=== PATIENT | female | born 1945 | race African-American/Black ===

== ENCOUNTER 2018-12-01 14:11 | Inpatient (IN) | payer OTHER ==
--- NOTE | 2018-12-01 15:09 | PDOC ---
History of Present Illness - General Chief Complaint: Vaginal Bleeding Stated Complaint: VAGINAL BLEED Time Seen by Provider: 12/01/18 14:56 History Source: Patient Exam Limitations: No Limitations - History of Present Illness Initial Comments: 73 yo F w a pmh of COPD presents to the ER with exertional lightheadedness, dizziness, and heavy vaginal bleeding of one days duration. She was recently hospitalized at [facility] 6 days prior for a UTI where she was incidentally found to have a low hemoglobin in the 6's and ended up requiring 3 blood transfusions. When she left the hospital her hB was 10. Today she states that she experienced vaginal bleeding for the first time and now things make a bit more sense bc they did not know from where she was losing blood when she was at [facility]. The patient also endorses a recent 10 IB unintentional weight loss over the past 2 months as well as loss of appetite. She is typically able to eat a significant amount of food but recently she is simply not hungry. She also endorses on and off low grade fevers for the past month as well as generalized weakness. She has a significant 40+ pack year smoking history in the past although she has not smoked for the past 15 years. She has been experiencing a significant amount of hematuria and has suprapubic abdominal pain. She denies recent fchest pain, SOB, difficulty breathing, headache, blurry vision, or back pain. PCP: Vicente Roldan S - [phone] from [facility] PSH: Tubes tied many years ago Social Hx: Former 40 Pack year smoking history. Former alcohol abuser. Denies current alcohol, cigarettes, or illicit drug usage. Allergies: Shellfish. Penicillins. Past History - Past Medical History Allergies/Adverse Reactions: Allergies Allergy/AdvReac Type Severity Reaction Status Date / Time Penicillins Allergy Verified 12/01/18 19:09 shellfish derived Allergy Verified 12/01/18 14:30 Home Medications: Ambulatory Orders Albuterol Sulfate Inhaler - [Ventolin Hfa Inhaler -] 1 puff IH PRN 12/01/18 Ferrous Sulfate [Iron] 325 mg PO DAILY 12/01/18 Fluticasone Propionate [Flovent Diskus] 100 mcg IH PRN 12/01/18 Sennosides/Docusate Sodium [Senna-Docusate Sodium Tablet] 1 each PO PRN COPD: Yes - Suicide/Smoking/Psychosocial Hx Smoking History: Former smoker Have you smoked in the past 12 months: No Information on smoking cessation initiated: No Hx Alcohol Use: Yes (past) Drug/Substance Use Hx: No Review of Systems - Review of Systems Able to Perform ROS?: Yes Comments:: CONSTITUTIONAL: Present: Fatigue, weight loss, fevers, chills EYES: Absent: visual changes ENT: Absent: ear pain, no sore throat CARDIOVASCULAR: Absent: chest pain, no palpitations RESPIRATORY: Absent: cough, no SOB GI: Present: Abdominal pain Absent: no nausea, no vomiting, no constipation, no diarrhea GENITOURINARY: Present: Hematuria, dysuria Absent: no frequency MUSKULOSKELETAL: Absent: back pain, no arthralgia, no myalgia SKIN: Absent: rash NEURO: Absent: headache *Physical Exam - Vital Signs Last Vital Signs Temp Pulse Resp BP Pulse Ox 97.6 F 85 18 140/60 100 12/01/18 14:32 12/01/18 14:32 12/01/18 14:32 12/01/18 14:32 12/01/18 14:32 - Physical Exam Comments: GENERAL: Patient appears pale and mal-nourished. No apparent distress. HEENT: Normocephalic, atraumatic. PERRL, EOM intact. CARDIOVASCULAR: Normal S1, S2. Regular rate and rhythm. PULMONARY: No evidence of respiratory distress. Lungs clear to auscultation bilaterally. No wheezing, rales or rhonchi. ABDOMEN: There is suprapubic TTP. Abdomen is still soft and non-distended. EXTREMITIES: Normal ROM in all four extremities. No gross deformities. SKIN: cool, dry. No rash NEUROLOGICAL: No focal neurological deficits. Female Pelvic Exam: positive: cervical os closed, normal adnexa, normal size ovaries, discharge (blood), Urethra (bloody), vaginal bleeding, other (atrophied ). negative: normal external exam (blood on labia majora), CMT, lesions, Bartholin mass, Scalene Gland, adnexal tenderness ED Treatment Course - LABORATORY CBC & Chemistry Diagram: 12/01/18 15:32 12/01/18 15:32 Medical Decision Making - Medical Decision Making 73 yo F w a pmh of COPD presents to the ER with exertional lightheadedness, dizziness, and heavy vaginal bleeding of one days duration. She was recently hospitalized at [facility] 6 days prior for a UTI where she was incidentally found to have a low hemoglobin in the 6's and ended up requiring 3 blood transfusions. When she left the hospital her hB was 10. Today she states that she experienced vaginal bleeding for the first time and now things make a bit more sense bc they did not know from where she was losing blood when she was at [facility]. The patient also endorses a recent 10 IB unintentional weight loss over the past 2 months as well as loss of appetite. She is typically able to eat a significant amount of food but recently she is simply not hungry. She also endorses on and off low grade fevers for the past month as well as generalized weakness. She has a significant 40+ pack year smoking history in the past although she has not smoked for the past 15 years. She has been experiencing a significant amount of hematuria and has suprapubic abdominal pain. She denies recent fchest pain, SOB, difficulty breathing, headache, blurry vision, or back pain. VS: WNL DDx IBNLT: Bladder cancer, schistosomiosis, uterine mass - polyp vs leighmyoma vs hypertrophy vs mass, UTI/pylo, urinary obstruction/cystocele. Plan: Labs, Urine, Pelvic US, IV hydration, re-assess. Cr on November 25 at [facility] was 1.6 - Here today the Cr 1.7 - In September at [facility] the patient had a urine culture which grew klebsiella which was susceptible to TMP/SMX, amoxicillin, ampicillin, and Cipro Pelvic US shows fibroids but is not definitive. - Will admit patient to med/surge to have malignancy ruled out. *DC/Admit/Observation/Transfer Diagnosis at time of Disposition: Hypotension, Lightheadedness, Hematuria - Discharge Dispostion Condition at time of disposition: Guarded Decision to Admit order: Yes - Referrals Referrals: ON STAFF,NOT [Primary Care Provider] - - Patient Instructions - Post Discharge Activity
[2018-12-01] MEDS ORDERED: SODIUM CHLORIDE 1,000 ML IV STA (15:10)
--- NOTE | 2018-12-01 15:11 | PDOC ---
Attending Attestation - HPI HPI: 12/01/18 16:28 The patient is a 73 year old female, with a significant PMH of COPD who presents to the emergency department with one day of weakness, dizziness, and increased vaginal bleeding. The patient states she was admitted and discharged from [facility] a week ago for a UTI, where she was found to have a low hemoglobin and ended up needing 3 blood transfusions. The patient states that today is her first day experiencing vaginal bleeding. The patient states she has been endorsing poor appetite, hematuria, and low grade fever for the past month. The patient denies chest pain, shortness of breath, or headache. The patient denies chills, diarrhea or constipation. The patient denies dysuria, frequency, or urgency Allergies: shellfish derived and penicillins Past surgical history: None reported Social history: Former 40 Pack year smoking history. Denies current alcohol, cigarettes, or illicit drug usage. PCP: Vicente Roldan S - [phone] from [facility] <Milady Rowe - Last Filed: 12/01/18 16:28> - Resident Resident Name: Nicholas Rey - ED Attending Attestation I have performed the following: I have examined & evaluated the patient, The case was reviewed & discussed with the resident, I agree w/resident's findings & plan, Exceptions are as noted - Physicial Exam PE: GENERAL: Awake, alert, and fully oriented, in no acute distress. +Pallor. Appears frail. HEAD: No signs of trauma EYES: PERRLA, EOMI, sclera anicteric, conjunctiva clear ENT: Auricles normal inspection, hearing grossly normal, nares patent, oropharynx clear without exudates. Moist mucosa NECK: Normal ROM, supple, no lymphadenopathy, JVD, or masses LUNGS: Breath sounds equal, clear to auscultation bilaterally. No wheezes, and no crackles HEART: Regular rate and rhythm, normal S1 and S2, no murmurs, rubs or gallops ABDOMEN: Soft, nontender, normoactive bowel sounds. No guarding, no rebound. No masses EXTREMITIES: Normal range of motion, no edema. No clubbing or cyanosis. No cords, erythema, or tenderness NEUROLOGICAL: Cranial nerves II through XII grossly intact. Normal speech. Motor and sensation intact. Ambulates with assistance SKIN: Warm, Dry, normal turgor, no rashes or lesions noted. - Medical Decision Making Pt presents with weakness. Found to have gross hematuria. Will send labs, UA, and obtain pelvic sono. <Tianna Correa - Last Filed: 12/01/18 16:34> Attestations - Attestations 12/01/18 16:29 Documentation prepared by Milady Rowe, acting as medical scheduler for Tianna Correa MD, MD <Milady Rowe - Last Filed: 12/01/18 16:28>
[2018-12-01 16:17] LABS: BASO % 0.7 % (0-2.0); EOS % 3.8 % (0-4.5); HEMATOCRIT 31.2 % (32.4-45.2); HEMOGLOBIN 9.8 GM/dL (10.7-15.3); LYMPH % 23.5 % (8-40); MCH 24.9 pg (25.7-33.7); MCHC 31.5 g/dl (32.0-36.0); MEAN CELL VOLUME 79.1 fl (80-96); MEAN PLT VOLUME 8.2 fl (7.5-11.1); MONO % 6.3 % (3.8-10.2); NEUT % 65.7 % (42.8-82.8); PLATELET COUNT 359 K/MM3 (134-434); RBC 3.95 M/mm3 (3.60-5.2); RDW 20.2 % (11.6-15.6); WHITE BLOOD COUNT 10.2 K/mm3 (4.0-10.0)
[2018-12-01 16:26] LABS: INR 1.22 (0.83-1.09); PROTHROMBIN TIME (PATIENT) 14.4 SEC (9.7-13.0)
[2018-12-01 16:55] LABS: ALBUMIN 2.9 g/dl (3.4-5.0); ALK PHOS 87 U/L (45-117); ANION GAP 7 MMOL/L (8-16); BILIRUBIN,TOTAL 0.6 mg/dL (0.2-1); BLOOD UREA NITROGEN 23 mg/dL (7-18); CALCIUM 9.8 mg/dL (8.5-10.1); CHLORIDE 106 mmol/L (98-107); CO2 25 mmol/L (21-32); CREATININE 1.7 mg/dL (0.55-1.3); GLUCOSE,RANDOM 93 mg/dL (74-106); SGPT/ALT 11 U/L (13-61); SODIUM 138 mmol/L (136-145); TOT PROT 7.4 g/dl (6.4-8.2)
[2018-12-01 16:56] LABS: PH,URINE 6.5 (5.0-8.0); POTASSIUM 4.6 mmol/L (3.5-5.1); SGOT/AST 16 U/L (15-37); URINE BILIRUBIN 3+ (NEGATIVE); URINE GLUCOSE (UA) Negative (NEGATIVE); URINE KETONE 1+ (NEGATIVE); URINE LEUK ESTERASE 3+ (NEGATIVE); URINE NITRITE Negative (NEGATIVE); URINE PROTEIN 3+ (NEGATIVE)
[2018-12-01 16:58] LABS: URINE APPEARANCE BLOODY; URINE COLOR RED
[2018-12-01 18:19] LABS: URINE RBC >100 /hpf (0-4); URINE WBC >100 /hpf (0-5)
[2018-12-01] MEDS ORDERED: SULFAMETHOXAZOLE/TRIMETHOPRIM 800MG/160MG D.S. TABLET PO ONE (18:33)
[2018-12-01] MEDS ORDERED: SULFAMETHOXAZOLE/TRIMETHOPRIM 800MG/160MG D.S. TABLET ONE (19:00)
--- NOTE | 2018-12-01 19:40 | PN ---
Teaching Attending Note Name of Resident: Chelle Valderrama ATTENDING PHYSICIAN STATEMENT I saw and evaluated the patient. I reviewed the resident's note and discussed the case with the resident. I agree with the resident's findings and plan as documented. SUBJECTIVE: Patient is a 73 year old woman with a PMH of COPD and Penicillin allergy who presents to the ER with one day of weakness, dizziness, and increased vaginal bleeding. She was admitted and discharged from [facility] a week ago for a UTI, and found to have a low hemoglobin of about 6 and got 3 units of PRBC transfusion with Hb rising to 10 on discharge. The patient states that today is her first day experiencing vaginal bleeding. The patient states she has had poor appetite, hematuria, on and off low grade fevers for the past month as well as generalized weakness. She has a 40+ pack year smoking history but she has not smoked for the past 15 years. She has been experiencing a significant amount of hematuria and has suprapubic abdominal pain. She has recent 10 lbs unintentional weight loss over the past 2 months. The patient denies chest pain, shortness of breath, headache , chills, change in bowel habit, dysuria, frequency, or urgency OBJECTIVE: Alert Vital Signs Period Temp Pulse Resp BP Sys/Palma Pulse Ox Last 24 Hr 97.6 F-98.9 F 78-112 18-20 110-151/60-114 96-100 HEENT: No Jaundice, eye redness or discharge, PERRLA, EOMI. Normocephalic, atraumatic. External ears are normal and hearing is grossly intact. No nasal discharge. Neck: Supple, nontender. No palpable adenopathy or thyromegaly. No JVD Chest: Good effort. Clear to auscultation and percussion. Heart: Regular. No S3, rub or murmur Abdomen: Not distended, soft, nontender and no HSM. No rebound or guarding. Normal bowel sounds. Ext: Peripheral pulses intact. No leg edema. Skin: Warm and dry. No petechiae, rash or ecchymosis. Neuro: Alert. Oriented x3. CN 2-12 grossly intact. Sensation grossly intact in all four extremities and DTR are symmetric. Psych: Appropriate mood and affect. Good insight. Home Medications Medication Instructions Recorded Albuterol Sulfate Inhaler - 1 puff IH PRN 12/01/18 [Ventolin Hfa Inhaler -] Ferrous Sulfate [Iron] 325 mg PO DAILY 12/01/18 Fluticasone Propionate [Flovent 100 mcg IH PRN 12/01/18 Diskus] Sennosides/Docusate Sodium 1 each PO PRN 12/01/18 [Senna-Docusate Sodium Tablet] Abnormal Lab Results 12/01/18 12/01/18 12/01/18 15:32 15:32 15:32 WBC 10.2 H Hgb 9.8 L Hct 31.2 L MCV 79.1 L MCH 24.9 L MCHC 31.5 L RDW 20.2 H PT with INR 14.40 H INR 1.22 H Anion Gap 7 L BUN 23 H Creatinine 1.7 H ALT 11 L Albumin 2.9 L Urine Protein Urine Ketones Urine Blood Urine Bilirubin Urine Urobilinogen Ur Leukocyte Esterase 12/01/18 15:32 WBC Hgb Hct MCV MCH MCHC RDW PT with INR INR Anion Gap BUN Creatinine ALT Albumin Urine Protein 3+ H Urine Ketones 1+ H Urine Blood 3+ H Urine Bilirubin 3+ H Urine Urobilinogen 2.0 H Ur Leukocyte Esterase 3+ H ASSESSMENT AND PLAN: 1. Vaginal bleeding/Hematuria - Must first clarify the source of bleeding by doing a straight moss catheterization to obtain a urine sample for urinalysis. The result will guide further workup to search for malignancy or disease process in the correct organ system - i.e whether she will need cystoscopy, nephrologic work up or DEBT COLLECTOR evaluation. Will get CT abd/pelvis with contrast. To investigate low MCV anemia, will also get serial stool guaiacs and iron studies. Once source of blood loss is established and iron deficiency confirmed , then moving forward she can be treated with IV iron (and may be Procrit) to preempt further blood transfusions. Continue duoneb PRN for COPD, get CXR and EKG. 2. Hypoalbuminemia - Possibly due to combined effects of malnutrition, proteinuria and inflammation associated with comorbid chronic conditions. Will ensure adequate dietary protein intake and also consult medical scientist. 3. CKD - No obvious risk factor. Needs basic nephrologic workup including kidney sonogram, PTH, phosphate. Encourage increased oral fluid intake to correct any associated dehydration. Consult nephrology and avoid nephrotoxic agents such as NSAIDS, aminoglycosides, contrast dyes and certain Alternative medicine products. 4. DVT prophylaxis - SCDs, TEDs 5. Advance directives - Full code
--- NOTE | 2018-12-01 19:40 | HP ---
CHIEF COMPLAINT: h5 PCP: Vicente Shultz [phone] [facility] HISTORY OF PRESENT ILLNESS: This is a 73 yo F with PMH of COPD, 40 pack yr smoker quit 15 yr ago, who presents due to dizziness, suprapubic pain and heavy vaginal bleeding x 1d. spotting started 3 days ago. pelvic pain and pressure is relieved by urination, passing several large blood clots. Hospitalized at [facility] 6 d ago for UTI and found to have anemia of unknown source (no hematuria or vaginal bleeding at that time), required 3 transfusions for Hgb 6; was dcd with hgb 10. reports lack of appetite and unintentional 10 b weight loss over 2 mo, as well as low grade fevers and malaise. Patient had history of UTIs, for which she was at [facility] several times in the past, including last admission. was first told she has mild anemia in august this yr and first told she has elevated creat 6 d ago. Denies h/a, cp, cough, sob, n/n, diarrhea constipation, melena, hematochezia, dysuria, flank pain. ER course was notable for: (1) bladder US (2)bactrim, NS Recent Travel: denies PAST MEDICAL HISTORY: as above PAST SURGICAL HISTORY: tubal ligaton Social History: Smokin pack yr uit 15 yrs ago Alcohol: former heavy drinker Drugs: denies Family History: noncontributory Allergies Penicillins Allergy (Verified 12/01/18 19:09) shellfish derived Allergy (Verified 12/01/18 14:30) HOME MEDICATIONS: Home Medications Medication Instructions Recorded Albuterol Sulfate Inhaler - 1 puff IH PRN 12/01/18 [Ventolin Hfa Inhaler -] Ferrous Sulfate [Iron] 325 mg PO DAILY 12/01/18 Fluticasone Propionate [Flovent 100 mcg IH PRN 12/01/18 Diskus] Sennosides/Docusate Sodium 1 each PO PRN 12/01/18 [Senna-Docusate Sodium Tablet] REVIEW OF SYSTEMS CONSTITUTIONAL: Absent: chills, diaphoresis HEENT: Absent: rhinorrhea, nasal congestion, throat pain CARDIOVASCULAR: Absent: chest pain, syncope, palpitations, irregular heart rate, lightheadedness , peripheral edema RESPIRATORY: Absent: cough, shortness of breath, orthopnea, wheezing, stridor, hemoptysis GASTROINTESTINAL: Absent: abdominal distension, nausea, vomiting, diarrhea, constipation, melena, hematochezia GENITOURINARY: Absent: dysuria, flank pain, genital pain MUSCULOSKELETAL: Absent: back pain, neck pain SKIN: Absent: rash, itching, pallor HEMATOLOGIC/IMMUNOLOGIC: Absent: easy bleeding, easy bruising ENDOCRINE: Absent: heat intolerance, cold intolerance NEUROLOGIC: Absent: headache, focal weakness or paresthesias PSYCHIATRIC: Absent: anxiety, depression PHYSICAL EXAMINATION Vital Signs - 24 hr 12/01/18 12/01/18 12/01/18 14:32 18:15 19:06 Temperature 97.6 F 97.9 F 98.9 F Pulse Rate 85 Pulse Rate [ 78 112 H Right Radial] Respiratory 18 20 Rate Blood Pressure 140/60 Blood Pressure 110/65 151/114 H [Left Arm] O2 Sat by Pulse 100 100 96 Oximetry (%) GENERAL: Awake, alert, and fully oriented, in no acute distress. HEAD: Normal with no signs of trauma. EYES: Pupils equal, round and reactive to light, extraocular movements intact, sclera anicteric, conjunctiva clear. EARS, NOSE, THROAT: Moist mucous membranes. NECK: supple LUNGS: Breath sounds equal, clear to auscultation bilaterally. HEART: Regular rate and rhythm, normal S1 and S2 without murmur, rub or gallop. ABDOMEN: Soft, not distended, normoactive bowel sounds, no guarding, no rebound , no masses. MUSCULOSKELETAL: No CVA tenderness. UPPER EXTREMITIES: 2+ pulses, warm, well-perfused. LOWER EXTREMITIES: warm, well-perfused. No calf tenderness. No peripheral edema. NEUROLOGICAL: Cranial nerves II-XII grossly intact. Normal speech. PSYCHIATRIC: Cooperative. Good eye contact. Appropriate mood and affect. SKIN: Warm, dry Laboratory Results - last 24 hr 12/01/18 12/01/18 12/01/18 15:32 15:32 15:32 WBC 10.2 H RBC 3.95 Hgb 9.8 L Hct 31.2 L MCV 79.1 L MCH 24.9 L MCHC 31.5 L RDW 20.2 H Plt Count 359 MPV 8.2 Absolute Neuts (auto) 6.7 Neutrophils % 65.7 Lymphocytes % 23.5 Monocytes % 6.3 Eosinophils % 3.8 Basophils % 0.7 Nucleated RBC % 0 PT with INR INR Sodium 138 Potassium 4.6 Chloride 106 Carbon Dioxide 25 Anion Gap 7 L BUN 23 H Creatinine 1.7 H Creat Clearance w eGFR 29.38 Random Glucose 93 Calcium 9.8 Total Bilirubin 0.6 AST 16 ALT 11 L Alkaline Phosphatase 87 Total Protein 7.4 Albumin 2.9 L Urine Color Urine Appearance Urine pH Ur Specific [place] Urine Protein Urine Glucose (UA) Urine Ketones Urine Blood Urine Nitrite Urine Bilirubin Urine Urobilinogen Ur Leukocyte Esterase Urine WBC (Auto) Urine RBC (Auto) Blood Type O POSITIVE Antibody Screen Negative 12/01/18 12/01/18 15:32 15:32 WBC RBC Hgb Hct MCV MCH MCHC RDW Plt Count MPV Absolute Neuts (auto) Neutrophils % Lymphocytes % Monocytes % Eosinophils % Basophils % Nucleated RBC % PT with INR 14.40 H INR 1.22 H Sodium Potassium Chloride Carbon Dioxide Anion Gap BUN Creatinine Creat Clearance w eGFR Random Glucose Calcium Total Bilirubin AST ALT Alkaline Phosphatase Total Protein Albumin Urine Color Red Urine Appearance Bloody Urine pH 6.5 Ur Specific [place] 1.015 Urine Protein 3+ H Urine Glucose (UA) Negative Urine Ketones 1+ H Urine Blood 3+ H Urine Nitrite Negative Urine Bilirubin 3+ H Urine Urobilinogen 2.0 H Ur Leukocyte Esterase 3+ H Urine WBC (Auto) >100 Urine RBC (Auto) >100 Blood Type Antibody Screen ASSESSMENT/PLAN: This is a 73 yo F with PMH of COPD, 40 pack yr smoker quit 15 yr ago, who presents due to dizziness, suprapubic pain and heavy vaginal bleeding x 1d. Symptomatic anemia Hematuria vs vaginal bleeding: bladder polyp, CA, nephritic/nephrotic, hemorrhagic cysttis vs uterine pathlogy CKD COPD -bladder us appreciated, no mass appreciated -need to pinpoint bleeding source. Ua was clean catch, needs to be repeated with straight cath -doubt active bladder infection, will refrain from further abx -CT abd/pelvis -ckd/kieran may be obstructive, prerenal or a primary kidney issue -continue albuterol prn Problem List - Problem (1) Anemia Code(s): D64.9 - ANEMIA, UNSPECIFIED (2) Hematuria Code(s): R31.9 - HEMATURIA, UNSPECIFIED (3) Lightheadedness Code(s): R42 - DIZZINESS AND GIDDINESS Visit type - Emergency Visit Emergency Visit: Yes ED Registration Date: 12/01/18 Care time: The patient presented to the Emergency Department on the above date and was hospitalized for further evaluation of their emergent condition. - New Patient This patient is new to me today: Yes Date on this admission: 12/01/18 - Critical Care Critical Care patient: No
[2018-12-01] MEDS ORDERED: ALBUTEROL SO4 8 GM HFA INHALER IH PRN (20:00)
[2018-12-01] MEDS ORDERED: SODIUM CHLORIDE 1,000 ML IV SCH (20:45)
[2018-12-01] MEDS ORDERED: SENNOSIDES/DOCUSATE COMBO (SENNA PLUS) TABLET (UD) PO PRN (22:00)
[2018-12-01 22:18] LABS: URINE APPEARANCE TURBID; URINE COLOR RED
[2018-12-01 22:19] LABS: URINE BILIRUBIN SMALL (NEGATIVE); URINE GLUCOSE (UA) NEGATIVE (NEGATIVE); URINE KETONE NEGATIVE (NEGATIVE)
[2018-12-01 22:20] LABS: PH,URINE 7.5 (5.0-8.0)
[2018-12-01 22:25] LABS: URINE LEUK ESTERASE 3+ (NEGATIVE); URINE NITRITE NEGATIVE (NEGATIVE); URINE PROTEIN 2+ (NEGATIVE); URINE UROBILINOGEN 0.2 mg/dL (0.2-1.0)
[2018-12-01 22:26] LABS: URINE RBC 5207.9 /hpf (0-4); URINE WBC 1212.7 /hpf (0-5)
[2018-12-02 07:33] LABS: HEMATOCRIT 28.7 % (32.4-45.2); HEMOGLOBIN 9.1 GM/dL (10.7-15.3); MCH 24.8 pg (25.7-33.7); MCHC 31.6 g/dl (32.0-36.0); MEAN CELL VOLUME 78.5 fl (80-96); PLATELET COUNT 335 K/MM3 (134-434); RBC 3.66 M/mm3 (3.60-5.2); RDW 20.4 % (11.6-15.6); WHITE BLOOD COUNT 8.8 K/mm3 (4.0-10.0)
[2018-12-02 07:48] LABS: ANION GAP 6 MMOL/L (8-16); BLOOD UREA NITROGEN 17 mg/dL (7-18); CALCIUM 8.3 mg/dL (8.5-10.1); CHLORIDE 112 mmol/L (98-107); CO2 24 mmol/L (21-32); CREATININE 1.6 mg/dL (0.55-1.3); GLUCOSE,RANDOM 81 mg/dL (74-106); MAGNESIUM 2.3 mg/dL (1.8-2.4); PHOSPHOROUS 2.4 mg/dL (2.5-4.9); POTASSIUM 4.5 mmol/L (3.5-5.1); SODIUM 142 mmol/L (136-145)
--- NOTE | 2018-12-02 08:35 | PN ---
Physical Exam: SUBJECTIVE: Patient seen and examined, She states that she still has urinary bleeding and has clots with it OBJECTIVE: Vital Signs Period Temp Pulse Resp BP Sys/Palma Pulse Ox Last 24 Hr 97.6 F-98.9 F 69-112 18-20 110-151/60-114 96-100 in no distress, CVS:s1S2 CTAB Abs:BS+, NT/ND EXT: No edema Laboratory Results - last 24 hr 12/01/18 12/01/18 12/01/18 15:32 15:32 15:32 WBC 10.2 H RBC 3.95 Hgb 9.8 L Hct 31.2 L MCV 79.1 L MCH 24.9 L MCHC 31.5 L RDW 20.2 H Plt Count 359 MPV 8.2 Absolute Neuts (auto) 6.7 Neutrophils % 65.7 Lymphocytes % 23.5 Monocytes % 6.3 Eosinophils % 3.8 Basophils % 0.7 Nucleated RBC % 0 PT with INR INR Sodium 138 Potassium 4.6 Chloride 106 Carbon Dioxide 25 Anion Gap 7 L BUN 23 H Creatinine 1.7 H Creat Clearance w eGFR 29.38 Random Glucose 93 Calcium 9.8 Phosphorus Magnesium Total Bilirubin 0.6 AST 16 ALT 11 L Alkaline Phosphatase 87 Total Protein 7.4 Albumin 2.9 L Urine Color Urine Appearance Urine pH Ur Specific [place] Urine Protein Urine Glucose (UA) Urine Ketones Urine Blood Urine Nitrite Urine Bilirubin Urine Urobilinogen Ur Leukocyte Esterase Urine WBC (Auto) Urine RBC (Auto) Blood Type O POSITIVE Antibody Screen Negative 12/01/18 12/01/18 12/01/18 15:32 15:32 21:40 WBC RBC Hgb Hct MCV MCH MCHC RDW Plt Count MPV Absolute Neuts (auto) Neutrophils % Lymphocytes % Monocytes % Eosinophils % Basophils % Nucleated RBC % PT with INR 14.40 H INR 1.22 H Sodium Potassium Chloride Carbon Dioxide Anion Gap BUN Creatinine Creat Clearance w eGFR Random Glucose Calcium Phosphorus Magnesium Total Bilirubin AST ALT Alkaline Phosphatase Total Protein Albumin Urine Color Red Red Urine Appearance Bloody Turbid Urine pH 6.5 7.5 Ur Specific [place] 1.015 1.013 Urine Protein 3+ H 2+ H Urine Glucose (UA) Negative Negative Urine Ketones 1+ H Negative Urine Blood 3+ H 3+ H Urine Nitrite Negative Negative Urine Bilirubin 3+ H Small Urine Urobilinogen 2.0 H 0.2 Ur Leukocyte Esterase 3+ H 3+ H Urine WBC (Auto) >100 1212.7 Urine RBC (Auto) >100 5207.9 Blood Type Antibody Screen 12/02/18 12/02/18 12/02/18 06:30 06:30 06:30 WBC 8.8 RBC 3.66 Hgb 9.1 L Hct 28.7 L MCV 78.5 L MCH 24.8 L MCHC 31.6 L RDW 20.4 H Plt Count 335 MPV 8.0 Absolute Neuts (auto) Neutrophils % No Result Required. Lymphocytes % No Result Required. Monocytes % Eosinophils % Basophils % Nucleated RBC % 0 PT with INR INR Sodium 142 Potassium 4.5 Chloride 112 H Carbon Dioxide 24 Anion Gap 6 L BUN 17 Creatinine 1.6 H Creat Clearance w eGFR 31.51 Random Glucose 81 Calcium 8.3 L Phosphorus 2.4 L Magnesium 2.3 Total Bilirubin AST ALT Alkaline Phosphatase Total Protein Albumin Urine Color Urine Appearance Urine pH Ur Specific [place] Urine Protein Urine Glucose (UA) Urine Ketones Urine Blood Urine Nitrite Urine Bilirubin Urine Urobilinogen Ur Leukocyte Esterase Urine WBC (Auto) Urine RBC (Auto) Blood Type O POSITIVE Antibody Screen Active Medications Generic Name Dose Route Start Last Admin Trade Name Freq PRN Reason Stop Dose Admin Acetaminophen 650 mg 12/01/18 19:55 Tylenol - PO Q4H PRN PAIN Albuterol Sulfate 1 puff 12/01/18 20:00 Ventolin Hfa Inhaler - IH Q4H PRN SHORTNESS OF BREATH/WHEEZING Sodium Chloride 1,000 mls @ 75 mls/hr 12/01/18 20:45 12/01/18 21:45 Normal Saline - IV 75 mls/hr ASDIR BEBETO Administration Senna/Docusate Sodium 1 tablet 12/01/18 22:00 Pericolace - PO HS PRN CONSTIPATION Bladder US: bilateral cortical cysts CT scan: Lung mass+, Gall stone+m, Fibroid uterus ASSESSMENT/PLAN: She is a 73 Y/O F W anemia, recently admitted to [facility] for anemia and 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 She states that she was in her [facility] till yesterday when she devenloped hematuria with passing clots. She has hematuria in the ED which improved with hydration and now just passed another clot. Hematuria: will place moss, hydration, if needed will C/W irritation, will need treatment with IV antibioitics, will get get urologgy to evaluate the patient , will need cystoscopy as O/P. 2. Hypoalbuminemia - Possibly due to combined effects of malnutrition, proteinuria and inflammation associated with comorbid chronic conditions. Will ensure adequate dietary protein intake and also consult dry sand molder. 3. CKD : WILL MONITOR AT THIS TIME 4. DVT prophylaxis - SCDs, TEDs 5. Advance directives - Full code 6:Lung mass, states that she was evaluated by biopsy in [facility] and no need for intervention other the F/U 7: FIBROid: F/U with CELLULAR EQUIPMENT INSTALLER as O/P. Visit type - Emergency Visit Emergency Visit: Yes ED Registration Date: 12/01/18 Care time: The patient presented to the Emergency Department on the above date and was hospitalized for further evaluation of their emergent condition. - New Patient This patient is new to me today: Yes Date on this admission: 12/02/18 - Critical Care Critical Care patient: No - Discharge Referral Referred to [facility] No
[2018-12-02 11:13] LABS: ANISOCYTOSIS 1+; MACROCYTOSIS 0; PLATELET ESTIMATE NORMAL
[2018-12-02] MEDS ORDERED: DEXTROSE 5%-0.45% SALINE 1,000 ML IV SCH (18:00)
[2018-12-03 09:43] LABS: ANION GAP 5 MMOL/L (8-16); BLOOD UREA NITROGEN 13 mg/dL (7-18); CALCIUM 9.4 mg/dL (8.5-10.1); CHLORIDE 111 mmol/L (98-107); CO2 23 mmol/L (21-32); CREATININE 1.4 mg/dL (0.55-1.3); GLUCOSE,RANDOM 97 mg/dL (74-106); POTASSIUM 4.8 mmol/L (3.5-5.1); SODIUM 139 mmol/L (136-145)
--- NOTE | 2018-12-03 10:47 | PN ---
Physical Exam: SUBJECTIVE: Patient seen and examined OBJECTIVE: Vital Signs Period Temp Pulse Resp BP Sys/Palma Pulse Ox Last 24 Hr 97.8 F-98.2 F 68-78 16-18 94-115/54-76 98-100 GENERAL: The patient is awake, alert, and fully oriented, in no acute distress. HEAD: Normal with no signs of trauma. EYES: PERRL, extraocular movements intact, sclera anicteric, conjunctiva clear. No ptosis. ENT: Ears normal, nares patent, oropharynx clear without exudates, moist mucous membranes. NECK: Trachea midline, full range of motion, supple. LUNGS: Breath sounds equal, clear to auscultation bilaterally, no wheezes, no crackles, no accessory muscle use. HEART: Regular rate and rhythm, S1, S2 without murmur, rub or gallop. ABDOMEN: Soft, nontender, nondistended, normoactive bowel sounds, no guarding, no rebound, no hepatosplenomegaly, no masses. EXTREMITIES: 2+ pulses, warm, well-perfused, no edema. NEUROLOGICAL: Cranial nerves II through XII grossly intact. Normal speech, gait not observed. PSYCH: Normal mood, normal affect. SKIN: Warm, dry, normal turgor, no rashes or lesions noted Laboratory Results - last 24 hr 12/02/18 12/03/18 06:30 08:45 Neutrophils % (Manual) 75.8 Band Neutrophils % 0.0 Lymphocytes % (Manual) 13.1 Monocytes % (Manual) 4 Eosinophils % (Manual) 6.1 H Basophils % (Manual) 1.0 Myelocytes % (Man) 0 Promyelocytes % (Man) 0 Blast Cells % (Manual) 0 Metamyelocytes 0 Hypochromia 1+ Platelet Estimate Normal Polychromasia 1+ Poikilocytosis 1+ Anisocytosis 1+ Microcytosis 1+ Macrocytosis 0 Sodium 139 Potassium 4.8 Chloride 111 H Carbon Dioxide 23 Anion Gap 5 L BUN 13 Creatinine 1.4 H Creat Clearance w eGFR 36.76 Random Glucose 97 Calcium 9.4 Active Medications Generic Name Dose Route Start Last Admin Trade Name Freq PRN Reason Stop Dose Admin Acetaminophen 650 mg 12/01/18 19:55 Tylenol - PO Q4H PRN PAIN Albuterol Sulfate 1 puff 12/01/18 20:00 Ventolin Hfa Inhaler - IH Q4H PRN SHORTNESS OF BREATH/WHEEZING Dextrose/Sodium Chloride 1,000 mls @ 75 mls/hr 12/02/18 18:00 12/02/18 18:21 D5-1/2ns - IV 75 mls/hr ASDIR BEBETO Administration Senna/Docusate Sodium 1 tablet 12/01/18 22:00 Pericolace - PO HS PRN CONSTIPATION ASSESSMENT/PLAN: 73 Y/O F W anemia, recently admitted to [facility] for anemia and 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 She states that she was in her [facility] till the day prior to the admission when she developed hematuria with passing clots. She had hematuria in the ED which improved with hydration and now just passed another clot.was staretd on IV fluids in the ED again and this morning urine has clear with no more hematuria, moss was never placed in the ED ( only straight cath initially) Hematuria: has cleared at this time, urine not that significant for infection at this time. Will DC IVF, will ask urology for further evaluation and possible need for cystoscopy UA not significant for infection at this time, will ask ID for recs as she was recently treated for HSV. pending F/u CBC 2. Hypoalbuminemia - Possibly due to combined effects of malnutrition, proteinuria and inflammation associated with comorbid chronic conditions. Will ensure adequate dietary protein intake and also consult marriage therapist. 3.Anemia: microcytic, hypochromic anemia with increased RDW most likely iron deficiency: will star on iron supplements, most likely with likely with GI loss as she was anemia prior to the hematuria, still needs to get colonoscopy as O/P 4. CINTHIA over CKD: has improved with hydration , no finding in favor of hydronephrosis and obstruction on the imaging. 5. DVT prophylaxis - will start on lovenox as no more bleeding at this time 6. Advance directives - Full code 7:Lung mass, states that she was evaluated by biopsy in [facility] and no need for intervention other the F/U 8: FIBROid: F/U with CATHEAD OPERATOR as O/P. Dispo: most likely home tonight or early tomorrow, has no services at home Visit type - Emergency Visit Emergency Visit: Yes ED Registration Date: 12/01/18 Care time: The patient presented to the Emergency Department on the above date and was hospitalized for further evaluation of their emergent condition. - New Patient This patient is new to me today: No - Critical Care Critical Care patient: No - Discharge Referral Referred to [facility] No
[2018-12-03 10:50] LABS: BASO % 0.7 % (0-2.0); EOS % 5.8 % (0-4.5); HEMATOCRIT 30.7 % (32.4-45.2); HEMOGLOBIN 9.8 GM/dL (10.7-15.3); LYMPH % 23.5 % (8-40); MCH 25.4 pg (25.7-33.7); MCHC 31.9 g/dl (32.0-36.0); MEAN CELL VOLUME 79.6 fl (80-96); MEAN PLT VOLUME 8.2 fl (7.5-11.1); MONO % 5.6 % (3.8-10.2); NEUT % 64.4 % (42.8-82.8); PLATELET COUNT 331 K/MM3 (134-434); RBC 3.85 M/mm3 (3.60-5.2); RDW 20.9 % (11.6-15.6); WHITE BLOOD COUNT 10.4 K/mm3 (4.0-10.0)
[2018-12-03] MEDS: FERROUS SO4 325 MG TABLET (FP) PO SCH ×2 (11:35→16:54)
[2018-12-03] MEDS: ENOXAPARIN NA (PORCINE) 30 MG/0.3 ML DISP.SYRIN SQ SCH ×2 (11:35→11:47)
[2018-12-03 12:27] VITALS: BMI 22.4
[2018-12-03 13:26] LABS: ANISOCYTOSIS 1+; HELMET CELLS 1+; MACROCYTOSIS 0; OVALOCYTE 1+; PLATELET ESTIMATE NORMAL
--- NOTE | 2018-12-03 15:25 | CON.ID ---
Consult - History of Present Illness History of Present Illness: 73 y.o. female with PMH of COPD presents with c/o hematuria (? vaginal bleed) and lightheadedness. She states that she was recently admitted to [facility] for anemia and had been having mild hematuria prior to that. She received blood transfusions at the time but as per pt etiology of anemia was not found ? 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 Found to have UTI and sent home on oral antibiotics which she is not sure if she completed course of. She presented to the ER because she had suprapubic pressure and difficulty urinating before she noted blood clots in her urine. Noted to have mild hypotension (98/54 BP), minimal leukocytosis. She is afebrile,without current abd pain and reports mild hematuria still. She has no other complaints. - History Source History Provided By: Patient, Family Member Limitations to Obtaining History: No Limitations - Past Medical History Pulmonary: Yes: COPD ...: No - Alcohol/Substance Use Hx Alcohol Use: Yes (past) - Smoking History Smoking history: Former smoker Have you smoked in the past 12 months: No Aproximately how many cigarettes per day: 40 If you are a former smoker, when did you quit?: 15 years ago Home Medications - Allergies Allergies/Adverse Reactions: Allergies Allergy/AdvReac Type Severity Reaction Status Date / Time Penicillins Allergy Verified 12/01/18 19:09 shellfish derived Allergy Verified 12/01/18 14:30 - Home Medications Home Medications: Ambulatory Orders Albuterol Sulfate Inhaler - [Ventolin Hfa Inhaler -] 1 puff IH PRN 12/01/18 Ferrous Sulfate [Iron] 325 mg PO DAILY 12/01/18 Fluticasone Propionate [Flovent Diskus] 100 mcg IH PRN 12/01/18 Sennosides/Docusate Sodium [Senna-Docusate Sodium Tablet] 1 each PO PRN Review of Systems - Review of Systems Constitutional: reports: No Symptoms Eyes: reports: No Symptoms HENT: reports: No Symptoms Neck: reports: No Symptoms Cardiovascular: reports: No Symptoms Respiratory: reports: No Symptoms Gastrointestinal: reports: No Symptoms Genitourinary: reports: Hematuria Musculoskeletal: reports: No Symptoms Integumentary: reports: No Symptoms Neurological: reports: No Symptoms Endocrine: reports: No Symptoms Hematology/Lymphatic: reports: No Symptoms Psychiatric: reports: No Symptoms Physical Exam Vital Signs: Vital Signs Temperature 97.9 F 12/03/18 14:55 Pulse Rate 75 12/03/18 14:55 Respiratory Rate 18 12/03/18 14:55 Blood Pressure 107/57 L 12/03/18 14:55 O2 Sat by Pulse Oximetry (%) 99 12/03/18 09:00 Constitutional: Yes: No Distress, Calm Eyes: Yes: Conjunctiva Clear HENT: Yes: Atraumatic Neck: Yes: Supple Cardiovascular: Yes: Regular Rate and Rhythm Respiratory: Yes: CTA Bilaterally Gastrointestinal: Yes: Normal Bowel Sounds, Soft Renal/: Yes: Hematuria Integumentary: Yes: Other (healed vaginal ulcerations, no tenderness) Neurological: Yes: Alert, Oriented Labs: CBC, BMP 12/03/18 08:45 12/03/18 08:45 Laboratory Tests 12/01/18 12/01/18 12/01/18 15:32 15:32 15:32 WBC 10.2 H RBC 3.95 Hgb 9.8 L Hct 31.2 L MCV 79.1 L MCH 24.9 L MCHC 31.5 L RDW 20.2 H Plt Count 359 MPV 8.2 Absolute Neuts (auto) 6.7 Neutrophils % 65.7 Neutrophils % (Manual) Band Neutrophils % Lymphocytes % 23.5 Lymphocytes % (Manual) Monocytes % 6.3 Monocytes % (Manual) Eosinophils % 3.8 Eosinophils % (Manual) Basophils % 0.7 Basophils % (Manual) Myelocytes % (Man) Promyelocytes % (Man) Blast Cells % (Manual) Nucleated RBC % 0 Metamyelocytes Hypochromia Platelet Estimate Polychromasia Poikilocytosis Anisocytosis Microcytosis Macrocytosis Ovalocytes Helmet Cells PT with INR INR Sodium 138 Potassium 4.6 Chloride 106 Carbon Dioxide 25 Anion Gap 7 L BUN 23 H Creatinine 1.7 H Creat Clearance w eGFR 29.38 Random Glucose 93 Calcium 9.8 Phosphorus Magnesium Total Bilirubin 0.6 AST 16 ALT 11 L Alkaline Phosphatase 87 Total Protein 7.4 Albumin 2.9 L Urine Color Urine Appearance Urine pH Ur Specific [place] Urine Protein Urine Glucose (UA) Urine Ketones Urine Blood Urine Nitrite Urine Bilirubin Urine Urobilinogen Ur Leukocyte Esterase Urine WBC (Auto) Urine RBC (Auto) Blood Type O POSITIVE Antibody Screen Negative 12/01/18 12/01/18 12/01/18 15:32 15:32 21:40 WBC RBC Hgb Hct MCV MCH MCHC RDW Plt Count MPV Absolute Neuts (auto) Neutrophils % Neutrophils % (Manual) Band Neutrophils % Lymphocytes % Lymphocytes % (Manual) Monocytes % Monocytes % (Manual) Eosinophils % Eosinophils % (Manual) Basophils % Basophils % (Manual) Myelocytes % (Man) Promyelocytes % (Man) Blast Cells % (Manual) Nucleated RBC % Metamyelocytes Hypochromia Platelet Estimate Polychromasia Poikilocytosis Anisocytosis Microcytosis Macrocytosis Ovalocytes Helmet Cells PT with INR 14.40 H INR 1.22 H Sodium Potassium Chloride Carbon Dioxide Anion Gap BUN Creatinine Creat Clearance w eGFR Random Glucose Calcium Phosphorus Magnesium Total Bilirubin AST ALT Alkaline Phosphatase Total Protein Albumin Urine Color Red Red Urine Appearance Bloody Turbid Urine pH 6.5 7.5 Ur Specific [place] 1.015 1.013 Urine Protein 3+ H 2+ H Urine Glucose (UA) Negative Negative Urine Ketones 1+ H Negative Urine Blood 3+ H 3+ H Urine Nitrite Negative Negative Urine Bilirubin 3+ H Small Urine Urobilinogen 2.0 H 0.2 Ur Leukocyte Esterase 3+ H 3+ H Urine WBC (Auto) >100 1212.7 Urine RBC (Auto) >100 5207.9 Blood Type Antibody Screen 12/02/18 12/02/18 12/02/18 06:30 06:30 06:30 WBC 8.8 RBC 3.66 Hgb 9.1 L Hct 28.7 L MCV 78.5 L MCH 24.8 L MCHC 31.6 L RDW 20.4 H Plt Count 335 MPV 8.0 Absolute Neuts (auto) Neutrophils % No Result Required. Neutrophils % (Manual) 75.8 Band Neutrophils % 0.0 Lymphocytes % No Result Required. Lymphocytes % (Manual) 13.1 Monocytes % Monocytes % (Manual) 4 Eosinophils % Eosinophils % (Manual) 6.1 H Basophils % Basophils % (Manual) 1.0 Myelocytes % (Man) 0 Promyelocytes % (Man) 0 Blast Cells % (Manual) 0 Nucleated RBC % 0 Metamyelocytes 0 Hypochromia 1+ Platelet Estimate Normal Polychromasia 1+ Poikilocytosis 1+ Anisocytosis 1+ Microcytosis 1+ Macrocytosis 0 Ovalocytes Helmet Cells PT with INR INR Sodium 142 Potassium 4.5 Chloride 112 H Carbon Dioxide 24 Anion Gap 6 L BUN 17 Creatinine 1.6 H Creat Clearance w eGFR 31.51 Random Glucose 81 Calcium 8.3 L Phosphorus 2.4 L Magnesium 2.3 Total Bilirubin AST ALT Alkaline Phosphatase Total Protein Albumin Urine Color Urine Appearance Urine pH Ur Specific [place] Urine Protein Urine Glucose (UA) Urine Ketones Urine Blood Urine Nitrite Urine Bilirubin Urine Urobilinogen Ur Leukocyte Esterase Urine WBC (Auto) Urine RBC (Auto) Blood Type O POSITIVE Antibody Screen 12/03/18 12/03/18 08:45 08:45 WBC 10.4 H RBC 3.85 Hgb 9.8 L Hct 30.7 L MCV 79.6 L MCH 25.4 L MCHC 31.9 L RDW 20.9 H Plt Count 331 MPV 8.2 Absolute Neuts (auto) 6.7 Neutrophils % 64.4 Neutrophils % (Manual) Band Neutrophils % Lymphocytes % 23.5 Lymphocytes % (Manual) Monocytes % 5.6 Monocytes % (Manual) Eosinophils % 5.8 H Eosinophils % (Manual) Basophils % 0.7 Basophils % (Manual) Myelocytes % (Man) Promyelocytes % (Man) Blast Cells % (Manual) Nucleated RBC % 0 Metamyelocytes Hypochromia 1+ Platelet Estimate Normal Polychromasia 1+ Poikilocytosis 1+ Anisocytosis 1+ Microcytosis 1+ Macrocytosis 0 Ovalocytes 1+ Helmet Cells 1+ PT with INR INR Sodium 139 Potassium 4.8 Chloride 111 H Carbon Dioxide 23 Anion Gap 5 L BUN 13 Creatinine 1.4 H Creat Clearance w eGFR 36.76 Random Glucose 97 Calcium 9.4 Phosphorus Magnesium Total Bilirubin AST ALT Alkaline Phosphatase Total Protein Albumin Urine Color Urine Appearance Urine pH Ur Specific [place] Urine Protein Urine Glucose (UA) Urine Ketones Urine Blood Urine Nitrite Urine Bilirubin Urine Urobilinogen Ur Leukocyte Esterase Urine WBC (Auto) Urine RBC (Auto) Blood Type Antibody Screen Imaging - Results Cat Scan: Report Reviewed Ultrasound: Report Reviewed Problem List - Problems (1) Anemia Code(s): D64.9 - ANEMIA, UNSPECIFIED (2) Hematuria Code(s): R31.9 - HEMATURIA, UNSPECIFIED (3) Hypotension Code(s): I95.9 - HYPOTENSION, UNSPECIFIED (4) Lightheadedness Code(s): R42 - DIZZINESS AND GIDDINESS Assessment/Plan 73 y.o. female with PMH of COPD, former smoker, presenting with hematuria, lightheadedness, hypotension. S/P recent hospitalization for anemia requiring blood transfusions, treated for genital herpes, dx'd with UTI and d/c on po antibiotics Hematuria UTI Hypotension Lightheadedness Anemia -- still some mild hematuria, evaluation -- Hgb/Hct stable -- u/a suggestive of UTI, pt is PCN allergic and possible was taking cipro at home ? -- will restart bactrim for now, f/u urine culture results -- vaginal ulcerations healed, no current vaginal bleed noted Pt is afebrile, stable at this time Will follow Thank you
[2018-12-03] MEDS: SULFAMETHOXAZOLE/TRIMETHOPRIM 400MG/80MG S.S. TABLET PO SCH (17:36)
[2018-12-03] MEDS ORDERED: SULFAMETHOXAZOLE/TRIMETHOPRIM 400MG/80MG S.S. TABLET PO SCH (18:00)
[2018-12-04] MEDS: ACETAMINOPHEN 325 MG TABLET (FP) PO PRN ×2 (01:56→06:25)
[2018-12-04] MEDS: FERROUS SO4 325 MG TABLET (FP) PO SCH ×2 (08:15→17:01)
[2018-12-04] MEDS ORDERED: PT OWN MED DRAWER 7, Y5N ONE ×2 (09:41→22:12)
[2018-12-04] MEDS: ENOXAPARIN NA (PORCINE) 30 MG/0.3 ML DISP.SYRIN SQ SCH (09:42)
[2018-12-04] MEDS: SULFAMETHOXAZOLE/TRIMETHOPRIM 400MG/80MG S.S. TABLET PO SCH ×2 (09:42→22:13)
--- NOTE | 2018-12-04 10:38 | EKG ---
Test Reason : Blood Pressure : / mmHG Vent. Rate : 076 BPM Atrial Rate : 076 BPM P-R Int : 158 ms QRS Dur : 090 ms QT Int : 380 ms P-R-T Axes : 071 065 071 degrees QTc Int : 427 ms NORMAL SINUS RHYTHM NORMAL ECG NO PREVIOUS ECGS AVAILABLE Confirmed by LUCIANO SHAH MD ([id number]) on 12/04/2018 10:38:07 AM Referred By: Confirmed By:LUCIANO SHAH MD
--- NOTE | 2018-12-04 11:30 | PN ---
Progress Note, Physician Chief Complaint: Still c/o hematuria - Current Medication List Current Medications: Active Medications Acetaminophen (Tylenol -) 650 mg PO Q4H PRN PRN Reason: PAIN Last Admin: 12/04/18 06:25 Dose: 650 mg Albuterol Sulfate (Ventolin Hfa Inhaler -) 1 puff IH Q4H PRN PRN Reason: SHORTNESS OF BREATH/WHEEZING Enoxaparin Sodium (Lovenox -) 30 mg SQ DAILY [facility] Last Admin: 12/04/18 09:42 Dose: 30 mg Ferrous Sulfate (Feosol -) 325 mg PO BIDWM [facility] Last Admin: 12/04/18 08:15 Dose: 325 mg Senna/Docusate Sodium (Pericolace -) 1 tablet PO HS PRN PRN Reason: CONSTIPATION Last Admin: 12/03/18 21:32 Dose: 1 tablet Trimethoprim/Sulfamethoxazole (Bactrim Single Strength -) 1 each PO BID [facility] Last Admin: 12/04/18 09:42 Dose: 1 each - Objective Vital Signs: Vital Signs Temperature 97.7 F 12/04/18 09:00 Pulse Rate 103 H 12/04/18 09:00 Respiratory Rate 20 12/04/18 09:00 Blood Pressure 94/69 12/04/18 09:00 O2 Sat by Pulse Oximetry (%) 97 12/03/18 21:00 Elderly F comfortable not in acute distress HEENT: Mild anemia, hemodynamically stab; NECK: No JVd No Bruit CHEST: CTA B/L CVS: s1S2 R no m/g/r ABD: No distention, non tender Bs + EXT; No edema feet, pulses + RN REHAB: [facility] non focal Labs: CBC, BMP 12/03/18 08:45 12/03/18 08:45 INR, PTT INR 1.22 (0.83-1.09) H 12/01/18 15:32 Problem List - Problems (1) Hematuria Assessment/Plan: recurrent hematuria, evaluated by the ID, U culture -ve will cont Bactrim, ultrasound shows cortical cysts, awaiting evaluation by the Code(s): R31.9 - HEMATURIA, UNSPECIFIED (2) Anemia Assessment/Plan: Stable FAVIAN on PO Iron, recently worked up at [facility], as per family at [facility] recived 3 unit PRBC never had colonoscopy or EGD. Code(s): D64.9 - ANEMIA, UNSPECIFIED (3) Hypotension Assessment/Plan: Resolved due to dehydration Code(s): I95.9 - HYPOTENSION, UNSPECIFIED (4) CKD (chronic kidney disease) stage 3, GFR 30-59 ml/min Assessment/Plan: Stable Code(s): N18.3 - CHRONIC KIDNEY DISEASE, STAGE 3 (MODERATE) (5) Lung mass Assessment/Plan: As per daughter underwent extensive w/u at [facility] including Biopsy around 6 months ago. Code(s): R91.8 - OTHER NONSPECIFIC ABNORMAL FINDING OF LUNG FIELD
[2018-12-05 07:19] LABS: ANION GAP 5 MMOL/L (8-16); BLOOD UREA NITROGEN 14 mg/dL (7-18); CALCIUM 9.8 mg/dL (8.5-10.1); CHLORIDE 108 mmol/L (98-107); CO2 24 mmol/L (21-32); CREATININE 1.5 mg/dL (0.55-1.3); GLUCOSE,RANDOM 80 mg/dL (74-106); POTASSIUM 5.3 mmol/L (3.5-5.1); SODIUM 137 mmol/L (136-145)
[2018-12-05 07:22] LABS: HEMATOCRIT 28.5 % (32.4-45.2); HEMOGLOBIN 9.5 GM/dL (10.7-15.3); MCH 26.1 pg (25.7-33.7); MCHC 33.4 g/dl (32.0-36.0); MEAN CELL VOLUME 78.3 fl (80-96); MEAN PLT VOLUME 8.5 fl (7.5-11.1); PLATELET COUNT 357 K/MM3 (134-434); RBC 3.64 M/mm3 (3.60-5.2); RDW 21.1 % (11.6-15.6); WHITE BLOOD COUNT 9.1 K/mm3 (4.0-10.0)
[2018-12-05] MEDS: FERROUS SO4 325 MG TABLET (FP) PO SCH ×2 (07:59→17:18)
--- NOTE | 2018-12-05 09:06 | CON.GU ---
Consult - History of Present Illness History of Present Illness: 73 yo female with h/o recurrent UTI, admitted with gross hematuria w clots, urine has now cleared with antibiotics, No flank pain. NCCT with bladder wall thickening - Past Medical History Pulmonary: Yes: COPD ...: No - Alcohol/Substance Use Hx Alcohol Use: Yes (past) - Smoking History Smoking history: Former smoker Have you smoked in the past 12 months: No Aproximately how many cigarettes per day: 40 If you are a former smoker, when did you quit?: 15 years ago Home Medications - Allergies Allergies/Adverse Reactions: Allergies Allergy/AdvReac Type Severity Reaction Status Date / Time Penicillins Allergy Verified 12/01/18 19:09 shellfish derived Allergy Verified 12/01/18 14:30 - Home Medications Home Medications: Ambulatory Orders Albuterol Sulfate Inhaler - [Ventolin HFA Inhaler -] 1 puff IH PRN 12/01/18 Ferrous Sulfate [Iron] 325 mg PO DAILY 12/01/18 Fluticasone Propionate [Flovent Diskus] 100 mcg IH PRN 12/01/18 Sennosides/Docusate Sodium [Senna-Docusate Sodium Tablet] 1 each PO PRN Sulfamethoxazole/Trimethoprim [Bactrim SS -] 1 each PO BID #10 tablet 12/04/18 Review of Systems - Review of Systems Genitourinary: reports: Hematuria Physical Exam- Vital Signs: Vital Signs Temperature 98.3 F 12/05/18 06:00 Pulse Rate 103 H 12/05/18 06:00 Respiratory Rate 18 12/05/18 06:00 Blood Pressure 98/55 L 12/05/18 06:00 O2 Sat by Pulse Oximetry (%) 97 12/03/18 21:00 Labs: CBC, BMP 12/05/18 06:00 12/05/18 06:00 Imaging - Results Cat Scan: Report Reviewed Problem List - Problems (1) Hematuria Assessment/Plan: hematuria likely secondary to uti, now urine clear. complete abx course. Pt needs cystoscopy as outpt-please have pt make appt. She understands the importance of this to r/o bladder malignancy Code(s): R31.9 - HEMATURIA, UNSPECIFIED
[2018-12-05] MEDS ORDERED: PT OWN MED DRAWER 7, Y5N ONE ×2 (09:19→21:29)
[2018-12-05] MEDS: SULFAMETHOXAZOLE/TRIMETHOPRIM 400MG/80MG S.S. TABLET PO SCH ×2 (09:21→21:31)
[2018-12-05] MEDS: ENOXAPARIN NA (PORCINE) 30 MG/0.3 ML DISP.SYRIN SQ SCH (09:21)
[2018-12-05] MEDS ORDERED: SODIUM POLYSTYRENE SULFONATE 15 GM/60 ML BOTTLE PO ONE (11:29)
--- NOTE | 2018-12-05 11:51 | PN ---
Physical Exam: SUBJECTIVE: Patient seen and examined in the afternoon. late this morning, patient was sitting in her chair, in no acute distress eating a meal. no further hematuria per patient @ apx 4pm today, patient had a toilet full of bring red clots seen in the toilet bowl by speech writer. will do a stat cbc. her only compliant is constipation. she denies any dizziness or shortness of breath. OBJECTIVE: bright red hematuria after urination, stat cbc spoke to patients daughter and updated her on poc stop lovenox Vital Signs Period Temp Pulse Resp BP Sys/Palma Pulse Ox Last 24 Hr 97.8 F-98.3 F 103-108 18-20 98-101/55-62 GENERAL: The patient is awake, alert, and fully oriented, in no acute distress. HEAD: Normal with no signs of trauma. EYES: PERRL, extraocular movements intact, sclera anicteric, conjunctiva clear. No ptosis. ENT: Ears normal, nares patent, oropharynx clear without exudates, moist mucous membranes. NECK: Trachea midline, full range of motion, supple. LUNGS: Breath sounds equal, clear to auscultation bilaterally, no wheezes, no crackles HEART: Regular rate and rhythm ABDOMEN: Soft, nontender, nondistended, normoactive bowel sounds, no guarding EXTREMITIES: 2+ pulses, warm, well-perfused, no edema. NEUROLOGICAL: Normal speech, gait steady PSYCH: Normal mood, normal affect. SKIN: Warm, dry, normal turgor, no rashes or lesions noted Laboratory Results - last 24 hr 12/05/18 12/05/18 06:00 06:00 WBC 9.1 RBC 3.64 Hgb 9.5 L Hct 28.5 L MCV 78.3 L MCH 26.1 MCHC 33.4 RDW 21.1 H Plt Count 357 MPV 8.5 Neutrophils % No Result Required. Lymphocytes % No Result Required. Nucleated RBC % 0 Sodium 137 Potassium 5.3 H Chloride 108 H Carbon Dioxide 24 Anion Gap 5 L BUN 14 Creatinine 1.5 H Creat Clearance w eGFR 33.94 Random Glucose 80 Calcium 9.8 Active Medications Generic Name Dose Route Start Last Admin Trade Name Freq PRN Reason Stop Dose Admin Acetaminophen 650 mg 12/01/18 19:55 12/04/18 06:25 Tylenol - PO 650 mg Q4H PRN Administration PAIN Albuterol Sulfate 1 puff 12/01/18 20:00 Ventolin Hfa Inhaler - IH Q4H PRN SHORTNESS OF BREATH/WHEEZING Enoxaparin Sodium 30 mg 12/03/18 11:00 12/05/18 09:21 Lovenox - SQ 30 mg DAILY BEBETO Administration Ferrous Sulfate 325 mg 12/03/18 11:00 12/05/18 07:59 Feosol - PO 325 mg BIDWM BEBETO Administration Senna/Docusate Sodium 1 tablet 12/01/18 22:00 12/03/18 21:32 Pericolace - PO 1 tablet HS PRN Administration CONSTIPATION Trimethoprim/Sulfamethoxazole 1 each 12/03/18 17:45 12/05/18 09:21 Bactrim Single Strength - PO 1 each BID BEBETO Administration ASSESSMENT/PLAN: Patient is a 73 year old female with a past medical history of COPD, 40 pack yr smoker quit 15 yr ago, who presents due to dizziness, suprapubic pain and heavy vaginal bleeding x 3 days. The hematuria and clots started 3 days prior to admission with pelvic pain and pressure is relieved by urination and passing several large blood clots. Hospitalized at [facility] 6 days ago for UTI and found to have anemia of unknown source (no hematuria or vaginal bleeding at that time) , required 3 transfusions for Hgb 6; was dcd with hgb 10. reports lack of appetite and unintentional 10 b weight loss over 2 mo, as well as low grade fevers and malaise. Patient had history of UTIs, for which she was at [facility] several times in the past. : Hematuria. had another episode of brb after urination. Recurrent hematuria, hmg/hct low stable on a.m. labs. will repeat cbc now Patient seen by ID and Bactrim started. Ultrasound showed cortical cysts. Seen by and a outpatient cystoscopy recommended. Heme Blood loss anemia On PO iron. per notes, patient was worked up at [facility] and received 3 units of prbc. No colonoscopy or EGD. Renal: CKD, stage 3 Monitor intake and output Pulm Lung mass. Patient had outpatient biopsy at [facility]. Will need to follow up as outpatient COPD. no acute issues, tolerating room air. fen tolerating po monitor electrolytes low salt diet prophy stop lovenox, patient ambulatory. SCDS when in bed. full code Visit type - Emergency Visit Emergency Visit: Yes ED Registration Date: 12/01/18 Care time: The patient presented to the Emergency Department on the above date and was hospitalized for further evaluation of their emergent condition. - New Patient This patient is new to me today: Yes Date on this admission: 12/05/18 - Critical Care Critical Care patient: No
[2018-12-05 12:00] LABS: ANISOCYTOSIS 2+; MACROCYTOSIS 0; OVALOCYTE 1+; PLATELET ESTIMATE NORMAL; TARGET CELLS 1+; TEAR DROP CELLS 2+
[2018-12-05] MEDS ORDERED: BISACODYL 5 MG TABLET.DR (FP) PO ONE (15:43)
[2018-12-05] MEDS ORDERED: BISACODYL 10 MG SUPP.RECT PR ONE (16:13)
[2018-12-05 18:39] LABS: BASO % 0.9 % (0-2.0); EOS % 4.4 % (0-4.5); HEMATOCRIT 31.4 % (32.4-45.2); HEMOGLOBIN 9.9 GM/dL (10.7-15.3); LYMPH % 24.4 % (8-40); MCH 25.2 pg (25.7-33.7); MCHC 31.5 g/dl (32.0-36.0); MEAN PLT VOLUME 8.5 fl (7.5-11.1); MONO % 5.2 % (3.8-10.2); NEUT % 65.1 % (42.8-82.8); PLATELET COUNT 395 K/MM3 (134-434); RBC 3.93 M/mm3 (3.60-5.2); RDW 21.3 % (11.6-15.6); WHITE BLOOD COUNT 14.1 K/mm3 (4.0-10.0)
[2018-12-06] MEDS: FERROUS SO4 325 MG TABLET (FP) PO SCH ×2 (08:41→17:08)
[2018-12-06] MEDS ORDERED: PT OWN MED DRAWER 7, Y5N ONE ×2 (09:20→20:50)
[2018-12-06] MEDS: SULFAMETHOXAZOLE/TRIMETHOPRIM 400MG/80MG S.S. TABLET PO SCH ×2 (09:21→21:16)
[2018-12-06 09:40] LABS: HEMATOCRIT 31.8 % (32.4-45.2); HEMOGLOBIN 10.1 GM/dL (10.7-15.3); MCH 25.2 pg (25.7-33.7); MCHC 31.7 g/dl (32.0-36.0); MEAN CELL VOLUME 79.4 fl (80-96); MEAN PLT VOLUME 8.4 fl (7.5-11.1); PLATELET COUNT 413 K/MM3 (134-434); RBC 4.01 M/mm3 (3.60-5.2); RDW 20.9 % (11.6-15.6); WHITE BLOOD COUNT 10.6 K/mm3 (4.0-10.0)
[2018-12-06 10:05] LABS: ALK PHOS 91 U/L (45-117); ANION GAP 6 MMOL/L (8-16); BILIRUBIN,TOTAL 0.4 mg/dL (0.2-1); BLOOD UREA NITROGEN 20 mg/dL (7-18); CALCIUM 10.4 mg/dL (8.5-10.1); CHLORIDE 106 mmol/L (98-107); CO2 26 mmol/L (21-32); CREATININE 1.8 mg/dL (0.55-1.3); GLUCOSE,RANDOM 87 mg/dL (74-106); POTASSIUM 4.3 mmol/L (3.5-5.1); SGOT/AST 13 U/L (15-37); SGPT/ALT 15 U/L (13-61); SODIUM 137 mmol/L (136-145); TOT PROT 7.7 g/dl (6.4-8.2)
[2018-12-06] MEDS ORDERED: SODIUM CHLORIDE 250 ML IV STA (12:16)
--- NOTE | 2018-12-06 12:17 | PN ---
Physical Exam: SUBJECTIVE: Patient seen and examined at the bedside. no further bleeding. denies dizziness or chest pain. OBJECTIVE: Called Dr. Newsome office and made follow up appt for patient on December 13 at 4:15pm with Dr. Hayes for cystoscopy. Daughter made aware patient is hypotensive today, clinically appears dry. she is asymptomatic. given 250cc fluid bolus. and will gently hydrate overnight. monitor bp, encourage adequate PO intake. Vital Signs Period Temp Pulse Resp BP Sys/Palma Pulse Ox Last 24 Hr 97.2 F-99.5 F 86-107 18-20 80-135/56-75 GENERAL: The patient is awake, alert, and fully oriented, in no acute distress. HEAD: Normal with no signs of trauma. EYES: PERRL, extraocular movements intact, sclera anicteric, conjunctiva clear. No ptosis. ENT: Ears normal, nares patent, oropharynx clear without exudates, moist mucous membranes. NECK: Trachea midline, full range of motion, supple. LUNGS: Breath sounds equal, clear to auscultation bilaterally, no wheezes, no crackles HEART: Regular rate and rhythm ABDOMEN: Soft, nontender, nondistended, normoactive bowel sounds, no guarding EXTREMITIES: 2+ pulses, warm, well-perfused, no edema. NEUROLOGICAL: Normal speech, gait steady PSYCH: Normal mood, normal affect. SKIN: Warm, dry, normal turgor, no rashes or lesions noted Laboratory Results - last 24 hr 12/05/18 12/05/18 12/05/18 06:00 14:30 18:30 WBC 14.1 H RBC 3.93 Hgb 9.9 L Hct 31.4 L MCV 80.0 MCH 25.2 L MCHC 31.5 L RDW 21.3 H Plt Count 395 MPV 8.5 Absolute Neuts (auto) 9.1 H Neutrophils % 65.1 Neutrophils % (Manual) 74.8 Band Neutrophils % 0.0 Lymphocytes % 24.4 Lymphocytes % (Manual) 15.2 Monocytes % 5.2 Monocytes % (Manual) 2 L Eosinophils % 4.4 Eosinophils % (Manual) 4.0 Basophils % 0.9 Basophils % (Manual) 0.0 Myelocytes % (Man) 0 Promyelocytes % (Man) 0 Blast Cells % (Manual) 0 Nucleated RBC % 0 Metamyelocytes 0 Hypochromia 0 Platelet Estimate Normal Platelet Comment Present Polychromasia 2+ Poikilocytosis 2+ Anisocytosis 2+ Microcytosis 0 Macrocytosis 0 Spherocytes 2+ Target Cells 1+ Tear Drop Cells 2+ Ovalocytes 1+ Abraham Cells 1+ Acanthocytes (Spur) 1+ Sodium Potassium 4.7 Chloride Carbon Dioxide Anion Gap BUN Creatinine Creat Clearance w eGFR Random Glucose Calcium Total Bilirubin AST ALT Alkaline Phosphatase Total Protein Albumin 12/06/18 12/06/18 09:10 09:10 WBC 10.6 H RBC 4.01 Hgb 10.1 L Hct 31.8 L MCV 79.4 L MCH 25.2 L MCHC 31.7 L RDW 20.9 H Plt Count 413 MPV 8.4 Absolute Neuts (auto) Neutrophils % Neutrophils % (Manual) Band Neutrophils % Lymphocytes % Lymphocytes % (Manual) Monocytes % Monocytes % (Manual) Eosinophils % Eosinophils % (Manual) Basophils % Basophils % (Manual) Myelocytes % (Man) Promyelocytes % (Man) Blast Cells % (Manual) Nucleated RBC % Metamyelocytes Hypochromia Platelet Estimate Platelet Comment Polychromasia Poikilocytosis Anisocytosis Microcytosis Macrocytosis Spherocytes Target Cells Tear Drop Cells Ovalocytes [place] Cells Acanthocytes (Spur) Sodium 137 Potassium 4.3 Chloride 106 Carbon Dioxide 26 Anion Gap 6 L BUN 20 H Creatinine 1.8 H Creat Clearance w eGFR 27.50 Random Glucose 87 Calcium 10.4 H Total Bilirubin 0.4 AST 13 L ALT 15 Alkaline Phosphatase 91 Total Protein 7.7 Albumin 3.0 L Active Medications Generic Name Dose Route Start Last Admin Trade Name Deep PRN Reason Stop Dose Admin Acetaminophen 650 mg 12/01/18 19:55 12/04/18 06:25 Tylenol - PO 650 mg Q4H PRN Administration PAIN Albuterol Sulfate 1 puff 12/01/18 20:00 Ventolin Hfa Inhaler - IH Q4H PRN SHORTNESS OF BREATH/WHEEZING Ferrous Sulfate 325 mg 12/03/18 11:00 12/06/18 08:41 Feosol - PO 325 mg BIDWM BEBETO Administration Senna/Docusate Sodium 1 tablet 12/01/18 22:00 12/03/18 21:32 Pericolace - PO 1 tablet HS PRN Administration CONSTIPATION Trimethoprim/Sulfamethoxazole 1 each 12/03/18 17:45 12/06/18 09:21 Bactrim Single Strength - PO 1 each BID BEBETO Administration ASSESSMENT/PLAN: Patient is a 73 year old female with a past medical history of COPD, 40 pack yr smoker quit 15 yr ago, who presents due to dizziness, suprapubic pain and heavy vaginal bleeding x 3 days. The hematuria and clots started 3 days prior to admission with pelvic pain and pressure is relieved by urination and passing several large blood clots. Hospitalized at [facility] 6 days ago for UTI and found to have anemia of unknown source (no hematuria or vaginal bleeding at that time) , required 3 transfusions for Hgb 6; was dcd with hgb 10. reports lack of appetite and unintentional 10 b weight loss over 2 mo, as well as low grade fevers and malaise. Patient had history of UTIs, for which she was at [facility] several times in the past. : Hematuria. had two episodes of hematuira yesterday, none overnight nor today, but will continue to monitor. Patient will need cystoscopy as an outpatient. I called Dr. Busby's office and made appointment for December 13 for cystoscopy. Daughter aware and in agreement to take her mother for this appt. Hmg/hct stable. Patient seen by ID and Bactrim started for possible UTI. Heme Blood loss anemia On PO iron. per notes, patient was worked up at [facility] and received 3 units of prbc. No colonoscopy or EGD done per daughter. hmg/hct stable, will repeat labs in a.m. Renal: CKD, stage 3 Monitor intake and output Pulm Lung mass. Patient had outpatient biopsy at [facility]. Will need to follow up as outpatient COPD. no acute issues, tolerating room air. fen tolerating po monitor electrolytes low salt diet prophy stop lovenox, patient ambulatory. SCDS when in bed. full code Visit type - Emergency Visit Emergency Visit: Yes ED Registration Date: 12/01/18 Care time: The patient presented to the Emergency Department on the above date and was hospitalized for further evaluation of their emergent condition. - New Patient This patient is new to me today: No - Critical Care Critical Care patient: No - Discharge Referral Referred to [facility] No
[2018-12-06] MEDS ORDERED: SODIUM CHLORIDE 1,000 ML IV SCH ×2 (13:15→17:45)
[2018-12-07] MEDS: FERROUS SO4 325 MG TABLET (FP) PO SCH ×2 (08:34→17:09)
[2018-12-07] MEDS: SULFAMETHOXAZOLE/TRIMETHOPRIM 400MG/80MG S.S. TABLET PO SCH (09:41)
[2018-12-07 09:46] LABS: BASO % 0.6 % (0-2.0); EOS % 4.4 % (0-4.5); HEMATOCRIT 27.5 % (32.4-45.2); HEMOGLOBIN 8.9 GM/dL (10.7-15.3); LYMPH % 24.5 % (8-40); MCH 25.7 pg (25.7-33.7); MCHC 32.5 g/dl (32.0-36.0); MEAN CELL VOLUME 79.1 fl (80-96); MEAN PLT VOLUME 8.6 fl (7.5-11.1); MONO % 8.9 % (3.8-10.2); NEUT % 61.6 % (42.8-82.8); PLATELET COUNT 339 K/MM3 (134-434); RBC 3.47 M/mm3 (3.60-5.2); RDW 21.7 % (11.6-15.6); WHITE BLOOD COUNT 9.4 K/mm3 (4.0-10.0)
[2018-12-07 10:14] LABS: ALK PHOS 85 U/L (45-117); ANION GAP 7 MMOL/L (8-16); BILIRUBIN,TOTAL 0.3 mg/dL (0.2-1); BLOOD UREA NITROGEN 23 mg/dL (7-18); CALCIUM 9.7 mg/dL (8.5-10.1); CHLORIDE 103 mmol/L (98-107); CO2 26 mmol/L (21-32); CREATININE 1.5 mg/dL (0.55-1.3); GLUCOSE,RANDOM 68 mg/dL (74-106); POTASSIUM 4.8 mmol/L (3.5-5.1); SGOT/AST 17 U/L (15-37); SGPT/ALT 13 U/L (13-61); SODIUM 135 mmol/L (136-145); TOT PROT 7.1 g/dl (6.4-8.2)
[2018-12-07 12:02] LABS: ANISOCYTOSIS 0; MACROCYTOSIS 0; PLATELET ESTIMATE NORMAL
--- NOTE | 2018-12-07 13:23 | DS ---
Physical Exam: SUBJECTIVE: Patient seen and examined at the bedside. no further hematuria. OBJECTIVE: Called Dr. Newsome office and made follow up appt for patient on December 13 at 4:15pm with Dr. Hayes for cystoscopy. Daughter made aware and in agreement to take her mother for this appointment. BP and creatinine improved with IVF. encourage adequate PO intake on discharge. Vital Signs Period Temp Pulse Resp BP Sys/Palma Pulse Ox Last 24 Hr 97.9 F-98.2 F 82-99 20-20 90-106/49-63 95 PHYSICAL EXAM GENERAL: The patient is awake, alert, and fully oriented, in no acute distress. HEAD: Normal with no signs of trauma. EYES: PERRL, extraocular movements intact, sclera anicteric, conjunctiva clear. No ptosis. ENT: Ears normal, nares patent, oropharynx clear without exudates, moist mucous membranes. NECK: Trachea midline, full range of motion, supple. LUNGS: Breath sounds equal, clear to auscultation bilaterally, no wheezes, no crackles HEART: Regular rate and rhythm ABDOMEN: Soft, nontender, nondistended, normoactive bowel sounds, no guarding EXTREMITIES: 2+ pulses, warm, well-perfused, no edema. NEUROLOGICAL: Normal speech, gait steady PSYCH: Normal mood, normal affect. SKIN: Warm, dry, normal turgor, no rashes or lesions noted LABS Laboratory Results - last 24 hr 12/07/18 12/07/18 09:34 09:34 WBC 9.4 RBC 3.47 L Hgb 8.9 L Hct 27.5 L MCV 79.1 L MCH 25.7 MCHC 32.5 RDW 21.7 H Plt Count 339 MPV 8.6 Absolute Neuts (auto) 5.8 Neutrophils % 61.6 Lymphocytes % 24.5 Monocytes % 8.9 Eosinophils % 4.4 Basophils % 0.6 Nucleated RBC % 0 Hypochromia 0 Platelet Estimate Normal Platelet Comment Present Polychromasia 0 Poikilocytosis 1+ Anisocytosis 0 Microcytosis 0 Macrocytosis 0 Stomatocytes 1+ Schistocytes 1+ Sodium 135 L Potassium 4.8 Chloride 103 Carbon Dioxide 26 Anion Gap 7 L BUN 23 H Creatinine 1.5 H Creat Clearance w eGFR 33.94 Random Glucose 68 L Calcium 9.7 Total Bilirubin 0.3 AST 17 ALT 13 Alkaline Phosphatase 85 Total Protein 7.1 Albumin 3.0 L HOSPITAL COURSE: Date of Admission:12/01/18 Date of Discharge: 12/07/18 ADMISSION NOTE: This is a 73 yo F with PMH of COPD, 40 pack yr smoker quit 15 yr ago, who presents due to dizziness, suprapubic pain and heavy vaginal bleeding x 1d. pelvic pain and pressure is relieved by urination, passing several large blood clots. Hospitalized at [facility] a week ago for UTI and found to have anemia of unknown source (no hematuria or vaginal bleeding at that time), required 3 transfusions for Hgb 6; was dcd with hgb 10. reports lack of appetite and unintentional 10 b weight loss over 2 mo, as well as low grade fevers and malaise. Patient had history of UTIs, for which she was at [facility] several times in the past, including last admission. was first told she has mild anemia in August this yr and first told she has elevated creat 6 d ago. Denies h/a, cp, cough, sob, n/n, diarrhea constipation, melena, hematochezia, dysuria, flank pain. ER course was notable for: (1) bladder US (2)bactrim, NS Hospital course by problem list: : Hematuria. had two episodes of hematuria on 12/05/18, none since. Seen by urology during hospitalization and recommended cystoscopy as an outpatient. I called Dr. Busby's office and made appointment for December 13 @ 4:15 for cystoscopy. Daughter aware and in agreement to take her mother for this appt. Hmg/hct stable. Patient seen by ID and Bactrim BID started for possible UTI. Heme Blood loss anemia in the setting of hematuria On PO iron. per notes, patient was worked up at [facility] and received 3 units of prbc. No colonoscopy or EGD done per daughter. hmg/hct low stable Renal: CKD, stage 3 Monitor intake and output Pulm Lung mass. Patient had outpatient biopsy at [facility]. Will need to follow up as outpatient COPD. no acute issues, tolerating room air. DISCHARGE PLAN: Discharge home to her family with urology follow up for scheduled cystoscopy on December 13. Minutes to complete discharge: 60 Discharge Summary Reason For Visit: HEMATURIA,LIGHTHEADEDNESS,HYPOTENSION Current Active Problems Anemia (Acute) CKD (chronic kidney disease) stage 3, GFR 30-59 ml/min (Acute) Hematuria (Acute) Hypotension (Acute) Lightheadedness (Acute) Lung mass (Acute) Condition: Stable - Instructions Diet, Activity, Other Instructions: Mrs Thompson: You were admitted for urine in your blood. You were seen by the urologist during your stay and he has determined that you will need a cystoscopy. We have made an appointment for you to follow up with Dr. Hayes on December 13 at December 13 at 4:15pm with Dr. Hayes for cystoscopy. Please call your primary care doctor before this appointment with Dr. Busby to make sure a referral is made through your insurance. Here are our recommendations: Hematuria/UTI. You will need a cystoscopy as an outpatient for December 13 at 4:15pm with Dr. Gamez. Continue the Bactrim to complete a 10 day course (you will need 5 more days - continue the Bactrim twice per day at 8am and 8pm until 12/12/2018, then stop). This medication has been called into your pharmacy. Please drink adequate water every day, we recommend that you drink at least 6-8 glasses of water daily. Please call me with any questions that you may have. Liza Vale [employer] [facility] [phone] Referrals: Alo Gamez MD [Staff Physician] - (December 13 at 4:15pm with Dr. Hayes for cystoscopy. ) Disposition: HOME - Home Medications Comprehensive Discharge Medication List: Ambulatory Orders Albuterol Sulfate Inhaler - [Ventolin HFA Inhaler -] 1 puff IH PRN 12/01/18 Ferrous Sulfate [Iron] 325 mg PO DAILY 12/01/18 Fluticasone Propionate [Flovent Diskus] 100 mcg IH PRN 12/01/18 Sennosides/Docusate Sodium [Senna-Docusate Sodium Tablet] 1 each PO PRN Sulfamethoxazole/Trimethoprim [Bactrim SS -] 1 each PO BID #10 tablet 12/07/18 This patient is new to me today: No Emergency Visit: Yes ED Registration Date: 12/01/18 Care time: The patient presented to the Emergency Department on the above date and was hospitalized for further evaluation of their emergent condition. Critical Care patient: No - Discharge Referral Referred to [facility] No
[2018-12-07 14:04] VITALS: BP 95/54; PULSE 76; TEMP 97.4
== END 2018-12-07 18:13 | disposition home or self-care (01) | DRG 690 ==
LOC: JER 14:11 → JERBED 19:19 → J6S 12-02 22:35
PROVIDERS: ADMIT Internal Medicine; ATTEND Nurse Practitioner Family
DX: N39.0 Urinary tract infection, site not specified (principal); E46 Unspecified protein-calorie malnutrition; N17.9 Acute kidney failure, unspecified; E88.09 Other disorders of plasma-protein metabolism, not elsewhere classified; N18.3 Chronic kidney disease, stage 3 (moderate); D50.0 Iron deficiency anemia secondary to blood loss (chronic); I95.9 Hypotension, unspecified; N93.9 Abnormal uterine and vaginal bleeding, unspecified; J44.9 Chronic obstructive pulmonary disease, unspecified; Z68.22 Body mass index [BMI] 22.0-22.9, adult; Z87.891 Personal history of nicotine dependence; Z88.0 Allergy status to penicillin; R31.0 Gross hematuria; R42 Dizziness and giddiness; D25.9 Leiomyoma of uterus, unspecified; K80.80 Other cholelithiasis without obstruction; A60.1 Herpesviral infection of perianal skin and rectum; D50.9 Iron deficiency anemia, unspecified; R91.8 Other nonspecific abnormal finding of lung field
CPT/HCPCS: 36415; 71045-TC-FY; 74176-TC; 76775-TC; 76856-TC; 80048; 80053; 81003; 83735; 84100; 84132; 85025; 85027; 85610; 86850; 86900; 86901; 87086; 93005; 93010; 97116-GP; 97161-GP; 99284-25; J7030

== ENCOUNTER 2019-08-16 16:19 | Inpatient (IN) | payer OTHER ==
--- NOTE | 2019-08-16 16:37 | PDOC ---
Rapid Medical Evaluation Time Seen by Provider: 08/16/19 16:33 Medical Evaluation: Allergies Allergy/AdvReac Type Severity Reaction Status Date / Time Penicillins Allergy Verified 12/01/18 19:09 shellfish derived Allergy Verified 12/01/18 14:30 08/16/19 16:34 I have performed a brief in-person evaluation of this patient. The patient presents with a chief complaint of: recent uti, on abx, now with passing blood with urination, rash to perineum, Pertinent physical exam findings: tachy, afebrile I have ordered the following: labs, ivf, urine, pelvic u/s The patient will proceed to the ED for further evaluation. Discharge Disposition - Diagnosis Urinary complications UTI (urinary tract infection) Qualifiers: Urinary tract infection type: site unspecified Hematuria presence: with hematuria Qualified Code(s): N39.0 - Urinary tract infection, site not specified - Discharge Dispostion Condition at time of disposition: Guarded - Referrals - Patient Instructions - Post Discharge Activity
[2019-08-16] MEDS ORDERED: SODIUM CHLORIDE 1,000 ML IV STA (16:38)
[2019-08-16 17:22] LABS: BASO % 0.8 % (0-2.0); EOS % 1.5 % (0-4.5); HEMOGLOBIN 10.4 GM/dL (10.7-15.3); LYMPH % 16.3 % (8-40); MCH 28.6 pg (25.7-33.7); MCHC 31.6 g/dl (32.0-36.0); MEAN CELL VOLUME 90.4 fl (80-96); MEAN PLT VOLUME 8.7 fl (7.5-11.1); MONO % 7.3 % (3.8-10.2); NEUT % 74.1 % (42.8-82.8); PLATELET COUNT 410 K/MM3 (134-434); RBC 3.66 M/mm3 (3.60-5.2); RDW 14.9 % (11.6-15.6); WHITE BLOOD COUNT 11.5 K/mm3 (4.0-10.0)
[2019-08-16 17:51] LABS: ALBUMIN 3.6 g/dl (3.4-5.0); BILIRUBIN,TOTAL 0.3 mg/dL (0.2-1); BLOOD UREA NITROGEN 24.5 mg/dL (7-18); CALCIUM 11.4 mg/dL (8.5-10.1); CREATININE 1.5 mg/dL (0.55-1.3); POTASSIUM 4.5 mmol/L (3.5-5.1); TOT PROT 8.5 g/dl (6.4-8.2)
--- NOTE | 2019-08-16 18:51 | PDOC ---
Attending Attestation - Resident Resident Name: Jorge Zepeda - ED Attending Attestation I have performed the following: I have examined & evaluated the patient, The case was reviewed & discussed with the resident, I agree w/resident's findings & plan, Exceptions are as noted - HPI HPI: 08/16/19 18:51 Ms. salguero is a 74-year-old female who presents emergency department with a complaint of dysuria, hematuria, frequency, urgency. She has a past medical history of COPD, recurrent UTIs. Patient was last seen in the ER in November and was admitted for UTI (cultures never grew a specific organism). Patient's daughter states that she does not often disclose her symptoms. Per patient she has had 1 -2 week of frequency, urgency Patient symptoms have consistently worsened over this time. Patient's daughter was told of the symptoms, brought her to the urologist 3 days ago. There, she was started on Macrobid as well as Myrbetriq. Patient states her symptoms have not improved on Macrobid. No fevers, chills. No flank pain. Patient does note suprapubic tenderness, severe burning with urination, and hematuria. Denies h/a, cp, cough, sob, n/n, diarrhea constipation, melena, hematochezia, dysuria, flank pain. - Physicial Exam PE: 08/16/19 18:54 GENERAL: The patient is in no acute distress. ENT: Ears normal, nares patent, oropharynx clear without exudates. Moist mucous membranes. NECK: Normal range of motion, supple, no nuchal rigidity (+) LAD LUNGS: Breath sounds equal, clear to auscultation bilaterally. No wheezes, and no crackles. HEART:Regular rate and rhythm, normal S1 and S2 without murmur, rub or gallop. ABDOMEN: Soft, nontender, normoactive bowel sounds. PELVIC: External examination reveals erythematous skin in the groin and erythematous skin of the external labia as well as clitoris There is a small ulcer noted on the clitoris No discharge noted EXTREMITIES: Normal range of motion, no edema. NEUROLOGICAL: Cranial nerves II through XII grossly intact. Normal speech. No focal neurological deficits. SKIN: Please see above - Medical Decision Making 08/16/19 18:56 74-year-old female presenting to emergency department with symptoms consistent with urinary tract infection. Patient demonstrates no systemic signs of illness. Patient's urinalysis was sent, and lost by the lab. We will have to resend. 08/16/19 18:56 Laboratory Tests 08/16/19 08/16/19 17:09 17:09 WBC 11.5 H Hgb 10.4 L Hct 33.0 D Plt Count 410 D BUN 24.5 H Creatinine 1.5 H External examination reveals excoriated and irritated skin. ? Consistent with candidal infection, versus a contact dermatitis Patient is pending: Urinalysis IV hydration Low threshold for admission
[2019-08-16 21:16] LABS: URINE APPEARANCE TURBID; URINE BILIRUBIN SMALL (NEGATIVE); URINE COLOR RED; URINE GLUCOSE (UA) NEGATIVE (NEGATIVE)
[2019-08-16 21:17] LABS: URINE KETONE NEGATIVE (NEGATIVE); URINE LEUK ESTERASE 4+ (NEGATIVE); URINE NITRITE POSITIVE (NEGATIVE); URINE PROTEIN 2+ (NEGATIVE); URINE RBC 301.9 /hpf (0-4); URINE UROBILINOGEN 0.2 mg/dL (0.2-1.0); URINE WBC 410.5 /hpf (0-5)
[2019-08-16 21:18] LABS: EPI CELLS 11.1 /HPF (0-5/HPF); URINE BACTERIA 0.7 /hpf (NEGATIVE); YEAST NEGATIVE (NEGATIVE)
--- NOTE | 2019-08-16 21:19 | PDOC ---
*Physical Exam - Vital Signs Last Vital Signs Temp Pulse Resp BP Pulse Ox 97.8 F 111 H 18 107/67 97 08/16/19 16:30 08/16/19 16:30 08/16/19 16:30 08/16/19 16:30 08/16/19 17:48 ED Treatment Course - LABORATORY CBC & Chemistry Diagram: 08/20/19 07:28 08/19/19 06:15 - ADDITIONAL ORDERS Additional order review: Laboratory Results 08/16/19 08/16/19 17:09 17:09 Sodium 135 L Potassium 4.5 Chloride 104 Carbon Dioxide 21 Anion Gap 9 BUN 24.5 H Creatinine 1.5 H Est GFR (CKD-EPI)AfAm 39.09 Est GFR (CKD-EPI)NonAf 33.73 Random Glucose 96 Lactic Acid 1.7 Calcium 11.4 H Total Bilirubin 0.3 AST 13 L ALT 15 Alkaline Phosphatase 94 Total Protein 8.5 H Albumin 3.6 08/16/19 17:09 RBC 3.66 MCV 90.4 MCHC 31.6 L RDW 14.9 D MPV 8.7 Neutrophils % 74.1 D Lymphocytes % 16.3 D Monocytes % 7.3 Eosinophils % 1.5 Basophils % 0.8 - Medications Given in the ED: ED Medications Discontinued Medications Generic Name Dose Route Start Last Admin Trade Name Freq PRN Reason Stop Dose Admin Sodium Chloride 1,000 mls @ 1,000 mls/hr 08/16/19 16:38 08/16/19 17:13 Normal Saline - IV 08/16/19 17:37 1,000 mls/hr ASDIR STA Administration Medical Decision Making - Medical Decision Making Patient signed out by Dr. Zepeda 74yo F with urinary symptoms Was treated with macrobid, but still symptomatic Pending UA 08/16/19 21:18 UA with infection Treated with Rocephin Accepted for admission by [facility] team Discharge - Discharge Information Problems reviewed: Yes Clinical Impression/Diagnosis: Urinary complications UTI (urinary tract infection) Qualifiers: Urinary tract infection type: site unspecified Hematuria presence: with hematuria Qualified Code(s): N39.0 - Urinary tract infection, site not specified Condition: Guarded - Admission Yes - Follow up/Referral - Patient Discharge Instructions - Post Discharge Activity
[2019-08-16] MEDS ORDERED: CEFTRIAXONE 1,000 MG in DEXTROSE 5%-WATER - 50 ML IVPB ONE (21:55)
[2019-08-16] MEDS ORDERED: CEFTRIAXONE 1 GM/50 ML BAG ONE (22:16)
--- NOTE | 2019-08-16 22:43 | PN ---
Teaching Attending Note Name of Resident: Kristyn Cruz ATTENDING PHYSICIAN STATEMENT I saw and evaluated the patient. I reviewed the resident's note and discussed the case with the resident. I agree with the resident's findings and plan as documented. SUBJECTIVE: Patient is a 74 year old woman with PMH of COPD, UTIs, and Penicillin allergy who presents ER with a complaint of dysuria, hematuria, frequency, urgency. Patient was last seen in the ER in November and was admitted for UTI (cultures never grew a specific organism). Patient's daughter states that she does not often disclose her symptoms. Per patient she has had 1 -2 week of frequency and urgency. Her symptoms have consistently worsened over this time. Patient was seen by her Urologist 3 days ago and was started on Macrobid as well as Myrbetriq, but her symptoms have not improved. Denies fevers, chills, flank pain , headache, chestpain, cough, SOB, nausea, vomiting, diarrhea constipation, melena or hematochezia. Patient does note suprapubic tenderness. Also recently noted decreased vision in her right eye. has a perineal rash that nieves, especially with urination. She has a 40+ pack year smoking history but she has not smoked for the past 15 years. Denies alcohol or illicit drug use. No recent travel or sick contact. OBJECTIVE: Alert Vital Signs Period Temp Pulse Resp BP Sys/Palma Pulse Ox Last 24 Hr 97.8 F 111 18 107/67 97-100 HEENT: No Jaundice, eye redness or discharge, PERRLA, EOMI. Normocephalic, atraumatic. External ears are normal and hearing is grossly intact. No nasal discharge. Neck: Supple, nontender. No palpable adenopathy or thyromegaly. No JVD Chest: Good effort. Clear to auscultation and percussion. Heart: Regular. No S3, rub or murmur Abdomen: Not distended, soft, nontender and no HSM. No rebound or guarding. Normal bowel sounds. Ext: Peripheral pulses intact. No leg edema. Skin: Warm and dry. No petechiae or ecchymosis. Vaginal and perineal erythematous maculopapular rash. Neuro: Alert. Oriented x3. CN 2-12 grossly intact. Sensation grossly intact in all four extremities and DTR are symmetric. Psych: Appropriate mood and affect. Good insight. Home Medications Medication Instructions Recorded Albuterol Sulfate Inhaler - 1 puff IH PRN 12/01/18 [Ventolin HFA Inhaler -] Ferrous Sulfate [Iron] 325 mg PO DAILY 12/01/18 Fluticasone Propionate [Flovent 100 mcg IH PRN 12/01/18 Diskus] Sennosides/Docusate Sodium 1 each PO PRN 12/01/18 [Senna-Docusate Sodium Tablet] Abnormal Lab Results 08/16/19 08/16/19 08/16/19 17:09 17:09 20:04 WBC 11.5 H Hgb 10.4 L MCHC 31.6 L Absolute Neuts (auto) 8.5 H Sodium 135 L BUN 24.5 H Creatinine 1.5 H Calcium 11.4 H AST 13 L Total Protein 8.5 H Urine Protein 2+ H Urine Blood 3+ H Urine Nitrite Positive H D Ur Leukocyte Esterase 4+ H ASSESSMENT AND PLAN: 1. UTI - Will treat with IV levofloxacin since she is allergic to penicillin. CXR shows hyperinflation with no infiltrates. Bladder ultrasound shows thickening of bladder wall. EKG shows NSR with no significant ST-T wave changes. Chronic hematuria, with now associated hypercalcemia is worrisome for malignancy. Consult urology and oncology. Hypercalcemia is unexplained. Will get PTH, serum phosphate and urine calcium. Continue IV NS to correct hypercalcemia. Will treat perineal rash with miconazole+antibacterial cream. Consult opthalmology for diminished in right eye. Will continue comprehensive care for all of patients comorbid conditions. 2. Hypoalbuminemia - Possibly due to combined effects of proteinuria, malnutrition and inflammation associated with comorbid chronic conditions. Will ensure adequate dietary protein intake and also consult scanning clerk. 3. CKD - No obvious risk factor. Needs basic nephrologic workup including kidney sonogram, PTH, phosphate. Continue IV NS and encourage increased oral fluid intake to correct any associated dehydration. Consult nephrology and avoid nephrotoxic agents such as NSAIDS, aminoglycosides, contrast dyes and certain Alternative medicine products. 4. Anemia - Likely partly due to CKD. Will do basic anemia work up including serial stool guaiacs, reticulocyte count and iron studies. Would benefit from Procrit therapy once iron replete. 5. DVT prophylaxis - SCD until workup for hematuria is concluded. 6. Advance directives - Full code
--- NOTE | 2019-08-17 03:30 | HP ---
CHIEF COMPLAINT: hematuria PCP:amna HISTORY OF PRESENT ILLNESS: 74 yo F PMH CKD, COPD, recurrent UTI presents to ED for 1 mo hematuria. pt states that she has been having 1 mo hematuria, weakness, chills, decreased appetite and >20 lb weight loss. she states that her urine is dark red with clots. she states that she went to her urologist 3 days ago who evaluated her for UTI and gave her macrobid and myrberiq. she states that she has been on "antibiotics" with no relief. she also endorses constipation. pt states that over the past month she noticed loss of vision of her R eye. she states she only sees shadows of that eye. denies fevers, nausea, vomiting. ER course was notable for: (1)bladder U/S (2)+ UA (3)empiric ceftriaxone Recent Travel: denies PAST MEDICAL HISTORY: CKD, COPD, recurrent UTI PAST SURGICAL HISTORY: denies Social History: Smoking: past history, 30 years. quit years ago Alcohol:denies Drugs: denies Allergies Penicillins Allergy (Verified 08/16/19 16:37) shellfish derived Allergy (Verified 08/16/19 16:37) HOME MEDICATIONS: Home Medications Medication Instructions Recorded Albuterol Sulfate Inhaler - 1 puff IH PRN 12/01/18 [Ventolin HFA Inhaler -] Ferrous Sulfate [Iron] 325 mg PO DAILY 12/01/18 Fluticasone Propionate [Flovent 100 mcg IH PRN 12/01/18 Diskus] Sennosides/Docusate Sodium 1 each PO PRN 12/01/18 [Senna-Docusate Sodium Tablet] REVIEW OF SYSTEMS CONSTITUTIONAL: Present: chills, generalized weakness, loss of appetitie, 20 lbs weight loss unintentional Absent: fever, diaphoresis, malaise HEENT: Present: decreased vision R eye Absent: rhinorrhea, nasal congestion, throat pain, throat swelling, difficulty swallowing, mouth swelling, ear pain, eye pain CARDIOVASCULAR Present: lightheaded Absent: chest pain, syncope, palpitations, irregular heart rate,peripheral edema RESPIRATORY: Absent: cough, shortness of breath, dyspnea with exertion, orthopnea, wheezing, stridor, hemoptysis GASTROINTESTINAL: Present: constipation Absent: abdominal pain, abdominal distension, nausea, vomiting, diarrhea, melena, hematochezia GENITOURINARY: Present: dysuria, frequency, urgency, hematuria, genital pain and rash Absent: hesitancy,flank pain MUSCULOSKELETAL: Absent: myalgia, arthralgia, joint swelling, back pain, neck pain SKIN: Absent: rash, itching, pallor HEMATOLOGIC/IMMUNOLOGIC: Absent: easy bleeding, easy bruising, lymphadenopathy, frequent infections ENDOCRINE: Presnt: unexplained weight loss Absent: unexplained weight gain, heat intolerance, cold intolerance NEUROLOGIC: Present: dizziness Absent: headache, focal weakness or paresthesias, unsteady gait, seizure, mental status changes, bladder or bowel incontinence PSYCHIATRIC: Absent: anxiety, depression, suicidal or homicidal ideation, hallucinations. PHYSICAL EXAMINATION Vital Signs - 24 hr 08/16/19 08/16/19 08/16/19 16:30 17:48 21:37 Temperature 97.8 F 98.5 F Pulse Rate 111 H Pulse Rate [ 78 Left Radial] Respiratory 18 19 Rate Blood Pressure 107/67 Blood Pressure 136/78 [Right Arm] O2 Sat by Pulse 100 97 99 Oximetry (%) GENERAL: Awake, alert, and fully oriented, in no acute distress. pale, thin HEAD: Normal with no signs of trauma. EYES: Pupils equal, round and reactive to light, extraocular movements intact, No red reflex of R eye EARS, NOSE, THROAT: nares patent, oropharynx clear without exudates. Moist mucous membranes. NECK: Normal range of motion, supple without lymphadenopathy, JVD, or masses. LUNGS: Breath sounds equal, clear to auscultation bilaterally. decreased at bases. No accessory muscle use. HEART: Regular rate and rhythm, normal S1 and S2 ABDOMEN: Soft, nontender, not distended, normoactive bowel sounds, no guarding, no rebound MUSCULOSKELETAL: Normal range of motion at all joints. No bony deformities or tenderness. No CVA tenderness. UPPER EXTREMITIES: 2+ pulses, warm, well-perfused. No cyanosis. No clubbing. No peripheral edema. LOWER EXTREMITIES: 2+ pulses, warm, well-perfused. No calf tenderness. No peripheral edema. NEUROLOGICAL: Cranial nerves II-XII intact. Normal speech. Normal gait. PSYCHIATRIC: Cooperative. Good eye contact. Appropriate mood and affect. SKIN: Warm, dry, normal turgor, no rashes or lesions noted, normal capillary refill. : erythematous, tender rash extending from vagina to sacrum, including labia Laboratory Last Values WBC 11.5 K/mm3 (4.0-10.0) H 08/16/19 17:09 RBC 3.66 M/mm3 (3.60-5.2) 08/16/19 17:09 Hgb 10.4 GM/dL (10.7-15.3) L 08/16/19 17:09 Hct 33.0 % (32.4-45.2) D 08/16/19 17:09 MCV 90.4 fl (80-96) 08/16/19 17:09 MCH 28.6 pg (25.7-33.7) D 08/16/19 17:09 MCHC 31.6 g/dl (32.0-36.0) L 08/16/19 17:09 RDW 14.9 % (11.6-15.6) D 08/16/19 17:09 Plt Count 410 K/MM3 (134-434) D 08/16/19 17:09 MPV 8.7 fl (7.5-11.1) 08/16/19 17:09 Absolute Neuts (auto) 8.5 K/mm3 (1.5-8.0) H 08/16/19 17:09 Neutrophils % 74.1 % (42.8-82.8) D 08/16/19 17:09 Lymphocytes % 16.3 % (8-40) D 08/16/19 17:09 Monocytes % 7.3 % (3.8-10.2) 08/16/19 17:09 Eosinophils % 1.5 % (0-4.5) 08/16/19 17:09 Basophils % 0.8 % (0-2.0) 08/16/19 17:09 Nucleated RBC % 0 % (0-0) 08/16/19 17:09 Sodium 135 mmol/L (136-145) L 08/16/19 17:09 Potassium 4.5 mmol/L (3.5-5.1) 08/16/19 17:09 Chloride 104 mmol/L (98-107) 08/16/19 17:09 Carbon Dioxide 21 mmol/L (21-32) 08/16/19 17:09 Anion Gap 9 MMOL/L (8-16) 08/16/19 17:09 BUN 24.5 mg/dL (7-18) H 08/16/19 17:09 Creatinine 1.5 mg/dL (0.55-1.3) H 08/16/19 17:09 Est GFR (CKD-EPI)AfAm 39.09 08/16/19 17:09 Est GFR (CKD-EPI)NonAf 33.73 08/16/19 17:09 Random Glucose 96 mg/dL (74-106) 08/16/19 17:09 Lactic Acid 1.7 mmol/L (0.4-2.0) 08/16/19 17:09 Calcium 11.4 mg/dL (8.5-10.1) H 08/16/19 17:09 Total Bilirubin 0.3 mg/dL (0.2-1) 08/16/19 17:09 AST 13 U/L (15-37) L 08/16/19 17:09 ALT 15 U/L (13-61) 08/16/19 17:09 Alkaline Phosphatase 94 U/L (45-117) 08/16/19 17:09 Total Protein 8.5 g/dl (6.4-8.2) H 08/16/19 17:09 Albumin 3.6 g/dl (3.4-5.0) 08/16/19 17:09 Urine Color Red 08/16/19 20:04 Urine Appearance Turbid 08/16/19 20:04 Urine pH 5.0 (5.0-8.0) D 08/16/19 20:04 Ur Specific [place] 1.013 (1.010-1.035) 08/16/19 20:04 Urine Protein 2+ (NEGATIVE) H 08/16/19 20:04 Urine Glucose (UA) Negative (NEGATIVE) 08/16/19 20:04 Urine Ketones Negative (NEGATIVE) 08/16/19 20:04 Urine Blood 3+ (NEGATIVE) H 08/16/19 20:04 Urine Nitrite Positive (NEGATIVE) H D 08/16/19 20:04 Urine Bilirubin Small (NEGATIVE) 08/16/19 20:04 Urine Urobilinogen 0.2 mg/dL (0.2-1.0) 08/16/19 20:04 Ur Leukocyte Esterase 4+ (NEGATIVE) H 08/16/19 20:04 Urine WBC (Auto) 410.5 /hpf (0-5) 08/16/19 20:04 Urine RBC (Auto) 301.9 /hpf (0-4) 08/16/19 20:04 Urine Casts (Auto) 538.30 /lpf (0-8) 08/16/19 20:04 U Pathogenic Cast Auto Negative /lpf (NEGATIVE) 08/16/19 20:04 U Epithel Cells (Auto) 11.1 /HPF (0-5/HPF) 08/16/19 20:04 Urine Bacteria (Auto) 0.7 /hpf (NEGATIVE) 08/16/19 20:04 Urine Yeast (Auto) Negative (NEGATIVE) 08/16/19 20:04 Pelvic U/S Similar to a CT exam of 12/01/2018 note is made of diffuse urinary bladder wall thickening which may be on the basis of chronic cystitis versus recurrent cystitis. This finding is much better appreciated on CT. Follow-up CT or MRI may be considered. No obvious calculus or mass lesion is identified within the limitations of sonography. A post void residual urinary volume of 190 mL is seen. The prevoid volume was 250 mL. No free intraperitoneal fluid is noted. Several small calcified uterine leiomyomas are again seen. The endometrium is not well visualized on this transabdominal study. No gross endometrial thickening is visualized. The ovaries could not be definitely identified. \\ ASSESSMENT/PLAN: 74 yo F PMH CKD, COPD, recurrent UTI presents to ED for 1 mo hematuria. pt is admitted for uti, r/o bladder ca vs renal cell carcinoma , r/o Multiple myeloma Hematuria 2/2 UTI vs bladder ca vs renal cell carcinoma -(+) UA : Nitrite +, 4+ LE , >400 WBC; pending UCx - s/p ceftriaxone in ED, pt is PCN allergy, will start levaquin - U/s performed, see above - urology recs appreciated, consider cystoscopy ? -c/w gentle hydration Hypercalcemia , elevated total protein - pending PTH, Urine Calcium, phos - r/o Multiple myeloma - pending kappa light chain - oncology recs appreciated CKD - pt at baseline - avoid neprhotoxic agents Acute Vision loss - over 1 month - consider opthalmology consultation Vaginitis - possibly 2/2 fungal - topical clotrimazole F/E/N - IV NS @ 50 mls/hr - monitor lytes DVT ppx: SCDs Dispo: admit to medicine Visit type - Emergency Visit Emergency Visit: Yes ED Registration Date: 08/16/19 Care time: The patient presented to the Emergency Department on the above date and was hospitalized for further evaluation of their emergent condition. - New Patient This patient is new to me today: Yes Date on this admission: 08/27/19 - Critical Care Critical Care patient: No ATTENDING PHYSICIAN STATEMENT I saw and evaluated the patient. I reviewed the resident's note and discussed the case with the resident. I agree with the resident's findings and plan as documented. SUBJECTIVE: OBJECTIVE: ASSESSMENT AND PLAN:
[2019-08-17] MEDS ORDERED: SODIUM CHLORIDE 1,000 ML IV SCH (03:45)
[2019-08-17] MEDS ORDERED: DOCUSATE SODIUM 100 MG CAPSULE (FP) PO ONE (04:43)
[2019-08-17 09:15] LABS: BASO % 0.7 % (0-2.0); EOS % 4.4 % (0-4.5); HEMATOCRIT 29.6 % (32.4-45.2); HEMOGLOBIN 9.4 GM/dL (10.7-15.3); LYMPH % 20.8 % (8-40); MCH 29.1 pg (25.7-33.7); MCHC 31.9 g/dl (32.0-36.0); MEAN CELL VOLUME 91.2 fl (80-96); MEAN PLT VOLUME 8.6 fl (7.5-11.1); MONO % 8.3 % (3.8-10.2); NEUT % 65.8 % (42.8-82.8); PLATELET COUNT 375 K/MM3 (134-434); RBC 3.24 M/mm3 (3.60-5.2); WHITE BLOOD COUNT 7.8 K/mm3 (4.0-10.0)
[2019-08-17 09:49] LABS: BILIRUBIN,TOTAL 0.2 mg/dL (0.2-1); BLOOD UREA NITROGEN 19.5 mg/dL (7-18); CALCIUM 9.9 mg/dL (8.5-10.1); CREATININE 1.2 mg/dL (0.55-1.3); MAGNESIUM 2.1 mg/dL (1.8-2.4); PHOSPHOROUS 2.9 mg/dL (2.5-4.9); POTASSIUM 4.2 mmol/L (3.5-5.1); TOT PROT 7.5 g/dl (6.4-8.2)
[2019-08-17 09:51] LABS: IRON SERUM 24 ug/dL (50-175); TOTAL IRON BINDING CAPACITY 227 ug/dL (250-450)
[2019-08-17] MEDS: DOCUSATE SODIUM 100 MG CAPSULE (FP) PO SCH (10:00)
--- NOTE | 2019-08-17 14:04 | EKG ---
Test Reason : Blood Pressure : / mmHG Vent. Rate : 083 BPM Atrial Rate : 083 BPM P-R Int : 150 ms QRS Dur : 090 ms QT Int : 374 ms P-R-T Axes : 080 073 084 degrees QTc Int : 439 ms POOR DATA QUALITY, INTERPRETATION MAY BE ADVERSELY AFFECTED NORMAL SINUS RHYTHM EARLY REPOLARIZATION ABNORMAL ECG Confirmed by KAN IBRAHIM MD ([id number]) on 08/17/2019 2:03:50 PM Referred By: Confirmed By:KAN IBRAHIM MD
[2019-08-17] MEDS ORDERED: ALBUTEROL SO4 8 GM HFA INHALER IH PRN (14:21)
--- NOTE | 2019-08-17 16:03 | PN ---
Teaching Attending Note Name of Resident: Harriett Cardoso ATTENDING PHYSICIAN STATEMENT I saw and evaluated the patient. I reviewed the resident's note and discussed the case with the resident. I agree with the resident's findings and plan as documented. SUBJECTIVE: no fever or chills. has fatigue. no appetite, reports weight loss. No vaginal discharge but ulcers and pain in external genitalia. hematuria wit clots for a long while, she reports a month or more. also frequency and dysuria also for a month at least. No abd pain reports blurry vision in R eye for a while. not specific regarding exact timing. She notices it when she closes the left eye. OBJECTIVE: NAD, MMM, thin appearing. cataract in both eyes, denser in R eye Cv: RRR, no MRG Lungs: CTAB . Abd: soft, TTP in RLQ, LLQ, no rebound tenderness or guarding Ext : No edema or erythema : Nl hair distribution . erythematous skin on labia majoris , also ulces on mucus membranes NEuro: EOMi, round equal pupils, reactive to light. no facial droop. round equal pupils,. tongue and uvula at mid ine. strength 5/5 in upper and lower extremities proximally and distally. sensation to light touch is normal. reflexes 2+ knee jerk and biceps ASSESSMENT AND PLAN: 74 y/o lady with h/o recurrent UTIs, hematuria requiring transfusion , COPD, and a lung mass who presented with hematuria and urgency/dysuria x 1 month . 1- Hematuria with urgency and dyuria: DDx hemorrhagic cystitis , VS bladder cancer. renal cancer is less likley. doubt UTI for 1 month. pyuria might be part of the original process. doubt intersitial nephritis - obtain Ct of abd and pelvis - bladder and renal US noted. - this lady might need cystoscopy and biopsies. Not evaluate by uro yet. will call - cont empiric levaquin, but decrease dose to 250 for her cr clearance - follow urine cx 2- CKD: cr at base line 3- Normocytic anemia : iron studies don't indicate iron def but ferritin is an acute phase rectant. w/u to cont as out p t 4- mild hypercalcemia: improved - IVF - PTH - SPEP/UPEP done 5- weight loss. per old records in EMR, she had a lung bx that was biopsied in [facility]. will try to ask her further . of course malignancy is in DDx ( urianry vs lung vs other ) also check TSH . UPEP/SPEP pending 6- calcified uterine myomas on US. out pt f/u 7- R eye blurriness: likley due to cataract vs age related decreased vision. she has never seen an business communications instructor. doubt a stroke, as neuro exam is better. doubt optic neuritis - when fundoscope is available will perform fundoscopic exam - get CT of head - ophth was consulted 8- DVT px : SCds 9- nystatin and zinc oxide on genital area
--- NOTE | 2019-08-17 16:28 | PN ---
Physical Exam: SUBJECTIVE: Patient seen and examined. She reports blood clots in urine over the last few weeks to month. She also reports some suprapubic tenderness, chills , 20lb weight loss, dysuria, and vaginal itching. She denies nausea, vomiting, or vaginal discharge. Pt is former smoker. OBJECTIVE: Vital Signs Period Temp Pulse Resp BP Sys/Palma Pulse Ox Last 24 Hr 97.8 F-98.5 F 78-111 18-20 107-136/67-78 97-100 GENERAL: The patient is awake, alert, and fully oriented, in no acute distress. HEAD: Normal with no signs of trauma. EYES: PERRL, extraocular movements intact, conjunctiva clear. ENT: Ears normal, nares patent, moist mucous membranes. NECK: Trachea midline, full range of motion LUNGS: clear to auscultation bilaterally HEART: Regular rate and rhythm, S1, S2 without murmur ABDOMEN: Soft, suprapubic tenderness to palpation, nondistended, normoactive bowel sounds, no guarding EXTREMITIES: Warm, well-perfused, no edema. NEUROLOGICAL: Cranial nerves II through XII grossly intact. Normal speech. PSYCH: Normal mood, normal affect. SKIN: Warm, dry, normal turgor, no rashes noted Laboratory Results - last 24 hr 08/16/19 08/16/19 08/16/19 17:09 17:09 17:09 WBC 11.5 H RBC 3.66 Hgb 10.4 L Hct 33.0 D MCV 90.4 MCH 28.6 D MCHC 31.6 L RDW 14.9 D Plt Count 410 D MPV 8.7 Absolute Neuts (auto) 8.5 H Neutrophils % 74.1 D Lymphocytes % 16.3 D Monocytes % 7.3 Eosinophils % 1.5 Basophils % 0.8 Nucleated RBC % 0 Retic Count Sodium 135 L Potassium 4.5 Chloride 104 Carbon Dioxide 21 Anion Gap 9 BUN 24.5 H Creatinine 1.5 H Est GFR (CKD-EPI)AfAm 39.09 Est GFR (CKD-EPI)NonAf 33.73 Random Glucose 96 Lactic Acid 1.7 Calcium 11.4 H Phosphorus Magnesium Iron TIBC Iron Saturation Unsaturated IBC Ferritin Total Bilirubin 0.3 AST 13 L ALT 15 Alkaline Phosphatase 94 Total Protein 8.5 H Albumin 3.6 Urine Color Urine Appearance Urine pH Ur Specific [place] Urine Protein Urine Glucose (UA) Urine Ketones Urine Blood Urine Nitrite Urine Bilirubin Urine Urobilinogen Ur Leukocyte Esterase Urine WBC (Auto) Urine RBC (Auto) Urine Casts (Auto) U Pathogenic Cast Auto U Epithel Cells (Auto) Urine Bacteria (Auto) Urine Yeast (Auto) Urine Calcium 08/16/19 08/17/19 08/17/19 20:04 07:33 07:33 WBC 7.8 RBC 3.24 L Hgb 9.4 L Hct 29.6 L MCV 91.2 MCH 29.1 MCHC 31.9 L RDW 15.0 Plt Count 375 MPV 8.6 Absolute Neuts (auto) 5.1 Neutrophils % 65.8 Lymphocytes % 20.8 D Monocytes % 8.3 Eosinophils % 4.4 D Basophils % 0.7 Nucleated RBC % 0 Retic Count Sodium 138 Potassium 4.2 Chloride 109 H Carbon Dioxide 21 Anion Gap 8 BUN 19.5 H Creatinine 1.2 Est GFR (CKD-EPI)AfAm 51.20 Est GFR (CKD-EPI)NonAf 44.17 Random Glucose 82 Lactic Acid Calcium 9.9 Phosphorus 2.9 Magnesium 2.1 Iron TIBC Iron Saturation Unsaturated IBC Ferritin 105.8 Total Bilirubin 0.2 AST 11 L ALT 15 Alkaline Phosphatase 82 Total Protein 7.5 Albumin 3.0 L Urine Color Red Urine Appearance Turbid Urine pH 5.0 D Ur Specific [place] 1.013 Urine Protein 2+ H Urine Glucose (UA) Negative Urine Ketones Negative Urine Blood 3+ H Urine Nitrite Positive H D Urine Bilirubin Small Urine Urobilinogen 0.2 Ur Leukocyte Esterase 4+ H Urine WBC (Auto) 410.5 Urine RBC (Auto) 301.9 Urine Casts (Auto) 538.30 U Pathogenic Cast Auto Negative U Epithel Cells (Auto) 11.1 Urine Bacteria (Auto) 0.7 Urine Yeast (Auto) Negative Urine Calcium 08/17/19 08/17/19 08/17/19 07:33 07:33 15:00 WBC RBC Hgb Hct MCV MCH MCHC RDW Plt Count MPV Absolute Neuts (auto) Neutrophils % Lymphocytes % Monocytes % Eosinophils % Basophils % Nucleated RBC % Retic Count 0.85 Sodium Potassium Chloride Carbon Dioxide Anion Gap BUN Creatinine Est GFR (CKD-EPI)AfAm Est GFR (CKD-EPI)NonAf Random Glucose Lactic Acid Calcium Phosphorus Magnesium Iron 24 L TIBC 227 L Iron Saturation 10 L Unsaturated IBC 203 Ferritin Total Bilirubin AST ALT Alkaline Phosphatase Total Protein Albumin Urine Color Urine Appearance Urine pH Ur Specific [place] Urine Protein Urine Glucose (UA) Urine Ketones Urine Blood Urine Nitrite Urine Bilirubin Urine Urobilinogen Ur Leukocyte Esterase Urine WBC (Auto) Urine RBC (Auto) Urine Casts (Auto) U Pathogenic Cast Auto U Epithel Cells (Auto) Urine Bacteria (Auto) Urine Yeast (Auto) Urine Calcium Cancelled Active Medications Generic Name Dose Route Start Last Admin Trade Name Freq PRN Reason Stop Dose Admin Albuterol Sulfate 1 puff 08/17/19 14:21 Ventolin Hfa Inhaler - IH Q6H PRN WHEEZING Clotrimazole 1 applic 08/17/19 22:00 Gyne-Lotrimin - VG HS BEBETO Docusate Sodium 100 mg 08/17/19 10:00 08/17/19 10:00 Colace - PO 100 mg DAILY BEBETO Administration Ferrous Sulfate 325 mg 08/18/19 10:00 Feosol - PO DAILY BEBETO Sodium Chloride 1,000 mls @ 50 mls/hr 08/17/19 03:45 08/17/19 05:31 Normal Saline - IV 08/18/19 03:40 50 mls/hr ASDIR BEBETO Administration Levofloxacin 250 mg 08/18/19 06:00 Levaquin - PO DAILY@0600 BEBETO Multi-Ingredient Ointment 1 applic 08/17/19 22:00 Zinc Oxide TP BID BEBETO ASSESSMENT/PLAN: Ms. Thompson is a 74y/o female with CKD, COPD, and recurrent UTIs who presents with hematuria x 3 days and abdominal pain x 4 days. #hematuria r/o renal cell carcinoma vs bladder cancer vs UTI -U/S kidneys showed b/l multiple renal cysts -CT abdomen/pelvis without contrast- previously elevated Cr -will treat empirically with levaquin 250mg daily -urology consulted #vision changes in right eye r/o optic neuritis vs neoplasm vs temporal arteritis -pt has not gotten new eye glass prescription recently -CT head DVT Ppx SCDs FEN PO monitor BUN regular diet, add ensure dispo med/surg Visit type - Emergency Visit Emergency Visit: Yes ED Registration Date: 08/16/19 Care time: The patient presented to the Emergency Department on the above date and was hospitalized for further evaluation of their emergent condition. - New Patient This patient is new to me today: Yes Date on this admission: 08/17/19 - Critical Care Critical Care patient: No - Discharge Referral Referred to [facility] Med P.C.: No ATTENDING PHYSICIAN STATEMENT I saw and evaluated the patient. I reviewed the resident's note and discussed the case with the resident. I agree with the resident's findings and plan as documented. SUBJECTIVE: OBJECTIVE: ASSESSMENT AND PLAN:
[2019-08-17 18:32] LABS: HEMATOCRIT 28.7 % (32.4-45.2); HEMOGLOBIN 9.2 GM/dL (10.7-15.3); MCH 29.1 pg (25.7-33.7); MCHC 32.1 g/dl (32.0-36.0); MEAN CELL VOLUME 90.7 fl (80-96); MEAN PLT VOLUME 8.3 fl (7.5-11.1); PLATELET COUNT 357 K/MM3 (134-434); RBC 3.17 M/mm3 (3.60-5.2); RDW 14.5 % (11.6-15.6); WHITE BLOOD COUNT 8.8 K/mm3 (4.0-10.0)
[2019-08-17] MEDS: CLOTRIMAZOLE 1% VAGINAL CREAM WITH APPLICATOR 45 GM TUBE VG SCH ×2 (21:31→21:48)
[2019-08-17] MEDS: ZINC OXIDE 20% TOPICAL OINTMENT 30 GM TUBE TP SCH (21:31)
[2019-08-17] MEDS: ERTAPENEM SODIUM 1 GM in SODIUM CHLORIDE 50 ML IVPB SCH (22:24)
[2019-08-17] MEDS ORDERED: POLYETHYLENE GLYCOL 3350 119 GM BTL PO ONE (22:31)
[2019-08-18 07:18] LABS: BASO % 0.7 % (0-2.0); EOS % 3.7 % (0-4.5); HEMATOCRIT 26.9 % (32.4-45.2); HEMOGLOBIN 8.6 GM/dL (10.7-15.3); LYMPH % 15.5 % (8-40); MEAN CELL VOLUME 90.8 fl (80-96); MEAN PLT VOLUME 8.4 fl (7.5-11.1); MONO % 9.4 % (3.8-10.2); NEUT % 70.7 % (42.8-82.8); PLATELET COUNT 337 K/MM3 (134-434); RBC 2.96 M/mm3 (3.60-5.2); RDW 14.9 % (11.6-15.6); WHITE BLOOD COUNT 8.4 K/mm3 (4.0-10.0)
[2019-08-18 07:55] LABS: BLOOD UREA NITROGEN 14.6 mg/dL (7-18); CALCIUM 9.9 mg/dL (8.5-10.1); CREATININE 1.1 mg/dL (0.55-1.3); POTASSIUM 4.2 mmol/L (3.5-5.1)
[2019-08-18] MEDS: DOCUSATE SODIUM 100 MG CAPSULE (FP) PO SCH (09:57)
[2019-08-18] MEDS: ERTAPENEM SODIUM 1 GM in SODIUM CHLORIDE 50 ML IVPB SCH (09:57)
[2019-08-18] MEDS: FERROUS SO4 325 MG TABLET (FP) PO SCH (09:57)
--- NOTE | 2019-08-18 17:15 | PN ---
Physical Exam: SUBJECTIVE: Patient seen and examined' RANULFOON Has persistent urine with small clots. Endorses burning pain w/ urination, vaginal swelling/itching/burning OBJECTIVE: Vital Signs Period Temp Pulse Resp BP Sys/Palma Pulse Ox Last 24 Hr 97.5 F-98.4 F 83-102 20-102 89-132/48-69 100-100 GENERAL: The patient is awake, alert, and fully oriented, in no acute distress. HEAD: NC/AT. Moderate temporal wasting EYES: sclera anicteric, conjunctival pallor. ENT: Ears normal, nares patent, oropharynx clear without exudates, moist mucous membranes. Poor dentition NECK: Trachea midline, full range of motion, supple. Neg cervical LAD LUNGS: Mild expiratory wheezes b/l throughout lung morelos. No crackles, no accessory muscle use. Breathing RA HEART: Regular rate and rhythm, S1, S2 without murmur, rub or gallop. ABDOMEN: Soft, nondistended, normoactive bowel sounds, no guarding. TTP of suprapubic area GROIN: swelling and erythema of labia majora and clitoris EXTREMITIES: 2+ pulses, warm, well-perfused, no edema. NEUROLOGICAL: Normal speech, gait not observed. SKIN: Warm, dry Laboratory Results - last 24 hr 08/17/19 08/18/19 08/18/19 17:50 06:10 06:10 WBC 8.8 8.4 RBC 3.17 L 2.96 L Hgb 9.2 L 8.6 L Hct 28.7 L 26.9 L MCV 90.7 90.8 MCH 29.1 29.0 MCHC 32.1 32.0 RDW 14.5 14.9 Plt Count 357 337 MPV 8.3 8.4 Absolute Neuts (auto) 6.0 Neutrophils % 70.7 Lymphocytes % 15.5 D Monocytes % 9.4 Eosinophils % 3.7 Basophils % 0.7 Nucleated RBC % 0 Sodium 140 Potassium 4.2 Chloride 112 H Carbon Dioxide 22 Anion Gap 6 L BUN 14.6 Creatinine 1.1 Est GFR (CKD-EPI)AfAm 56.87 Est GFR (CKD-EPI)NonAf 49.07 Random Glucose 91 Calcium 9.9 TSH 4.11 H Active Medications Generic Name Dose Route Start Last Admin Trade Name Freq PRN Reason Stop Dose Admin Albuterol Sulfate 1 puff 08/17/19 14:21 Ventolin Hfa Inhaler - IH Q6H PRN WHEEZING Clotrimazole 1 applic 08/17/19 22:00 08/17/19 21:48 Gyne-Lotrimin - VG 1 applic HS BEBETO Administration Docusate Sodium 100 mg 08/17/19 10:00 08/18/19 09:57 Colace - PO 100 mg DAILY BEBETO Administration Ferrous Sulfate 325 mg 08/18/19 10:00 08/18/19 09:57 Feosol - PO 325 mg DAILY BEBETO Administration Ertapenem 1 gm/ Sodium 50 mls @ 100 mls/hr 08/17/19 21:15 08/18/19 09:57 Chloride IVPB 100 mls/hr DAILY BEBETO Administration Multi-Ingredient Ointment 1 applic 08/17/19 22:00 08/17/19 21:31 Zinc Oxide TP 1 applic BID BEBETO Administration ASSESSMENT/PLAN: 74y/o female with #hematuria --possibly chronic hemorrhagic cystitis vs malignancy - pt had cystoscopy in Summer 2018(?benign results) > (+) UA : Nitrite +, 4+ LE , >400 WBC > UCX(08/16/19): NGTD > U/S kidneys: b/l multiple renal cysts > CT abdomen/pelvis without contrast(elevated Cr) --read is pending - ED: s/p ceftriaxone in ED, pt is PCN allergy - Empiric Abx coverage: -- levaquin --> ertapenem --day 2 - Urology([facility]) consulted: --will eval pt on 08/19/19, possible cystoscopy on 08/20/19 #chronic normocytic anemia --baseline ?10 > Hgb 10.4 ... 8.6 - FeSO4 supplementation + colace - cw monitoring #Hypercalcemia --resolved > Ca 11.4 --> 9.9 > PTH --pending - pending kappa light chain - cw monitoring # CINTHIA --resolving > Cr 1.5 ... 1.1 - avoid neprhotoxic agents #Chronic Vision loss > CT H: neg acute path, frontoparietal microvascular changes - over 1 month - consider opthalmology consultation #Vaginitis - possibly 2/2 fungal - topical clotrimazole #?Hypothyroidism > TSH: 4.1 - possible repeat TSH as outpatient F/E/N - sodium controlled diet + Ensure(vanilla or strawberry) - monitor lytes DVT ppx: SCDs Dispo: MedSurg Visit type - Emergency Visit Emergency Visit: No - New Patient This patient is new to me today: No - Critical Care Critical Care patient: No ATTENDING PHYSICIAN STATEMENT I saw and evaluated the patient. I reviewed the resident's note and discussed the case with the resident. I agree with the resident's findings and plan as documented. SUBJECTIVE: OBJECTIVE: ASSESSMENT AND PLAN:
[2019-08-18] MEDS: ZINC OXIDE 20% TOPICAL OINTMENT 30 GM TUBE TP SCH ×2 (17:23→21:23)
--- NOTE | 2019-08-18 19:07 | PN ---
Teaching Attending Note Name of Resident: Mian Beth ATTENDING PHYSICIAN STATEMENT I saw and evaluated the patient. I reviewed the resident's note and discussed the case with the resident. I agree with the resident's findings and plan as documented. SUBJECTIVE: she cont to have hematuria. cont to have abd pain. No fever or chills. feels tired no diarrhea . No SOB or CP OBJECTIVE: NAD, MMM, thin appearing. Cv: RRR, no MRG Lungs: CTAB . Abd: soft, TTP in RLQ, LLQ, and suprapubic area. no rebound tenderness or guarding Ext : No edema or erythema skin: with a raised scar on posterior L shoulder . no surrounding erythema or tenderness ASSESSMENT AND PLAN: 74 y/o lady with h/o recurrent UTIs, hematuria requiring transfusion , COPD, who presented with hematuria and urgency/dysuria x 1 month . 1- Hematuria with urgency and dyuria: DDx hemorrhagic cystitis, VS bladder cancer. renal cancer is less likely. U cx is negative. first dose of Abx was given after cx was taken. - for now , cont ertapenem. patient tolerated well - case d/w Dr. Rosario, who will evaluate patient tomorrow and schedule/perform cystoscopy - CT of abd/pelvis on my review: generalized thickening of bladder wall , but especially on anterior wall ( irregular). renal cysts, and calcified uterus . - follow CT read - monitor hb 2- CKD: Cr at base line 3-acute blood loss anemia. on a back ground of chronic anemia - monitor HB and transfuse as needed 4- Mild hypercalcemia: corrected ca: 10.4 . Mopre hx taken frm daughter. she has been drinking mild and eatinf toast for a while now. so hypercalcemia might be explained by that - cont IVF - PTH pending - SPEP/UPEP done 5- Weight loss. - patient does not think she had a lung mass. daughter indicates that patietn never had lung mass. she had remote lung injury in childhood. Bx was done to a lesion on L posterior shoudler which was benign . -of course bladder cancer needs to be r/o - TSH is only slightly elevated. will repeat as out pt in steady state - UPEP/SPEP pending 6- calcified uterine myomas on US. out pt f/u 7- R eye blurriness: per daughter this is not new. likley due to cataract vs age related decreased vision. she has never seen an ticket collector or usher. Ct of head with no stroke - ophth f/u as out pt 8- DVT px : SCds 9- Nystatin and zinc oxide on genital area . uro eval of the ulceration
[2019-08-18] MEDS: CLOTRIMAZOLE 1% VAGINAL CREAM WITH APPLICATOR 45 GM TUBE VG SCH (21:23)
[2019-08-19 07:29] LABS: HEMATOCRIT 25.9 % (32.4-45.2); HEMOGLOBIN 8.2 GM/dL (10.7-15.3); MCHC 31.5 g/dl (32.0-36.0); MEAN CELL VOLUME 91.8 fl (80-96); MEAN PLT VOLUME 8.2 fl (7.5-11.1); PLATELET COUNT 308 K/MM3 (134-434); RBC 2.82 M/mm3 (3.60-5.2); RDW 15.3 % (11.6-15.6); WHITE BLOOD COUNT 6.8 K/mm3 (4.0-10.0)
[2019-08-19 07:40] LABS: INR 1.27 (0.83-1.09)
[2019-08-19 07:43] LABS: ACTIVATED PTT 28.7 SECONDS (25.2-36.5)
[2019-08-19 07:48] LABS: BLOOD UREA NITROGEN 10.5 mg/dL (7-18); CALCIUM 9.6 mg/dL (8.5-10.1); MAGNESIUM 1.7 mg/dL (1.8-2.4); PHOSPHOROUS 2.6 mg/dL (2.5-4.9); POTASSIUM 4.4 mmol/L (3.5-5.1)
--- NOTE | 2019-08-19 08:05 | CONS ---
DATE OF CONSULTATION: DATE OF DICTATION: 08/18/2019 Patient is a 74-year-old woman who has had gross hematuria intermittently since November. At that time she was admitted with a diagnosis of hemorrhagic cystitis and was to have outpatient cystoscopy, although it appears that this was never followed up on. At the present time of admission patient was admitted again with gross hematuria. The culture has since come back with no evidence of infection. Imaging to this point includes a CAT scan which showed normal upper tracts and a thick walled bladder. The patient has also had ultrasounds which confirmed thick walled bladder, but no other discrete definite masses have been found. Patient does have a history of smoking approximately 1 pack a day for about 15 years, but stopped about 40 years ago. Patient does complain of dysuria. Patient should have urine cytology performed and in addition will be booked for the OR for cystoscopy with possible bladder biopsies. MD SUSAN CRAWFORD/[id number]
[2019-08-19] MEDS ORDERED: PT OWN MED DRAWER 7, Y5N ONE (08:40)
[2019-08-19] MEDS: FERROUS SO4 325 MG TABLET (FP) PO SCH (09:30)
[2019-08-19] MEDS: ERTAPENEM SODIUM 1 GM in SODIUM CHLORIDE 50 ML IVPB SCH (09:30)
[2019-08-19] MEDS: ZINC OXIDE 20% TOPICAL OINTMENT 30 GM TUBE TP SCH ×2 (09:31→21:23)
[2019-08-19] MEDS: DOCUSATE SODIUM 100 MG CAPSULE (FP) PO SCH (09:31)
[2019-08-19] MEDS ORDERED: MAGNESIUM OXIDE 400 MG TABLET (FP) PO ONE (16:17)
--- NOTE | 2019-08-19 16:17 | PN ---
Progress Note (short form) - Note Progress Note: Subjective: No fever or chills. hematuria improved today . no diarrhea . Abd pain improved Objective: Vital Signs: Last Vital Signs Temp Pulse Resp BP Pulse Ox 98.3 F 76 20 100/58 L 100 08/19/19 15:41 08/19/19 15:41 08/19/19 15:41 08/19/19 15:41 08/19/19 09:00 Laboratory Results - last 24 hr 08/18/19 08/19/19 08/19/19 06:10 06:15 06:15 WBC 6.8 RBC 2.82 L Hgb 8.2 L Hct 25.9 L MCV 91.8 MCH 29.0 MCHC 31.5 L RDW 15.3 Plt Count 308 MPV 8.2 PT with INR INR PTT (Actin FS) Sodium 142 Potassium 4.4 Chloride 113 H Carbon Dioxide 23 Anion Gap 6 L BUN 10.5 Creatinine 1.0 Est GFR (CKD-EPI)AfAm 63.82 Est GFR (CKD-EPI)NonAf 55.07 Random Glucose 80 Calcium 9.6 Phosphorus 2.6 Magnesium 1.7 L PTH Intact 20 Stool Occult Blood 08/19/19 08/19/19 06:15 10:00 WBC RBC Hgb Hct MCV MCH MCHC RDW Plt Count MPV PT with INR 15.00 H INR 1.27 H PTT (Actin FS) 28.7 Sodium Potassium Chloride Carbon Dioxide Anion Gap BUN Creatinine Est GFR (CKD-EPI)AfAm Est GFR (CKD-EPI)NonAf Random Glucose Calcium Phosphorus Magnesium PTH Intact Stool Occult Blood Negative Physical Exam: NAD, MMM. Cv: RRR, no MRG Lungs: CTAB . Abd: soft, TTP in RLQ, LLQ, and suprapubic area. no rebound tenderness or guarding Ext : No edema or erythema ASSESSMENT AND PLAN: 74 y/o lady with h/o recurrent UTIs, hematuria requiring transfusion , COPD, who presented with hematuria and urgency/dysuria x 1 month . 1- Hematuria with urgency and dyuria: DDx hemorrhagic cystitis, VS bladder cancer. U cx is negative. - for now , cont ertapenem pending urology evaluation - To be evaluated by Dr. Bocanegra. plan for cystoscopy - CT of abd/pelvis on my review: generalized thickening of bladder wall , but especially on anterior wall ( irregular). renal cysts, and calcified uterus . - follow CT read - monitor Hb 2- CKD: Cr at base line 3-Acute blood loss anemia. on a back ground of chronic anemia - monitor HB and transfuse as needed 4- Mild hypercalcemia: due to increased milk intake. - monitor off hydration - PTH pending - SPEP/UPEP done 5- Weight loss. - No h/o lung mass. -of course bladder cancer needs to be r/o - TSH is only slightly elevated. will repeat as out pt in steady state - UPEP/SPEP pending 6- Calcified uterine myomas on US. out pt f/u 7- R eye blurriness: chronic . f/u with opth as out pt. 8- DVT px : SCds 9- Nystatin and zinc oxide on genital area . uro eval of the ulceration DVT PX : Scds only Visit type - Emergency Visit Emergency Visit: Yes ED Registration Date: 08/16/19 Care time: The patient presented to the Emergency Department on the above date and was hospitalized for further evaluation of their emergent condition. - New Patient This patient is new to me today: No - Critical Care Critical Care patient: No
[2019-08-19] MEDS: CLOTRIMAZOLE 1% VAGINAL CREAM WITH APPLICATOR 45 GM TUBE VG SCH (21:23)
[2019-08-20 08:43] LABS: HEMATOCRIT 25.6 % (32.4-45.2); HEMOGLOBIN 8.4 GM/dL (10.7-15.3); MCH 29.5 pg (25.7-33.7); MCHC 32.7 g/dl (32.0-36.0); MEAN CELL VOLUME 90.3 fl (80-96); MEAN PLT VOLUME 8.4 fl (7.5-11.1); PLATELET COUNT 306 K/MM3 (134-434); RBC 2.84 M/mm3 (3.60-5.2); RDW 14.7 % (11.6-15.6); WHITE BLOOD COUNT 4.9 K/mm3 (4.0-10.0)
[2019-08-20] MEDS: FERROUS SO4 325 MG TABLET (FP) PO SCH (09:48)
[2019-08-20] MEDS: DOCUSATE SODIUM 100 MG CAPSULE (FP) PO SCH (09:48)
[2019-08-20] MEDS: ERTAPENEM SODIUM 1 GM in SODIUM CHLORIDE 50 ML IVPB SCH (09:48)
[2019-08-20] MEDS: ZINC OXIDE 20% TOPICAL OINTMENT 30 GM TUBE TP SCH ×2 (09:48→22:52)
[2019-08-20 09:49] LABS: MAGNESIUM 1.7 mg/dL (1.8-2.4); PHOSPHOROUS 2.6 mg/dL (2.5-4.9)
[2019-08-20] MEDS ORDERED: MAGNESIUM SULF 50% (8.12 MEQ/2 ML-1 GM VIAL) IVPB ONE (11:58)
--- NOTE | 2019-08-20 14:15 | PN ---
Physical Exam: SUBJECTIVE: Patient seen and examined. She reports hematuria is resolved. She denies abdominal pain, vaginal itching and pain, chills, or fever. She reports her appetite is improved. OBJECTIVE: Vital Signs Period Temp Pulse Resp BP Sys/Palma Pulse Ox Last 24 Hr 98 F-98.3 F 74-101 20-20 92-100/50-60 100-100 GENERAL: The patient is awake, alert, and fully oriented, in no acute distress. HEAD: Normal with no signs of trauma. EYES: PERRL, extraocular movements intact, conjunctiva clear. ENT: Ears normal, nares patent, moist mucous membranes. NECK: Trachea midline, full range of motion LUNGS: Clear to auscultation bilaterally HEART: Regular rate and rhythm, S1, S2 without murmur ABDOMEN: Soft, non-tender, nondistended, normoactive bowel sounds, no guarding EXTREMITIES: Warm, well-perfused, no edema. NEUROLOGICAL: Cranial nerves II through XII grossly intact. Normal speech. PSYCH: Normal mood, normal affect. SKIN: Warm, dry, normal turgor, no rashes noted Laboratory Results - last 24 hr 08/20/19 08/20/19 07:28 07:28 WBC 4.9 RBC 2.84 L Hgb 8.4 L Hct 25.6 L MCV 90.3 MCH 29.5 MCHC 32.7 RDW 14.7 Plt Count 306 MPV 8.4 Phosphorus 2.6 Magnesium 1.7 L Active Medications Generic Name Dose Route Start Last Admin Trade Name Freq PRN Reason Stop Dose Admin Albuterol Sulfate 1 puff 08/17/19 14:21 Ventolin Hfa Inhaler - IH Q6H PRN WHEEZING Clotrimazole 1 applic 08/17/19 22:00 08/19/19 21:23 Gyne-Lotrimin - VG 1 applic HS BEBETO Administration Docusate Sodium 100 mg 08/17/19 10:00 08/20/19 09:48 Colace - PO Not Given DAILY BEBETO Ferrous Sulfate 325 mg 08/18/19 10:00 08/20/19 09:48 Feosol - PO 325 mg DAILY BEBETO Administration Ertapenem 1 gm/ Sodium 50 mls @ 100 mls/hr 08/17/19 21:15 08/20/19 09:48 Chloride IVPB 100 mls/hr DAILY BEBETO Administration Multi-Ingredient Ointment 1 applic 08/17/19 22:00 08/20/19 09:48 Zinc Oxide TP 1 applic BID BEBETO Administration ASSESSMENT/PLAN: Ms. Thompson is a 74y/o female with CKD, COPD, and recurrent UTIs who presents with hematuria x 3 days and abdominal pain x 4 days. #hematuria, improved -CT abdomen shows thickened bladder wall, christopher anteriorly -U/S kidneys showed b/l multiple renal cysts -urine cx is negative, but will continue ertapenem until cystoscopy results -urology plans cystoscope with possible bladder biopsies tomorrow #vaginal rash, improved -clotrimazole -zinc oxide #hypomagnesemia -replete -monitor #COPD -albuterol PRN #CKD -Cr and BUN normal #normocytic anemia -iron supplementation -monitor Hb #constipation -colace #elevated TSH -possible hypothyroidism -recheck out patient in a few weeks because could be stress-related #vision changes in right eye -CT head negative for acute changes -can f/u out patient for eye exam DVT Ppx SCDs FEN PO monitor Hb regular diet, add ensure dispo med/surg Visit type - Emergency Visit Emergency Visit: Yes ED Registration Date: 08/16/19 Care time: The patient presented to the Emergency Department on the above date and was hospitalized for further evaluation of their emergent condition. - New Patient This patient is new to me today: No - Critical Care Critical Care patient: No - Discharge Referral Referred to [facility] Med P.C.: No ATTENDING PHYSICIAN STATEMENT I saw and evaluated the patient. I reviewed the resident's note and discussed the case with the resident. I agree with the resident's findings and plan as documented. SUBJECTIVE: OBJECTIVE: ASSESSMENT AND PLAN:
[2019-08-20 15:06] LABS: FREE KAPPA,SERUM 80.3 mg/L (3.3-19.4)
--- NOTE | 2019-08-20 16:18 | PN ---
Teaching Attending Note Name of Resident: Harriett Cardoso ATTENDING PHYSICIAN STATEMENT I saw and evaluated the patient. I reviewed the resident's note and discussed the case with the resident. I agree with the resident's findings and plan as documented. SUBJECTIVE: patient has no abd pain today , no hematuria, nof ever or chills. feels better . OBJECTIVE: NAD, MMM. Cv: RRR, no MRG Lungs: CTAB . Abd: soft, TTP in RLQ, LLQ, and suprapubic area. no rebound tenderness or guarding Ext : No edema or erythema ASSESSMENT AND PLAN: 74 y/o lady with h/o recurrent UTIs, hematuria requiring transfusion , COPD, who presented with hematuria and urgency/dysuria x 1 month . 1- Hematuria with urgency and dyuria: DDx hemorrhagic cystitis, VS bladder cancer. - case was d/w Dr. Claire today. for cystoscopy and bx tomorrow - send cytology from urine sample - cont ertapenem for now - Npo after MN - final read of CT is noted - monitor Hb 2- CKD: Cr at base line. 3-Acute blood loss anemia. on a back ground of chronic anemia - monitor HB and transfuse as needed 4- Mild hypercalcemia: due to increased milk intake. - PTH Nl -Actually SPEP was not ordered only the K/L ratio. will d/w results heme 5- Weight loss. - CT scan reviewed. LLL lung mass 2.4x1.6 cm. stable compared to 12/08. patient and her daughter decline any malignancy of any recent Bx. - will ask ask Onc eval. will ask IR for Bx - R/o bladder ca. for cysto - TSH is only slightly elevated. will repeat as out pt in steady state 6- Dilated CBD 1.[address] scan. will get MRCP 7- Calcified uterine myomas on US. out pt f/u 8- R eye blurriness: chronic . f/u with opth as out pt. 9- DVT px : SCds 10- Nystatin and zinc oxide on genital area . DVT PX: Scds only
[2019-08-20] MEDS: CLOTRIMAZOLE 1% VAGINAL CREAM WITH APPLICATOR 45 GM TUBE VG SCH (22:52)
--- NOTE | 2019-08-21 07:22 | CONSULT ---
Consult - text type - Consultation Consultation Note: Patient seen and examined 74 yo F PMH CKD, COPD, recurrent UTI presents to ED for 1 mo hematuria. pt states that she has been having 1 mo hematuria, weakness, chills, decreased appetite and >20 lb weight loss. she states that she went to her urologist 3 days ago who evaluated her for UTI and gave her macrobid and myrberiq. she also endorses constipation. PAST MEDICAL HISTORY: CKD, COPD, recurrent UTI PAST SURGICAL HISTORY: denies Social History: Smoking: past history, 30 years. quit years ago Alcohol:denies Drugs: denies Allergies Penicillins Allergy (Verified 08/16/19 16:37) shellfish derived Allergy (Verified 08/16/19 16:37) HOME MEDICATIONS: Home Medications Medication Instructions Recorded Albuterol Sulfate Inhaler - 1 puff IH PRN 12/01/18 [Ventolin HFA Inhaler -] Ferrous Sulfate [Iron] 325 mg PO DAILY 12/01/18 Fluticasone Propionate [Flovent 100 mcg IH PRN 12/01/18 Diskus] Sennosides/Docusate Sodium 1 each PO PRN 12/01/18 [Senna-Docusate Sodium Tablet] Pelvic U/S Similar to a CT exam of 12/01/2018 note is made of diffuse urinary bladder wall thickening which may be on the basis of chronic cystitis versus recurrent cystitis. This finding is much better appreciated on CT. Follow-up CT or MRI may be considered. No obvious calculus or mass lesion is identified within the limitations of sonography. A post void residual urinary volume of 190 mL is seen. The prevoid volume was 250 mL. No free intraperitoneal fluid is noted. Several small calcified uterine leiomyomas are again seen. The endometrium is not well visualized on this transabdominal study. No gross endometrial thickening is visualized. The ovaries could not be definitely identified. \ ASSESSMENT/PLAN: In brief, 74 y/o female presenting with wt. loss, hematuria and imaging sowing thickened ,irregular bladder, fibroid uterus, cholelithisis, dilated EHBD, 2, 6cm irregular left lung mass URology to consider cystoscopy/bx, check urine cytology agree with biopsy of left lung mass will follow
[2019-08-21 07:49] LABS: HEMATOCRIT 27.1 % (32.4-45.2); HEMOGLOBIN 8.7 GM/dL (10.7-15.3); MCH 29.2 pg (25.7-33.7); MCHC 32.1 g/dl (32.0-36.0); PLATELET COUNT 334 K/MM3 (134-434); RBC 2.98 M/mm3 (3.60-5.2); RDW 15.1 % (11.6-15.6); WHITE BLOOD COUNT 6.1 K/mm3 (4.0-10.0)
[2019-08-21 08:15] LABS: ALBUMIN 2.5 g/dl (3.4-5.0); BILIRUBIN,TOTAL 0.2 mg/dL (0.2-1); BLOOD UREA NITROGEN 11.3 mg/dL (7-18); CALCIUM 9.5 mg/dL (8.5-10.1); CREATININE 0.9 mg/dL (0.55-1.3); MAGNESIUM 2.1 mg/dL (1.8-2.4); POTASSIUM 4.2 mmol/L (3.5-5.1); TOT PROT 6.2 g/dl (6.4-8.2)
[2019-08-21] MEDS: ERTAPENEM SODIUM 1 GM in SODIUM CHLORIDE 50 ML IVPB SCH ×2 (08:55→09:01)
[2019-08-21] MEDS: FERROUS SO4 325 MG TABLET (FP) PO SCH ×2 (08:55→09:01)
[2019-08-21] MEDS: DOCUSATE SODIUM 100 MG CAPSULE (FP) PO SCH (09:01)
[2019-08-21] MEDS: ZINC OXIDE 20% TOPICAL OINTMENT 30 GM TUBE TP SCH ×2 (09:01→22:43)
[2019-08-21] MEDS ORDERED: MIDAZOLAM HCL 2 MG/2 ML SINGLE DOSE VIAL ONE (11:03)
[2019-08-21] MEDS ORDERED: fentaNYL CITRATE 250 MCG/5 ML VIAL ONE (11:03)
[2019-08-21] MEDS ORDERED: ONDANSETRON 4 MG/2 ML VIAL IVPUSH PRN ×2 (12:45→15:12)
[2019-08-21] MEDS ORDERED: GENTAMICIN 80MG PREMIX BAG IVPB ONE (12:45)
[2019-08-21] MEDS ORDERED: ALBUTEROL SO4 8 GM HFA INHALER IH PRN (15:12)
--- NOTE | 2019-08-21 15:18 | OP ---
DATE OF OPERATION: 08/21/2019 PREOPERATIVE DIAGNOSIS: Gross hematuria. POSTOPERATIVE DIAGNOSIS: Gross hematuria. PROCEDURE: Cystoscopy with bladder biopsies and irrigation of bladder and fulguration of bleeding. DESCRIPTION OF PROCEDURE: Patient was brought into the operating room. Timeout was performed. A single dose of gentamicin 60 mg was administered. Patient was then carefully placed in lithotomy with SCDs on the lower extremities and prepped and draped in the usual sterile fashion. A 23-Telugu cystoscope was inserted. Patient's bladder was thoroughly examined. Of note, there were two ureteral orifices identified on the right side. There were no orifices seen on the left side. There were areas of the mucosa which showed numerous prominent blood vessels that were also friable and bled easily as bladder was distended. There was no distinct bladder mass identified, and in fact, the bleeding areas did not appear to be tumors, but more likely to be some form of cystitis. It should also be noted that the patient had a rather small-capacity bladder. Confirming that both orifices on the right side were in fact connected to the ureter, a Sensor wire was placed into each and easily advanced proximally. This could not be done on the left side, since no orifice was identified on that side. Cold-punch biopsies were taken from the right lateral wall, as well as from the posterior wall biopsy sites, as well as a number of other vessels were fulgurated. Patient continued to have some oozing, even after the procedure, although there was no significant, major bleeding noted. A 20-Telugu Feliz was left to straight drainage. Our recommendation would be to remove the Feliz in 24 hours, to push fluids on this patient. If she continues to bleed, I would start her on Amicar a loading dose of 3 g to be followed by 2 g IV or p.o. q.6 hours. We will await results of the biopsies, although I suspect they will not show any tumor pathology. MD SUSAN CRAWFORD/[id number] MTDD
--- NOTE | 2019-08-21 15:33 | PN ---
Teaching Attending Note Name of Resident: Harriett Cardoso ATTENDING PHYSICIAN STATEMENT I saw and evaluated the patient. I reviewed the resident's note and discussed the case with the resident. I agree with the resident's findings and plan as documented. SUBJECTIVE: seen after cystoscopy in recovery room. feels tired. events noted for hypotensive to 80s and hypothermia after procedrue. she is still in recovery room. BC was just drawn. per anesthesiologist, no events during procedure. OBJECTIVE: NAD, MMM. Analisa hugger on . BP 96/40. HR 70s Cv: RRR, no MRG Lungs: CTAB . Abd: soft, NT, ND , nl BS . moss in with bloody urine in bag ( light red ) Ext : No edema or erythema ASSESSMENT AND PLAN: 74 y/o lady with h/o recurrent UTIs, hematuria requiring transfusion , COPD, who presented with hematuria and urgency/dysuria x 1 month . 1- Hematuria with urgency and dyuria: DDx hemorrhagic cystitis, VS bladder cancer. - Cystoscopy today with generalized bleeding form the mucosa . Bx were taken. 2 ureteral orifices on R side, none on left. - Hypotensive and hypothermic just after the procedure. monitor closely. BP improved , received IVF. CBC pending - follow urine cytology - send blood cx - cont ertapenem for now( day 6 total of abx. ) , especially with the hypothermia . U cx neg . - Transfuse as needed . - if bleeding worsens, or HB drops further , will be started on Amicar ( 3 g x 1 IV then 2 g po or IV q 6h) - team spoke to daughter. No hx of radiation to bladder or adjacent organs , no h/o cyclophosphamide use 2- CKD: Cr at base line. 3-Acute blood loss anemia. - monitor HB and transfuse as needed - Amicar as above 4- Mild hypercalcemia: due to increased milk intake. - PTH Nl - kappa/Lamda ration is slightly elevated. Spoke to Dr. Frost, a SPEP, UPEP, immunofixation were recommended. will order 5- Weight loss. - LLL lung mass 2.4x1.6 cm. patient and daughter agreed to Lung bx - appreciate dr. Frost input - R/o bladder Ca. follow bx - TSH is only slightly elevated. will repeat as out pt in steady state 6- Dilated CBD 1.[address] scan. MRCP was done . follow read 7- Calcified uterine myomas on US. out pt f/u 8- R eye blurriness: chronic . f/u with opth as out pt. 9- DVT px : SCds 10- Nystatin and zinc oxide on genital area . DVT PX: Scds only
--- NOTE | 2019-08-21 15:52 | PN ---
Physical Exam: SUBJECTIVE: Patient seen and examined. She denies hematuria or abdominal pain. She reports vaginal rash is not itching or painful. She denies discharge. Appetite is normal. OBJECTIVE: Vital Signs Period Temp Pulse Resp BP Sys/Palma Pulse Ox Last 24 Hr 97.9 F-98.6 F 69-105 13-22 89-122/49-88 97-100 GENERAL: The patient is awake, alert, and fully oriented, in no acute distress. HEAD: Normal with no signs of trauma. EYES: PERRL, extraocular movements intact, conjunctiva clear. ENT: Ears normal, nares patent, moist mucous membranes. NECK: Trachea midline, full range of motion LUNGS: Clear to auscultation bilaterally HEART: Regular rate and rhythm, S1, S2 without murmur ABDOMEN: Soft, non-tender, nondistended, normoactive bowel sounds, no guarding EXTREMITIES: Warm, well-perfused, no edema. NEUROLOGICAL: Cranial nerves II through XII grossly intact. Normal speech. PSYCH: Normal mood, normal affect. SKIN: Warm, dry, normal turgor, erythematous rash on inside of thighs near labia , no drainage of rash, small amount of yellowish crusting present near urethral opening Laboratory Results - last 24 hr 08/21/19 08/21/19 06:37 06:37 WBC 6.1 RBC 2.98 L Hgb 8.7 L Hct 27.1 L MCV 91.0 MCH 29.2 MCHC 32.1 RDW 15.1 Plt Count 334 MPV 8.0 Sodium 139 Potassium 4.2 Chloride 107 Carbon Dioxide 27 Anion Gap 5 L BUN 11.3 Creatinine 0.9 Est GFR (CKD-EPI)AfAm 72.49 Est GFR (CKD-EPI)NonAf 62.55 Random Glucose 81 Calcium 9.5 Magnesium 2.1 Total Bilirubin 0.2 AST 13 L ALT 13 Alkaline Phosphatase 77 Total Protein 6.2 L Albumin 2.5 L Active Medications Generic Name Dose Route Start Last Admin Trade Name Freq PRN Reason Stop Dose Admin Albuterol Sulfate 1 puff 08/21/19 15:12 Ventolin Hfa Inhaler - IH Q6H PRN WHEEZING Clotrimazole 1 applic 08/21/19 22:00 Gyne-Lotrimin - VG HS BEBETO Docusate Sodium 100 mg 08/22/19 10:00 Colace - PO DAILY BEB[facility]O Fentanyl 25 mcg 12/31/19 15:12 Sublimaze Injection - IVPUSH [id number] PRN PAIN-PACU ORDER X 4 DOSES ONLY Ferrous Sulfate 325 mg 08/22/19 10:00 Feosol - PO DAILY [facility] Ertapenem 1 gm/ Sodium 50 mls @ 100 mls/hr 08/22/19 10:00 Chloride IVPB DAILY [facility] Multi-Ingredient Ointment 1 applic 08/21/19 22:00 Zinc Oxide TP BID [facility] Ondansetron HCl 4 mg 08/21/19 15:12 Zofran Injection IVPUSH Q6H PRN NAUSEA AND/OR VOMITING ASSESSMENT/PLAN: Ms. Thompson is a 74y/o female with CKD, COPD, and recurrent UTIs who presents with hematuria x 3 days and abdominal pain x 4 days. #hematuria, resolved -cystoscopy showed 2 right ureteral orifices, no left; some mucosal bleeding on right and right-posterior wall; biopsies taken -CT abdomen shows thickened bladder wall, christopher anteriorly -U/S kidneys showed b/l multiple renal cysts -continue ertapenem -if hematuria persists, Amicar loading dose 3g followed by 2g IV or PO Q6H #lung nodule -found on CT 2.6x1.4cm left lung base, not significantly changed from November 2018 -given smoking hx, hematuria, lung biopsy recommended to patient and daughter both of which are in agreement to proceed this admission -lung biopsy #dilated CBD -normal t-bili -MRCP pending #vaginal rash, improved -clotrimazole -zinc oxide #hypomagnesemia, resolved #COPD -albuterol PRN #CKD -Cr and BUN normal #normocytic anemia -iron supplementation -monitor Hb #constipation -colace #elevated TSH -possible hypothyroidism -recheck out patient in a few weeks because could be stress-related #vision changes in right eye -CT head negative for acute changes -can f/u out patient for eye exam DVT Ppx SCDs FEN PO monitor Hb regular diet, add ensure dispo med/surg Visit type - Emergency Visit Emergency Visit: Yes ED Registration Date: 08/16/19 Care time: The patient presented to the Emergency Department on the above date and was hospitalized for further evaluation of their emergent condition. - New Patient This patient is new to me today: No - Critical Care Critical Care patient: No - Discharge Referral Referred to [facility] No ATTENDING PHYSICIAN STATEMENT I saw and evaluated the patient. I reviewed the resident's note and discussed the case with the resident. I agree with the resident's findings and plan as documented. SUBJECTIVE: OBJECTIVE: ASSESSMENT AND PLAN:
[2019-08-21 17:13] LABS: HEMATOCRIT 25.1 % (32.4-45.2); MCHC 31.9 g/dl (32.0-36.0); MEAN CELL VOLUME 90.8 fl (80-96); MEAN PLT VOLUME 8.3 fl (7.5-11.1); PLATELET COUNT 307 K/MM3 (134-434); RBC 2.77 M/mm3 (3.60-5.2); RDW 15.2 % (11.6-15.6); WHITE BLOOD COUNT 8.1 K/mm3 (4.0-10.0)
[2019-08-21] MEDS ORDERED: SODIUM CHLORIDE 500 ML IV STA (18:10)
--- NOTE | 2019-08-21 18:19 | HOSP ---
Subjective - Review of Symptoms Events since last encounter: Patient SBP is in 80s now, hypotermia resolved. - received 1900 cc of IVF after her procedure with 460 of UOP. - will bolus 500 cc now - Hb 8. will give a unit of RBC - Spoke to Dr. Bar, to evaluate patient fro an ICU transfer. She ryan be evaluated by ICU team. Physical Examination Vital Signs: Vital Signs Temperature 98.1 F 08/21/19 17:45 Pulse Rate 8 L 08/21/19 18:00 Respiratory Rate 16 08/21/19 18:00 Blood Pressure 81/49 L 08/21/19 18:00 O2 Sat by Pulse Oximetry (%) 100 08/21/19 18:00 Labs: CBC, BMP 08/21/19 16:40 08/21/19 06:37
--- NOTE | 2019-08-21 19:07 | CONSULT ---
Consultation: REQUESTING PROVIDER: Dr Pacheco CONSULT REQUEST: We have been asked to medically evaluate this patient for post- cystocopy . HISTORY OF PRESENT ILLNESS: Pt is a 74y/o F with PMHx of CKD, COPD, and recurrent UTIs who presented on with hx of hematuria, abdominal pain, and genital pain, now s/p cystoscopy and biopsy with postcystoscopy hypothermia, and hypotension. Pt initally was on the nubia hugger after cystoscopy now T 97.8 1 hour post nubia hugger discontinuation. Pt also has received 3 L of LR s/p cystoscopy to maintain SBP > 80 and MAP >60. Pt has been alert and oriented, making urine, pinkish colored and drained about 640mls post-cystoscopy. Pt on ertapenem, with positive UA on admission following failed outpt macrobid tx. Hx of weight loss from 140>>120>>110 since around 11/2018. Pt being investigated to R/O malignancy (possible bladder), UPEP/SPEP elevated, lung mass on imaging. ICU consulted for hypotension post-cystoscopy, currently fluid responsive. REVIEW OF SYSTEMS: Lower abdominal pain, denies fevers, nausea, cough, SOB, hematochezia PHYSICAL EXAMINATION Vital Signs - 24 hr 08/20/19 08/20/19 08/21/19 21:00 21:33 05:56 Temperature 98.6 F 97.9 F Pulse Rate 87 82 Respiratory 20 20 20 Rate Blood Pressure 110/60 97/56 L O2 Sat by Pulse 100 Oximetry (%) 08/21/19 08/21/19 08/21/19 09:00 09:01 13:58 Temperature 98.1 F Pulse Rate 69 105 H Respiratory 18 18 18 Rate Blood Pressure 90/52 L 122/64 O2 Sat by Pulse 100 99 Oximetry (%) 08/21/19 08/21/19 08/21/19 14:00 14:15 14:30 Temperature Pulse Rate 104 H 84 79 Respiratory 21 H 18 22 H Rate Blood Pressure 120/88 89/65 L 90/59 L O2 Sat by Pulse 97 100 100 Oximetry (%) 08/21/19 08/21/19 08/21/19 14:45 15:00 15:15 Temperature Pulse Rate 81 74 70 Respiratory 20 14 17 Rate Blood Pressure 104/64 102/55 L 94/50 L O2 Sat by Pulse 100 100 100 Oximetry (%) 08/21/19 08/21/19 08/21/19 15:30 15:45 16:00 Temperature Pulse Rate 71 74 81 Respiratory 13 14 14 Rate Blood Pressure 95/49 L 78/44 L 78/41 L O2 Sat by Pulse 100 100 100 Oximetry (%) 08/21/19 08/21/19 08/21/19 16:15 16:30 16:33 Temperature Pulse Rate 83 89 89 Respiratory 14 13 14 Rate Blood Pressure 83/44 L 83/41 L 96/50 L O2 Sat by Pulse 100 100 100 Oximetry (%) 08/21/19 08/21/19 08/21/19 16:43 16:45 17:00 Temperature 97.9 F Pulse Rate 84 87 89 Respiratory 17 18 16 Rate Blood Pressure 100/53 L 98/54 L 96/50 L O2 Sat by Pulse 100 100 100 Oximetry (%) 08/21/19 08/21/19 08/21/19 17:15 17:30 17:45 Temperature 98.1 F Pulse Rate 85 82 82 Respiratory 17 14 17 Rate Blood Pressure 93/60 93/56 L 94/47 L O2 Sat by Pulse 98 96 98 Oximetry (%) 08/21/19 08/21/19 08/21/19 18:00 18:15 18:30 Temperature Pulse Rate 8 L 74 72 Respiratory 16 16 13 Rate Blood Pressure 81/49 L 86/49 L 100/50 L O2 Sat by Pulse 100 100 100 Oximetry (%) 08/21/19 08/21/19 18:45 19:00 Temperature 983 F H Pulse Rate 70 76 Respiratory 20 19 Rate Blood Pressure 89/53 L 91/51 L O2 Sat by Pulse 100 100 Oximetry (%) GENERAL: Awake, alert, and fully oriented, in no acute distress. EYES: Pupils equal, round and reactive to light, extraocular movements intact, sclera anicteric, conjunctiva clear. EARS, NOSE, THROAT: Moist mucous membranes. LUNGS: Breath sounds equal, clear to auscultation bilaterally. No wheezes, and no crackles. HEART: Regular rate and rhythm, normal S1 and S2 without murmur ABDOMEN: Soft, mild suprapubic tenderness, not distended, normoactive bowel sounds Feliz draining pinkish colored urine MUSCULOSKELETAL: Normal range of motion at all joints. No bony deformities or tenderness. No CVA tenderness. LOWER EXTREMITIES: 2+ pulses, warm, well-perfused. No calf tenderness. No peripheral edema. NEUROLOGICAL: Cranial nerves II-XII intact. Normal speech. Gait not observed, moves all extremities PSYCHIATRIC: Cooperative. Appropriate mood and affect. SKIN: Kelloid and surgical scar L shoulder posterior, R chest CBC, BMP 08/21/19 16:40 08/21/19 06:37 Laboratory Results - last 24 hr 08/21/19 08/21/19 08/21/19 06:37 06:37 16:40 WBC 6.1 8.1 RBC 2.98 L 2.77 L Hgb 8.7 L 8.0 L Hct 27.1 L 25.1 L MCV 91.0 90.8 MCH 29.2 29.0 MCHC 32.1 31.9 L RDW 15.1 15.2 Plt Count 334 307 MPV 8.0 8.3 Sodium 139 Potassium 4.2 Chloride 107 Carbon Dioxide 27 Anion Gap 5 L BUN 11.3 Creatinine 0.9 Est GFR (CKD-EPI)AfAm 72.49 Est GFR (CKD-EPI)NonAf 62.55 Random Glucose 81 Calcium 9.5 Magnesium 2.1 Total Bilirubin 0.2 AST 13 L ALT 13 Alkaline Phosphatase 77 Total Protein 6.2 L Albumin 2.5 L Blood Type Antibody Screen Crossmatch 08/21/19 16:40 WBC RBC Hgb Hct MCV MCH MCHC RDW Plt Count MPV Sodium Potassium Chloride Carbon Dioxide Anion Gap BUN Creatinine Est GFR (CKD-EPI)AfAm Est GFR (CKD-EPI)NonAf Random Glucose Calcium Magnesium Total Bilirubin AST ALT Alkaline Phosphatase Total Protein Albumin Blood Type O POSITIVE Antibody Screen Negative Crossmatch See Detail Active Medications Generic Name Dose Route Start Last Admin Trade Name Freq PRN Reason Stop Dose Admin Albuterol Sulfate 1 puff 08/21/19 15:12 Ventolin Hfa Inhaler - IH Q6H PRN WHEEZING Clotrimazole 1 applic 08/21/19 22:00 Gyne-Lotrimin - VG HS BEBETO Docusate Sodium 100 mg 08/22/19 10:00 Colace - PO DAILY [facility] Fentanyl 25 mcg 08/21/19 15:12 Sublimaze Injection - IVPUSH [id number] PRN PAIN-PACU ORDER X 4 DOSES ONLY Ferrous Sulfate 325 mg 08/22/19 10:00 Feosol - PO DAILY [facility] Ertapenem 1 gm/ Sodium 50 mls @ 100 mls/hr 08/22/19 10:00 Chloride IVPB DAILY [facility] Sodium Chloride 500 mls @ 500 mls/hr 08/21/19 18:10 Normal Saline - IV 08/21/19 19:09 ASDIR STA Multi-Ingredient Ointment 1 applic 08/21/19 22:00 Zinc Oxide TP BID [facility] Ondansetron HCl 4 mg 08/21/19 15:12 Zofran Injection IVPUSH Q6H PRN NAUSEA AND/OR VOMITING Current Medications Albuterol Sulfate (Ventolin Hfa Inhaler -) 1 puff IH Q6H PRN PRN Reason: WHEEZING Clotrimazole (Gyne-Lotrimin -) 1 applic VG HS BEBETO Docusate Sodium (Colace -) 100 mg PO DAILY [facility] Fentanyl (Sublimaze Injection -) 25 mcg IVPUSH [id number] PRN PRN Reason: PAIN-PACU ORDER X 4 DOSES ONLY Ferrous Sulfate (Feosol -) 325 mg PO DAILY [facility] Ertapenem 1 gm/ Sodium (Chloride) 50 mls @ 100 mls/hr IVPB DAILY [facility] Multi-Ingredient Ointment (Zinc Oxide) 1 applic TP BID [facility] Ondansetron HCl (Zofran Injection) 4 mg IVPUSH Q6H PRN PRN Reason: NAUSEA AND/OR VOMITING Ambulatory Orders Albuterol Sulfate Inhaler - [Ventolin HFA Inhaler -] 1 puff IH QID PRN 12/01/18 Ferrous Sulfate [Iron] 325 mg PO DAILY 12/01/18 Sennosides/Docusate Sodium [Senna-Docusate Sodium Tablet] 2 each PO DAILY Mirabegron [Myrbetriq] 25 mg DAILY 08/17/19 Multivitamin [Multiple Vitamins] 1 each DAILY 08/17/19 cystoscopy 08/21: showed 2 right ureteral orifices, no left; some mucosal bleeding on right and right-posterior wall; biopsies taken CTAP 08/17: Cholelithiasis, with dilated extrabiliary tree, no obvious obstruction, thickened irregular urinary bladder wall, christopher anteriorly, Irregular L basilar Lung mass 2.6x1.4cm left lung base, not significantly changed from November 2018, possibility of malignancy cannot be ruled out, fibroid uterus Renal U/S 08/17 :Morphologically nl kidneys with b/l multiple renal cysts MRCP: 08/21: Numerous kidney cysts. Largest cystlower pole of L kidney ( 3.3x2.5cm), gall bladder with numerous stones and distension. Distension of CBD up to 10mmin prox CBD and mid 14mm, distal 10mm. No evidence for choledocholithiasis, however there is cholelithiasis. Advise f/u ERCP with stenting or cholecystectomy with stenting. ASSESSMENT/PLAN: Pt is a 74y/o F with PMHx of CKD, COPD, and recurrent UTIs who presented with hx of hematuria, abdominal pain, and genital pain, now s/p cystoscopy and noted to have hypothermia, and hypotension. Neuro Pt alert and oriented x3 Cont to monitor Pulm #COPD #Lung nodule albuterol PRN Cont supplement o2 to keep sats above 90% For follow up for lung biopsy Cardio Post cystocopy hypotension Cont aggressive hydration with LR, boluses as needed, cotn maintenance at 125/hr Renal/ #Hematuria #CKD #vaginal rash clotrimazole zinc oxide S/p cystoscopy with biopsy still with hematuria Pending transfusion Cont aggressive hydration continue ertapenem if hematuria persists, Amicar loading dose 3g followed by 2g IV or PO Q6H per urology GI #dilated CBD #constipation normal t-bili MRCP -prelim report above colace Hemonc #normocytic anemia cont iron supplementation monitor Hb, pending transfusion Endo: #elevated TSH R/O sick euthyroid syndrome Follow up as outpt Opthalmology: #vision changes in right eye CT head negative for acute changes outpatient f/u DVT Ppx, hold off chemical ppx SCDs Dispo: We will continue to follow the patient. Thank you for this consultative opportunity. Visit type - Emergency Visit Emergency Visit: Yes ED Registration Date: 08/16/19 Care time: The patient presented to the Emergency Department on the above date and was hospitalized for further evaluation of their emergent condition. - New Patient This patient is new to me today: Yes Date on this admission: 08/21/19 - Critical Care Critical Care patient: Yes Total Critical Care Time (in minutes): 37 Critical Care Statement: The care of this patient involved high complexity decision making to prevent further life threatening deterioration of the patient 's condition and/or to evaluate & treat vital organ system(s) failure or risk of failure. ATTENDING PHYSICIAN STATEMENT I saw and evaluated the patient. I reviewed the resident's note and discussed the case with the resident. I agree with the resident's findings and plan as documented. SUBJECTIVE: OBJECTIVE: ASSESSMENT AND PLAN:
[2019-08-21] MEDS ORDERED: CLOTRIMAZOLE 1% VAGINAL CREAM WITH APPLICATOR 45 GM TUBE VG SCH (22:00)
[2019-08-21] MEDS ORDERED: ACETAMINOPHEN 1000 MG/100 ML VIAL (NON FORMULARY) IVPB PRN (22:57)
[2019-08-22] MEDS ORDERED: LACTATED RINGERS SOLUTION 1,000 ML/1,000 ML INFUS.BAG IV SCH (04:30)
[2019-08-22 07:00] LABS: BASO % 0.2 % (0-2.0); EOS % 0.4 % (0-4.5); HEMATOCRIT 31.3 % (32.4-45.2); HEMOGLOBIN 10.1 GM/dL (10.7-15.3); LYMPH % 16.6 % (8-40); MCH 28.7 pg (25.7-33.7); MCHC 32.4 g/dl (32.0-36.0); MEAN CELL VOLUME 88.7 fl (80-96); MEAN PLT VOLUME 8.5 fl (7.5-11.1); MONO % 9.9 % (3.8-10.2); NEUT % 72.9 % (42.8-82.8); PLATELET COUNT 321 K/MM3 (134-434); RBC 3.53 M/mm3 (3.60-5.2); RDW 15.9 % (11.6-15.6); WHITE BLOOD COUNT 9.1 K/mm3 (4.0-10.0)
--- NOTE | 2019-08-22 07:12 | PN ---
Physical Exam: SUBJECTIVE: Patient seen and examined at bedside. No acute events overnight. OBJECTIVE: Vital Signs Period Temp Pulse Resp BP Sys/Palma Pulse Ox Last 24 Hr 97.7 F-983 F 8-105 13-22 78-122/41-88 96-100 GENERAL: Awake, alert, and fully oriented, in no acute distress. EYES: Pupils equal, round and reactive to light, extraocular movements intact, sclera anicteric, conjunctiva clear. EARS, NOSE, THROAT: Moist mucous membranes. LUNGS: Breath sounds equal, clear to auscultation bilaterally. No wheezes, and no crackles. HEART: Regular rate and rhythm, normal S1 and S2 without murmur ABDOMEN: Soft, mild suprapubic tenderness, not distended, normoactive bowel sounds Moss draining pinkish colored urine MUSCULOSKELETAL: Normal range of motion at all joints. No bony deformities or tenderness. No CVA tenderness. LOWER EXTREMITIES: 2+ pulses, warm, well-perfused. No calf tenderness. No peripheral edema. NEUROLOGICAL: Cranial nerves II-XII intact. Normal speech. Gait not observed, moves all extremities PSYCHIATRIC: Cooperative. Appropriate mood and affect. SKIN: Kelloid and surgical scar L shoulder posterior, R chest Laboratory Results - last 24 hr 08/21/19 08/21/19 08/21/19 06:37 06:37 16:40 WBC 6.1 8.1 RBC 2.98 L 2.77 L Hgb 8.7 L 8.0 L Hct 27.1 L 25.1 L MCV 91.0 90.8 MCH 29.2 29.0 MCHC 32.1 31.9 L RDW 15.1 15.2 Plt Count 334 307 MPV 8.0 8.3 Absolute Neuts (auto) Neutrophils % Lymphocytes % Monocytes % Eosinophils % Basophils % Nucleated RBC % Sodium 139 Potassium 4.2 Chloride 107 Carbon Dioxide 27 Anion Gap 5 L BUN 11.3 Creatinine 0.9 Est GFR (CKD-EPI)AfAm 72.49 Est GFR (CKD-EPI)NonAf 62.55 Random Glucose 81 Calcium 9.5 Magnesium 2.1 Total Bilirubin 0.2 AST 13 L ALT 13 Alkaline Phosphatase 77 Total Protein 6.2 L Albumin 2.5 L Blood Type Antibody Screen Crossmatch 08/21/19 08/22/19 16:40 06:00 WBC 9.1 RBC 3.53 L Hgb 10.1 L Hct 31.3 L D MCV 88.7 MCH 28.7 MCHC 32.4 RDW 15.9 H Plt Count 321 MPV 8.5 Absolute Neuts (auto) 6.6 Neutrophils % 72.9 Lymphocytes % 16.6 Monocytes % 9.9 Eosinophils % 0.4 D Basophils % 0.2 Nucleated RBC % 0 Sodium Potassium Chloride Carbon Dioxide Anion Gap BUN Creatinine Est GFR (CKD-EPI)AfAm Est GFR (CKD-EPI)NonAf Random Glucose Calcium Magnesium Total Bilirubin AST ALT Alkaline Phosphatase Total Protein Albumin Blood Type O POSITIVE Antibody Screen Negative Crossmatch See Detail Active Medications Acetaminophen (Ofirmev Injection -) 1,000 mg IVPB Q6H PRN PRN Reason: PAIN LEVEL 7 - 10 Albuterol Sulfate (Ventolin Hfa Inhaler -) 1 puff IH Q6H PRN PRN Reason: WHEEZING Clotrimazole (Gyne-Lotrimin -) 1 applic VG HS [facility] Last Admin: 08/21/19 21:30 Dose: 1 applic Docusate Sodium (Colace -) 100 mg PO DAILY [facility] Last Admin: 08/22/19 09:40 Dose: 100 mg Fentanyl (Sublimaze Injection -) 25 mcg IVPUSH [id number] PRN PRN Reason: PAIN-PACU ORDER X 4 DOSES ONLY Ferrous Sulfate (Feosol -) 325 mg PO DAILY [facility] Last Admin: 08/22/19 09:40 Dose: 325 mg Ertapenem 1 gm/ Sodium (Chloride) 50 mls @ 100 mls/hr IVPB DAILY [facility] Last Admin: 08/22/19 09:41 Dose: 100 mls/hr Lactated Ringer's (Lactated Ringers Solution) 1,000 ml in 1,000 mls @ 100 mls/ hr IV ASDIR [facility] Last Admin: 08/22/19 06:43 Dose: 100 mls/hr Magnesium Oxide (Mag-Ox -) 400 mg PO BID [facility] Stop: 08/22/19 22:01 Last Admin: 08/22/19 09:41 Dose: 400 mg Multi-Ingredient Ointment (Zinc Oxide) 1 applic TP BID [facility] Last Admin: 08/22/19 09:42 Dose: 1 applic Ondansetron HCl (Zofran Injection) 4 mg IVPUSH Q6H PRN PRN Reason: NAUSEA AND/OR VOMITING ASSESSMENT/PLAN: 74y/o F with PMHx of CKD, COPD, and recurrent UTIs who presented with hx of hematuria, abdominal pain, and genital pain, now s/p cystoscopy and noted to have hypothermia and hypotension given 3L bolus and 1U pRBC. Neuro -Pt alert and oriented x3 -Cont to monitor Pulm COPD Lung nodule, r/o malignancy -Albuterol PRN -Cont supplement O2 to keep sats above 90% -Lung For follow up for lung biopsy CV Post-cystoscopy hypotension -Remains HD stable, responsive to fluids -Maintain SBP >80 and MAP >60 -LR @100, boluses PRN Renal/ Hematuria, s/p cystoscopy; r/o malignancy vs. hemorrhagic cystitis CKD Vaginal rash Hypercalcemia -Still with hematuria, moss in place -Cr at baseline -Clotrimazole and Zinc Oxide -Continue Ertapenem 1gm QD per uro -Per uro, if hematuria persists, Amicar loading dose 3g followed by 2g IV or PO Q6H per urology -Per heme, SPEP/UPEP/immunofixation ordered ID Post-cystoscopy Hypothermia, ? urinary source -Cont Ertapenem for now (Day 7 of IV abx) -BCx pending -UCx (08/16) neg GI Dilated CBD on CTAP Constipation -MRCP pending final read -Cont Colace 100 QD Heme-Onc Normocytic anemia -cont iron supplementation FeSO5 325 QD -s/p 1U pRBC post-cystoscopy; Hgb improved 8 --> 10.1 -repeat CBC in AM Endo Elevated TSH, r/o sick euthyroid syndrome -Follow up as outpt Opthalmology Vision changes in right eye -CT head negative for acute changes -Outpatient f/u Prophylaxis DVT: SCDs, hold chemical AC Dispo: We will continue to follow the patient. Thank you for this consultative opportunity. Visit type - Emergency Visit Emergency Visit: Yes ED Registration Date: 08/16/19 Care time: The patient presented to the Emergency Department on the above date and was hospitalized for further evaluation of their emergent condition. - New Patient This patient is new to me today: Yes Date on this admission: 08/22/19 - Critical Care Critical Care patient: Yes Total Critical Care Time (in minutes): 35 Critical Care Statement: The care of this patient involved high complexity decision making to prevent further life threatening deterioration of the patient 's condition and/or to evaluate & treat vital organ system(s) failure or risk of failure. ATTENDING PHYSICIAN STATEMENT I saw and evaluated the patient. I reviewed the resident's note and discussed the case with the resident. I agree with the resident's findings and plan as documented. SUBJECTIVE: OBJECTIVE: ASSESSMENT AND PLAN:
[2019-08-22 07:32] LABS: ALBUMIN 2.2 g/dl (3.4-5.0); BILIRUBIN,TOTAL 0.6 mg/dL (0.2-1); BLOOD UREA NITROGEN 8.4 mg/dL (7-18); CALCIUM 8.9 mg/dL (8.5-10.1); CREATININE 0.7 mg/dL (0.55-1.3); MAGNESIUM 1.5 mg/dL (1.8-2.4); PHOSPHOROUS 3.4 mg/dL (2.5-4.9); POTASSIUM 4.6 mmol/L (3.5-5.1); TOT PROT 5.6 g/dl (6.4-8.2)
[2019-08-22] MEDS ORDERED: MAGNESIUM SULF 50% (8.12 MEQ/2 ML-1 GM VIAL) IVPB ONE (08:21)
[2019-08-22] MEDS ORDERED: PT OWN MED DRAWER 7, Y5N ONE ×2 (09:38→12:18)
[2019-08-22] MEDS: ZINC OXIDE 20% TOPICAL OINTMENT 30 GM TUBE TP SCH ×2 (09:42→21:25)
--- NOTE | 2019-08-22 09:42 | PN ---
Teaching Attending Note Name of Resident: Mian Beth ATTENDING PHYSICIAN STATEMENT I saw and evaluated the patient. I reviewed the resident's note and discussed the case with the resident. I agree with the resident's findings and plan as documented. SUBJECTIVE: Patient is feeling better with no acute distress, with no nausea or vomiting. No further bleed noted. OBJECTIVE: Vital Signs Temperature 97.6 F 08/22/19 06:00 Pulse Rate 59 L 08/22/19 08:00 Respiratory Rate 18 08/22/19 08:00 Blood Pressure 122/62 08/22/19 08:00 O2 Sat by Pulse Oximetry (%) 100 08/21/19 20:39 GENERAL: The patient is awake, alert, and fully oriented, in no acute distress. HEAD: Normal with no signs of trauma. EYES: PERRL, extraocular movements intact, sclera anicteric, conjunctiva clear. ENT: Ears normal, oropharynx clear without exudates, moist mucous membranes. NECK: Trachea midline, full range of motion, supple. LUNGS: Breath sounds equal, clear to auscultation bilaterally, no wheezes, no crackles, no accessory muscle use. HEART: Regular rate and rhythm, S1, S2 without murmur, rub or gallop. ABDOMEN: Soft, nontender, nondistended, normoactive bowel sounds, no guarding, no rebound, no hepatosplenomegaly, no masses. EXTREMITIES: 2+ pulses, warm, well-perfused, no edema. NEUROLOGICAL: Cranial nerves II through XII grossly intact. Normal speech, gait not observed. PSYCH: Normal mood, normal affect. SKIN: Warm, dry, normal turgor, no rashes or lesions noted CBCD WBC 9.1 K/mm3 (4.0-10.0) 08/22/19 06:00 RBC 3.53 M/mm3 (3.60-5.2) L 08/22/19 06:00 Hgb 10.1 GM/dL (10.7-15.3) L 08/22/19 06:00 Hct 31.3 % (32.4-45.2) L D 08/22/19 06:00 MCV 88.7 fl (80-96) 08/22/19 06:00 MCHC 32.4 g/dl (32.0-36.0) 08/22/19 06:00 RDW 15.9 % (11.6-15.6) H 08/22/19 06:00 Plt Count 321 K/MM3 (134-434) 08/22/19 06:00 MPV 8.5 fl (7.5-11.1) 08/22/19 06:00 CMP Sodium 142 mmol/L (136-145) 08/22/19 06:00 Potassium 4.6 mmol/L (3.5-5.1) 08/22/19 06:00 Chloride 108 mmol/L (98-107) H 08/22/19 06:00 Carbon Dioxide 28 mmol/L (21-32) 08/22/19 06:00 Anion Gap 6 MMOL/L (8-16) L 08/22/19 06:00 BUN 8.4 mg/dL (7-18) 08/22/19 06:00 Creatinine 0.7 mg/dL (0.55-1.3) 08/22/19 06:00 Random Glucose 82 mg/dL (74-106) 08/22/19 06:00 Calcium 8.9 mg/dL (8.5-10.1) 08/22/19 06:00 Total Bilirubin 0.6 mg/dL (0.2-1) 08/22/19 06:00 AST 14 U/L (15-37) L 08/22/19 06:00 ALT 11 U/L (13-61) L 08/22/19 06:00 Alkaline Phosphatase 68 U/L (45-117) 08/22/19 06:00 Total Protein 5.6 g/dl (6.4-8.2) L 08/22/19 06:00 Albumin 2.2 g/dl (3.4-5.0) L 08/22/19 06:00 Current Medications Generic Name Dose Route Start Last Admin Trade Name Freq PRN Reason Stop Dose Admin Acetaminophen 1,000 mg 08/21/19 22:57 Ofirmev Injection - IVPB Q6H PRN PAIN LEVEL 7 - 10 Albuterol Sulfate 1 puff 08/21/19 15:12 Ventolin Hfa Inhaler - IH Q6H PRN WHEEZING Clotrimazole 1 applic 08/21/19 22:00 08/21/19 21:30 Gyne-Lotrimin - VG 1 applic HS BEBETO Administration Docusate Sodium 100 mg 08/22/19 10:00 Colace - PO DAILY [facility] Fentanyl 25 mcg 08/21/19 15:12 Sublimaze Injection - IVPUSH [id number] PRN PAIN-PACU ORDER X 4 DOSES ONLY Ferrous Sulfate 325 mg 08/22/19 10:00 Feosol - PO DAILY [facility] Ertapenem 1 gm/ Sodium 50 mls @ 100 mls/hr 08/22/19 10:00 Chloride IVPB DAILY [facility] Lactated Ringer's 1,000 ml in 1,000 mls @ 100 mls/hr 08/22/19 04:30 08/22/19 06:43 Lactated Ringers Solution IV 100 mls/hr ASDIR [facility] Administration Magnesium Oxide 400 mg 08/22/19 10:00 Mag-Ox - PO 08/22/19 22:01 BID [facility] Multi-Ingredient Ointment 1 applic 08/21/19 22:00 08/21/19 22:43 Zinc Oxide TP 1 applic BID BEB[facility]O Administration Ondansetron HCl 4 mg 08/21/19 15:12 Zofran Injection IVPUSH Q6H PRN NAUSEA AND/OR VOMITING Home Medications Medication Instructions Recorded Albuterol Sulfate Inhaler - 1 puff IH QID PRN 12/01/18 [Ventolin HFA Inhaler -] Ferrous Sulfate [Iron] 325 mg PO DAILY 12/01/18 Sennosides/Docusate Sodium 2 each PO DAILY 12/01/18 [Senna-Docusate Sodium Tablet] Mirabegron [Myrbetriq] 25 mg DAILY 08/17/19 Multivitamin [Multiple Vitamins] 1 each DAILY 08/17/19 Microbiology 08/16/19 20:04 Urine - Urine Clean Catch Urine Culture - Final NO GROWTH OBTAINED 08/16/19 16:58 Urine - Urine Clean Catch Urine Culture - Final NO GROWTH OBTAINED ASSESSMENT AND PLAN: Patient is a 74yof, with Pmhx of recurrent UTIs, hematuria requiring transfusion , COPD, who presented with hematuria and urgency/dysuria x 1 month . # POD#1 cystoscopy due to having hematuria with urgency and dyuria r/o bladder cancer.;follow bx result, 2 ureteral orifices on R side, none on left. follow urine cytology , blood cx . On ertapenem day 7, U cx neg so far. Transfuse as needed . a sper urologist if bleeding worsens, or HB drops further, will be started on Amicar ( 3 g x 1 IV then 2 g po or IV q 6h) # CKD: Cr at base line. #Acute blood loss anemia. stable now, monitor H/H , transfuse as needed # Mild hypercalcemia: due to increased milk intake. PTH Nl, follow kappa/ Lamda ration is slightly elevated. # Weight loss: LLL lung mass 2.4x1.6 cm. patient and daughter agreed to Lung bx , can be done as an outpatient # TSH is only slightly elevated. follow up with electronics technician apprentice. # Dilated CBD 1.[address] scan. MRCP was done . No choledecholithiasis, no gross mass noted. follow up with GI as an outpatient. 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 out pt f/u # R eye blurriness: chronic. F/U with opth as out pt. DVT px : SCds Nystatin and zinc oxide on genital area .
[2019-08-22] MEDS ORDERED: FERROUS SO4 325 MG TABLET (FP) PO SCH (10:00)
[2019-08-22] MEDS ORDERED: DOCUSATE SODIUM 100 MG CAPSULE (FP) PO SCH (10:00)
[2019-08-22] MEDS ORDERED: MAGNESIUM OXIDE 400 MG TABLET (FP) PO SCH ×2 (10:00→22:00)
[2019-08-22] MEDS ORDERED: ERTAPENEM SODIUM 1 GM in SODIUM CHLORIDE 50 ML IVPB SCH (10:00)
--- NOTE | 2019-08-22 10:02 | PN ---
Teaching Attending Note Name of Resident: Rita Varma ATTENDING PHYSICIAN STATEMENT I saw and evaluated the patient. I reviewed the resident's note and discussed the case with the resident. I agree with the resident's findings and plan as documented. SUBJECTIVE: Patient seen and examined in the ICU. Awake and alert. Denies CP or SOB. Still with some hematuria. Appropriate rise in H&H after transfusion. Intake & Output 08/19/19 08/20/19 08/21/19 08/22/19 23:59 23:59 23:59 23:59 Intake Total 450 1050 3600 1200 Output Total 1300 1000 Balance 450 1050 2300 200 Weight 118 lb 121 lb Last Vital Signs Temp Pulse Resp BP Pulse Ox 97.6 F 59 L 18 122/62 100 08/22/19 06:00 08/22/19 08:00 08/22/19 08:00 08/22/19 08:00 08/21/19 20:39 Active Medications Acetaminophen (Ofirmev Injection -) 1,000 mg IVPB Q6H PRN PRN Reason: PAIN LEVEL 7 - 10 Albuterol Sulfate (Ventolin Hfa Inhaler -) 1 puff IH Q6H PRN PRN Reason: WHEEZING Clotrimazole (Gyne-Lotrimin -) 1 applic VG HS [facility] Last Admin: 08/21/19 21:30 Dose: 1 applic Docusate Sodium (Colace -) 100 mg PO DAILY [facility] Last Admin: 08/22/19 09:40 Dose: 100 mg Fentanyl (Sublimaze Injection -) 25 mcg IVPUSH [id number] PRN PRN Reason: PAIN-PACU ORDER X 4 DOSES ONLY Ferrous Sulfate (Feosol -) 325 mg PO DAILY [facility] Last Admin: 08/22/19 09:40 Dose: 325 mg Ertapenem 1 gm/ Sodium (Chloride) 50 mls @ 100 mls/hr IVPB DAILY [facility] Last Admin: 08/22/19 09:41 Dose: 100 mls/hr Lactated Ringer's (Lactated Ringers Solution) 1,000 ml in 1,000 mls @ 100 mls/ hr IV ASDIR [facility] Last Admin: 08/22/19 06:43 Dose: 100 mls/hr Magnesium Oxide (Mag-Ox -) 400 mg PO BID [facility] Stop: 08/22/19 22:01 Last Admin: 08/22/19 09:41 Dose: 400 mg Multi-Ingredient Ointment (Zinc Oxide) 1 applic TP BID [facility] Last Admin: 08/22/19 09:42 Dose: 1 applic Ondansetron HCl (Zofran Injection) 4 mg IVPUSH Q6H PRN PRN Reason: NAUSEA AND/OR VOMITING GENERAL: Awake, alert, and fully oriented, in no acute distress. EYES: sclera anicteric, conjunctiva clear. EARS, NOSE, THROAT: Moist mucous membranes. LUNGS: Breath sounds equal, clear to auscultation bilaterally. No wheezes, and no crackles. HEART: Regular rate and rhythm, normal S1 and S2 without murmur ABDOMEN: Soft, non-tender, not distended, normoactive bowel sounds MUSCULOSKELETAL: Normal range of motion at all joints. No bony deformities or tenderness. No CVA tenderness. LOWER EXTREMITIES: 2+ pulses, warm, well-perfused. No calf tenderness. No peripheral edema. NEUROLOGICAL: Non-focal PSYCHIATRIC: Cooperative. Appropriate mood and affect. SKIN: Kelloid and surgical scar L shoulder posterior, R chest Laboratory Results - last 24 hr 08/21/19 08/21/19 08/22/19 16:40 16:40 06:00 WBC 8.1 9.1 RBC 2.77 L 3.53 L Hgb 8.0 L 10.1 L Hct 25.1 L 31.3 L D MCV 90.8 88.7 MCH 29.0 28.7 MCHC 31.9 L 32.4 RDW 15.2 15.9 H Plt Count 307 321 MPV 8.3 8.5 Absolute Neuts (auto) 6.6 Neutrophils % 72.9 Lymphocytes % 16.6 Monocytes % 9.9 Eosinophils % 0.4 D Basophils % 0.2 Nucleated RBC % 0 Sodium Potassium Chloride Carbon Dioxide Anion Gap BUN Creatinine Est GFR (CKD-EPI)AfAm Est GFR (CKD-EPI)NonAf Random Glucose Calcium Phosphorus Magnesium Total Bilirubin AST ALT Alkaline Phosphatase Total Protein Albumin Blood Type O POSITIVE Antibody Screen Negative Crossmatch See Detail 08/22/19 06:00 WBC RBC Hgb Hct MCV MCH MCHC RDW Plt Count MPV Absolute Neuts (auto) Neutrophils % Lymphocytes % Monocytes % Eosinophils % Basophils % Nucleated RBC % Sodium 142 Potassium 4.6 Chloride 108 H Carbon Dioxide 28 Anion Gap 6 L BUN 8.4 Creatinine 0.7 Est GFR (CKD-EPI)AfAm 98.23 Est GFR (CKD-EPI)NonAf 84.75 Random Glucose 82 Calcium 8.9 Phosphorus 3.4 Magnesium 1.5 L Total Bilirubin 0.6 AST 14 L ALT 11 L Alkaline Phosphatase 68 Total Protein 5.6 L Albumin 2.2 L Blood Type Antibody Screen Crossmatch ASSESSMENT/PLAN: Acute Anemia due to Hematuria CKD COPD Recurrent UTIs S/P Cystoscopy 2.6 x 1.4 LLL Lung mass: no gross change since 11/2018 Normal transfusion thresholds O2 as needed Mechanical VTE prophylaxis BD TX PRN PO as tolerated Will need further outpatient workup and possible biopsy of lung nodule. Will need dedicated Chest CT IVF Floor Dr Krueger
[2019-08-22] MEDS ORDERED: ACETAMINOPHEN 1000 MG/100 ML VIAL (NON FORMULARY) IVPB PRN (12:04)
[2019-08-22] MEDS ORDERED: ONDANSETRON 4 MG/2 ML VIAL IVPUSH PRN (12:04)
[2019-08-22] MEDS ORDERED: ALBUTEROL SO4 8 GM HFA INHALER IH PRN (12:04)
[2019-08-22] MEDS ORDERED: SODIUM CHLORIDE 0.9% 500 ML INFUS.BAG IV ONE (14:00)
--- NOTE | 2019-08-22 15:33 | PN ---
Physical Exam: SUBJECTIVE: Patient seen and examined O/N: received 1.9L + 500cc for hypotension post-cystoscopy. Hgb ~8 which prompted concern for excessive EBL. S/P pRBC x1. Admitted to ICU. Had Feliz removed ~ 1030 by ICU nurse Endorse improved fatigue, mild lower abd pain, no pain w/ urination, did not see the color of her urine in the Feliz prior to removal OBJECTIVE: Vital Signs Period Temp Pulse Resp BP Sys/Palma Pulse Ox Last 24 Hr 97.5 F-983 F 8 13-20 78-122/41-78 96-100 GENERAL: The patient is awake, alert, and fully oriented, in no acute distress. HEAD: NC/AT. Moderate temporal wasting EYES: sclera anicteric, conjunctival pallor. ENT: Ears normal, nares patent, oropharynx clear without exudates, moist mucous membranes. Poor dentition NECK: Trachea midline, full range of motion, supple. Neg cervical LAD LUNGS: Mild expiratory wheezes b/l throughout lung morelos. No crackles, no accessory muscle use. Breathing RA HEART: Regular rate and rhythm, S1, S2 without murmur, rub or gallop. ABDOMEN: Soft, nondistended, normoactive bowel sounds, no guarding. Mild TTP of suprapubic area EXTREMITIES: 2+ pulses, warm, well-perfused, no edema. NEUROLOGICAL: Normal speech, gait not observed. SKIN: Warm, dry Laboratory Results - last 24 hr 08/21/19 08/21/19 08/22/19 16:40 16:40 06:00 WBC 8.1 9.1 RBC 2.77 L 3.53 L Hgb 8.0 L 10.1 L Hct 25.1 L 31.3 L D MCV 90.8 88.7 MCH 29.0 28.7 MCHC 31.9 L 32.4 RDW 15.2 15.9 H Plt Count 307 321 MPV 8.3 8.5 Absolute Neuts (auto) 6.6 Neutrophils % 72.9 Lymphocytes % 16.6 Monocytes % 9.9 Eosinophils % 0.4 D Basophils % 0.2 Nucleated RBC % 0 Sodium Potassium Chloride Carbon Dioxide Anion Gap BUN Creatinine Est GFR (CKD-EPI)AfAm Est GFR (CKD-EPI)NonAf Random Glucose Calcium Phosphorus Magnesium Total Bilirubin AST ALT Alkaline Phosphatase Total Protein Albumin Blood Type O POSITIVE Antibody Screen Negative Crossmatch See Detail 08/22/19 06:00 WBC RBC Hgb Hct MCV MCH MCHC RDW Plt Count MPV Absolute Neuts (auto) Neutrophils % Lymphocytes % Monocytes % Eosinophils % Basophils % Nucleated RBC % Sodium 142 Potassium 4.6 Chloride 108 H Carbon Dioxide 28 Anion Gap 6 L BUN 8.4 Creatinine 0.7 Est GFR (CKD-EPI)AfAm 98.23 Est GFR (CKD-EPI)NonAf 84.75 Random Glucose 82 Calcium 8.9 Phosphorus 3.4 Magnesium 1.5 L Total Bilirubin 0.6 AST 14 L ALT 11 L Alkaline Phosphatase 68 Total Protein 5.6 L Albumin 2.2 L Blood Type Antibody Screen Crossmatch Active Medications Generic Name Dose Route Start Last Admin Trade Name Freq PRN Reason Stop Dose Admin Acetaminophen 1,000 mg 08/22/19 12:04 Ofirmev Injection - IVPB Q6H PRN PAIN LEVEL 7 - 10 Albuterol Sulfate 1 puff 08/22/19 12:04 Ventolin Hfa Inhaler - IH Q6H PRN WHEEZING Clotrimazole 1 applic 08/22/19 22:00 Gyne-Lotrimin - VG HS [facility]O Docusate Sodium 100 mg 08/23/19 10:00 Colace - PO DAILY [facility] Fentanyl 25 mcg 08/22/19 12:04 Sublimaze Injection - IVPUSH [id number] PRN PAIN-PACU ORDER X 4 DOSES ONLY Ferrous Sulfate 325 mg 08/23/19 10:00 Feosol - PO DAILY [facility] Ertapenem 1 gm/ Sodium 50 mls @ 100 mls/hr 08/23/19 10:00 Chloride IVPB DAILY [facility] Lactated Ringer's 1,000 ml in 1,000 mls @ 100 mls/hr 08/22/19 12:04 Lactated Ringers Solution IV ASDIR BEB[facility]O Magnesium Oxide 400 mg 08/22/19 22:00 Mag-Ox - PO 08/22/19 22:01 BID [facility] Multi-Ingredient Ointment 1 applic 08/22/19 22:00 Zinc Oxide TP BID [facility] Ondansetron HCl 4 mg 08/22/19 12:04 Zofran Injection IVPUSH Q6H PRN NAUSEA AND/OR VOMITING ASSESSMENT/PLAN: 74y/o female with pmh of CKD, COPD, and recurrent UTIs who presented with hematuria x 3 days and abdominal pain x 4 days. Later endorses that she has had months of scant hematuria but was too embarassed to tell anyone. S/p cystocopy w / biopsy(Sahra, 08/21/19) #hematuria --possibly chronic hemorrhagic cystitis vs malignancy - ED: s/p ceftriaxone in ED, pt is PCN allergy - pt had cystoscopy in Summer 2018(?benign results) - s/p cystocopy w/ biopsy(Sahra, 08/21/19) --notable for absence of Left-sided ureteral orifice, areas of bleeding mucosa, no bladder masses > (+) UA : Nitrite +, 4+ LE , >400 WBC > UCX(08/16/19): NGTD > BCX(08/21/19): NGTD > U/S kidneys: b/l multiple renal cysts > CT abdomen/pelvis without contrast(elevated Cr)((08/17/19)): irregl Left basilar mass(2.6 x1.4 --unchanged from 12/01/18), cholelithiasis w/ CBD 1.7cm, thickened and irreg bladder wall - Empiric Abx coverage: -- levaquin --> ertapenem --day 7 - Urology(Sahra) consulted: --s/p cystoscopy w/ bx --possibly dt cystitis --if continued bleeding, then Amicar(load 3g, then 2g IV or PO q6h) #Acute Blood loss Anemia(Hgb 8.7 --> 8.0) --occurring post cystoscopy(08/21/19) #chronic normocytic anemia --baseline ?10 > Hgb 10.4 ... 8.6... 8.0... s/p pRBC x1(08/21/19)... 10.1 - FeSO4 supplementation + colace - cw monitoring #dilated CBD(1.7cm) --incidental finding on CT A/P --pt asymptomatic > CT A/P(08/17/19): dil CBD(1.7), cholelithiasis > MRCP --pending read # lung nodule --given smoking hx, hematuria, lung biopsy recommended to patient and daughter both of which are in agreement to proceed this admission > CT 2.6x1.4cm left lung base, not significantly changed from November 2018 -lung biopsy --pending #Hypercalcemia --resolved > Ca 11.4 --> 8.9 > PTH: 20(normal) > kappa light chain rivera: -- free Pickering LC 80.3(H) -- free Lambda LC 42.7(H) -- free Pamela/Lambd 1.88(H) > KARENA M-spike --pending - cw monitoring # CINTHIA --resolving > Cr 1.5 ... 0.7 - avoid neprhotoxic agents #Chronic Vision loss > CT H(08/17/19): neg acute path, frontoparietal microvascular changes - over 1 month - consider opthalmology consultation #Vaginitis - possibly 2/2 fungal - topical clotrimazole #?Hypothyroidism > TSH: 4.1 - possible repeat TSH as outpatient F/E/N - sodium controlled diet + Ensure(vanilla or strawberry) - monitor lytes DVT ppx: SCDs Dispo: ICU downgrade to [facility] Visit type - Emergency Visit Emergency Visit: No - New Patient This patient is new to me today: No - Critical Care Critical Care patient: No ATTENDING PHYSICIAN STATEMENT I saw and evaluated the patient. I reviewed the resident's note and discussed the case with the resident. I agree with the resident's findings and plan as documented. SUBJECTIVE: OBJECTIVE: ASSESSMENT AND PLAN:
[2019-08-22] MEDS: LACTATED RINGERS SOLUTION 1,000 ML/1,000 ML INFUS.BAG IV SCH (17:13)
[2019-08-22] MEDS: CLOTRIMAZOLE 1% VAGINAL CREAM WITH APPLICATOR 45 GM TUBE VG SCH (21:26)
[2019-08-23] MEDS: LACTATED RINGERS SOLUTION 1,000 ML/1,000 ML INFUS.BAG IV SCH ×2 (04:49→19:20)
[2019-08-23 07:51] LABS: BASO % 0.6 % (0-2.0); EOS % 5.3 % (0-4.5); HEMATOCRIT 31.2 % (32.4-45.2); HEMOGLOBIN 10.2 GM/dL (10.7-15.3); LYMPH % 23.4 % (8-40); MCHC 32.6 g/dl (32.0-36.0); MEAN PLT VOLUME 8.5 fl (7.5-11.1); MONO % 8.4 % (3.8-10.2); NEUT % 62.3 % (42.8-82.8); PLATELET COUNT 325 K/MM3 (134-434); RBC 3.51 M/mm3 (3.60-5.2); RDW 15.9 % (11.6-15.6); WHITE BLOOD COUNT 7.5 K/mm3 (4.0-10.0)
[2019-08-23 08:35] LABS: ALBUMIN 2.6 g/dl (3.4-5.0); BILIRUBIN,TOTAL 0.3 mg/dL (0.2-1); BLOOD UREA NITROGEN 12.7 mg/dL (7-18); CALCIUM 9.6 mg/dL (8.5-10.1); CREATININE 0.9 mg/dL (0.55-1.3); MAGNESIUM 1.8 mg/dL (1.8-2.4); PHOSPHOROUS 2.7 mg/dL (2.5-4.9); POTASSIUM 4.3 mmol/L (3.5-5.1)
[2019-08-23] MEDS ORDERED: ERTAPENEM SODIUM 1 GM in SODIUM CHLORIDE 50 ML IVPB SCH (10:00)
[2019-08-23] MEDS: FERROUS SO4 325 MG TABLET (FP) PO SCH (10:11)
[2019-08-23] MEDS: DOCUSATE SODIUM 100 MG CAPSULE (FP) PO SCH (10:11)
[2019-08-23] MEDS: ZINC OXIDE 20% TOPICAL OINTMENT 30 GM TUBE TP SCH ×2 (10:13→22:18)
--- NOTE | 2019-08-23 10:38 | PN ---
Progress Note (short form) - Note Progress Note: PULMONARY Denies shortness of breath, cough or wheezing. No further bleeding noted. Vital Signs Period Temp Pulse Resp BP Sys/Palma Pulse Ox Last 24 Hr 97.5 F-98.4 F 73-80 20-20 91-110/50-63 98-99 Gen: NAD at rest Heart: RRR Lung: decreased breath sounds at the bases Abd: soft, nontender Ext: no edema CBC, BMP 08/23/19 06:15 08/23/19 06:15 Active Medications Acetaminophen (Ofirmev Injection -) 1,000 mg IVPB Q6H PRN PRN Reason: PAIN LEVEL 7 - 10 Albuterol Sulfate (Ventolin Hfa Inhaler -) 1 puff IH Q6H PRN PRN Reason: WHEEZING Clotrimazole (Gyne-Lotrimin -) 1 applic VG HS [facility] Last Admin: 08/22/19 21:26 Dose: 1 applic Docusate Sodium (Colace -) 100 mg PO DAILY [facility] Last Admin: 08/23/19 10:11 Dose: 100 mg Fentanyl (Sublimaze Injection -) 25 mcg IVPUSH [id number] PRN PRN Reason: PAIN-PACU ORDER X 4 DOSES ONLY Ferrous Sulfate (Feosol -) 325 mg PO DAILY [facility] Last Admin: 08/23/19 10:11 Dose: 325 mg Ertapenem 1 gm/ Sodium (Chloride) 50 mls @ 100 mls/hr IVPB DAILY [facility] Last Admin: 08/23/19 10:12 Dose: 100 mls/hr Lactated Ringer's (Lactated Ringers Solution) 1,000 ml in 1,000 mls @ 100 mls/ hr IV ASDIR [facility] Last Admin: 08/23/19 04:49 Dose: 100 mls/hr Multi-Ingredient Ointment (Zinc Oxide) 1 applic TP BID [facility] Last Admin: 08/23/19 10:13 Dose: 1 applic Ondansetron HCl (Zofran Injection) 4 mg IVPUSH Q6H PRN PRN Reason: NAUSEA AND/OR VOMITING A/P Hematuria Acute Blood Loss Anemia UTI COPD Lung Nodule CKD - continue antibiotics - inhaled bronchodilators - would obtain dedicated CT chest before biopsy - DVT prophylaxis
--- NOTE | 2019-08-23 12:30 | PATH ---
Cytology Non-Gynecological Report Patient Name: MELISSA ESPOSITO [facility]. Rec. #: [id number] /Age/Gender: 1945 (Age: 74) / F Account: [id number] Location: [address] [place] [address] Taken: 08/21/2019 Received: 08/21/2019 Reported: 08/23/2019 Physicians: Leonora Taylor M.D. Specimen(s) Received URINE VOIDED Clinical History Hematuria Final Diagnosis URINE FOR CYTOLOGY: SATISFACTORY FOR EVALUATION. NEGATIVE FOR HIGH GRADE UROTHELIAL CARCINOMA. SCATTERED UROTHELIAL CELLS AND SQUAMOUS EPITHELIAL CELLS PRESENT, IN A BACKGROUND OF RED BLOOD CELLS AND NUMEROUS NEUTROPHILS. Electronically Signed Darryl Vazquez M.D. Gross Description Approximately 10cc of nuzhat colored fluid received fresh. One cytospin prepared.
--- NOTE | 2019-08-23 13:29 | PN ---
Physical Exam: SUBJECTIVE: Patient seen and examined. She denies abdominal pain, nausea, chest pain, and shortness of breath. She has had pink-tinged urine. BM this morning with no blood. She reports mild vaginal itching but no pain. OBJECTIVE: Vital Signs Period Temp Pulse Resp BP Sys/Palma Pulse Ox Last 24 Hr 97.6 F-98.4 F 69-77 20-20 97-110/50-63 98-99 GENERAL: The patient is awake, alert, and fully oriented, in no acute distress. Standing by bedside. HEAD: Normal with no signs of trauma. EYES: PERRL, extraocular movements intact, conjunctiva clear. ENT: Ears normal, nares patent, moist mucous membranes. NECK: Trachea midline, full range of motion LUNGS: Clear to auscultation bilaterally, no crackles noted HEART: Regular rate and rhythm, S1, S2 without murmur ABDOMEN: Soft, non-tender, nondistended, normoactive bowel sounds, no guarding EXTREMITIES: Warm, well-perfused, no edema. NEUROLOGICAL: Cranial nerves II through XII grossly intact. Normal speech. PSYCH: Normal mood, normal affect. SKIN: Warm, dry, normal turgor Laboratory Results - last 24 hr 08/23/19 08/23/19 06:15 06:15 WBC 7.5 RBC 3.51 L Hgb 10.2 L Hct 31.2 L MCV 89.0 MCH 29.0 MCHC 32.6 RDW 15.9 H Plt Count 325 MPV 8.5 Absolute Neuts (auto) 4.7 Neutrophils % 62.3 Lymphocytes % 23.4 D Monocytes % 8.4 Eosinophils % 5.3 H D Basophils % 0.6 Nucleated RBC % 0 Sodium 141 Potassium 4.3 Chloride 106 Carbon Dioxide 31 Anion Gap 4 L BUN 12.7 Creatinine 0.9 Est GFR (CKD-EPI)AfAm 72.49 Est GFR (CKD-EPI)NonAf 62.55 Random Glucose 75 Calcium 9.6 Phosphorus 2.7 Magnesium 1.8 Total Bilirubin 0.3 AST 16 ALT 14 Alkaline Phosphatase 78 Total Protein 6.0 L Albumin 2.6 L Active Medications Generic Name Dose Route Start Last Admin Trade Name Freq PRN Reason Stop Dose Admin Acetaminophen 1,000 mg 08/22/19 12:04 Ofirmev Injection - IVPB Q6H PRN PAIN LEVEL 7 - 10 Albuterol Sulfate 1 puff 01/01/20 12:04 Ventolin Hfa Inhaler - IH Q6H PRN WHEEZING Clotrimazole 1 applic 08/22/19 22:00 08/22/19 21:26 Gyne-Lotrimin - VG 1 applic HS [facility] Administration Docusate Sodium 100 mg 08/23/19 10:00 08/23/19 10:11 Colace - PO 100 mg DAILY [facility] Administration Fentanyl 25 mcg 08/22/19 12:04 Sublimaze Injection - IVPUSH [id number] PRN PAIN-PACU ORDER X 4 DOSES ONLY Ferrous Sulfate 325 mg 08/23/19 10:00 08/23/19 10:11 Feosol - PO 325 mg DAILY [facility] Administration Lactated Ringer's 1,000 ml in 1,000 mls @ 100 mls/hr 08/22/19 12:04 08/23/19 04:49 Lactated Ringers Solution IV 100 mls/hr ASDIR BEBETO Administration Multi-Ingredient Ointment 1 applic 08/22/19 22:00 08/23/19 10:13 Zinc Oxide TP 1 applic BID [facility] Administration Ondansetron HCl 4 mg 08/22/19 12:04 Zofran Injection IVPUSH Q6H PRN NAUSEA AND/OR VOMITING ASSESSMENT/PLAN: Ms. Thompson is a 74y/o female with CKD, COPD, and recurrent UTIs who presents with hematuria x 3 days and abdominal pain x 4 days. #hematuria #normocytic anemia s/p PRBCs -cystoscopy showed 2 right ureteral orifices, no left; some mucosal bleeding on right and right-posterior wall; biopsies taken; was hypotensive following -CT abdomen shows thickened bladder wall, christopher anteriorly -U/S kidneys showed b/l multiple renal cysts -Hb stable 10 -ertapenem d/c'ed- negative urine cx -if hematuria persists, Amicar loading dose 3g followed by 2g IV or PO Q6H -LR 100mL/hr #lung nodule -found on CT 2.6x1.4cm left lung base, not significantly changed from November 2018 -CT chest ordered -pulm following #dilated CBD -normal t-bili -MRCP- cholelithiasis noted, 1.7cm dilated CBD same as November 2018, no gross mass noted, recommend GI consult for further imaging #vaginal rash, improved -clotrimazole -zinc oxide #hypomagnesemia, resolved #COPD -albuterol PRN #CKD -Cr and BUN normal #normocytic anemia -iron supplementation -monitor Hb #constipation -colace #elevated TSH -possible hypothyroidism -recheck out patient in a few weeks because could be stress-related #vision changes in right eye -CT head negative for acute changes -can f/u out patient for eye exam DVT Ppx SCDs FEN PO monitor Hb regular diet, add ensure dispo med/surg Visit type - Emergency Visit Emergency Visit: Yes ED Registration Date: 08/16/19 Care time: The patient presented to the Emergency Department on the above date and was hospitalized for further evaluation of their emergent condition. - New Patient This patient is new to me today: No - Critical Care Critical Care patient: No - Discharge Referral Referred to [facility] No ATTENDING PHYSICIAN STATEMENT I saw and evaluated the patient. I reviewed the resident's note and discussed the case with the resident. I agree with the resident's findings and plan as documented. SUBJECTIVE: OBJECTIVE: ASSESSMENT AND PLAN:
--- NOTE | 2019-08-23 14:46 | PN ---
Physical Exam: SUBJECTIVE: Patient seen and examined [facility] H/H stable very little hematuria OBJECTIVE: Vital Signs Period Temp Pulse Resp BP Sys/Palma Pulse Ox Last 24 Hr 97.4 F-98.4 F 69-84 20-20 97-110/50-63 98-99 GENERAL: The patient is awake, alert, and fully oriented, in no acute distress. HEAD: Normal with no signs of trauma. EYES: PERRL, extraocular movements intact, ENT: moist mucous membranes.no thrush or mucositis NECK: full range of motion, supple. Breast no palpated masses Nodes: no enlarged nodes palpated LUNGS: Breath sounds equal, clear to auscultation bilaterally, no wheezes, no crackles, no accessory muscle use. HEART: Regular rate and rhythm, S1, S2 without murmur, rub or gallop. ABDOMEN: Soft, nontender, nondistended, normoactive bowel sounds, transverse surgical scar on left diagram side , longitudinal med surgical scar EXTREMITIES: 2+ pulses, warm, well-perfused, no edema. NEUROLOGICAL: no focal defect . Normal speech, gait not observed. PSYCH: Normal mood, normal affect. SKIN: Warm, dry, normal turgor, keloid lesion on left shoulder tender to palpation Laboratory Results - last 24 hr 08/23/19 08/23/19 06:15 06:15 WBC 7.5 RBC 3.51 L Hgb 10.2 L Hct 31.2 L MCV 89.0 MCH 29.0 MCHC 32.6 RDW 15.9 H Plt Count 325 MPV 8.5 Absolute Neuts (auto) 4.7 Neutrophils % 62.3 Lymphocytes % 23.4 D Monocytes % 8.4 Eosinophils % 5.3 H D Basophils % 0.6 Nucleated RBC % 0 Sodium 141 Potassium 4.3 Chloride 106 Carbon Dioxide 31 Anion Gap 4 L BUN 12.7 Creatinine 0.9 Est GFR (CKD-EPI)AfAm 72.49 Est GFR (CKD-EPI)NonAf 62.55 Random Glucose 75 Calcium 9.6 Phosphorus 2.7 Magnesium 1.8 Total Bilirubin 0.3 AST 16 ALT 14 Alkaline Phosphatase 78 Total Protein 6.0 L Albumin 2.6 L Active Medications Generic Name Dose Route Start Last Admin Trade Name Freq PRN Reason Stop Dose Admin Acetaminophen 1,000 mg 08/22/19 12:04 Ofirmev Injection - IVPB Q6H PRN PAIN LEVEL 7 - 10 Albuterol Sulfate 1 puff 08/22/19 12:04 Ventolin Hfa Inhaler - IH Q6H PRN WHEEZING Clotrimazole 1 applic 08/22/19 22:00 08/22/19 21:26 Gyne-Lotrimin - VG 1 applic HS BEBETO Administration Docusate Sodium 100 mg 08/23/19 10:00 08/23/19 10:11 Colace - PO 100 mg DAILY BEBETO Administration Fentanyl 25 mcg 08/22/19 12:04 Sublimaze Injection - IVPUSH [id number] PRN PAIN-PACU ORDER X 4 DOSES ONLY Ferrous Sulfate 325 mg 08/23/19 10:00 08/23/19 10:11 Feosol - PO 325 mg DAILY BEBETO Administration Lactated Ringer's 1,000 ml in 1,000 mls @ 100 mls/hr 08/22/19 12:04 08/23/19 04:49 Lactated Ringers Solution IV 100 mls/hr ASDIR BEBETO Administration Multi-Ingredient Ointment 1 applic 08/22/19 22:00 08/23/19 10:13 Zinc Oxide TP 1 applic BID BEBETO Administration Ondansetron HCl 4 mg 08/22/19 12:04 Zofran Injection IVPUSH Q6H PRN NAUSEA AND/OR VOMITING CBC, BMP 08/23/19 06:15 08/23/19 06:15 Pelvic U/S Similar to a CT exam of 12/01/2018 note is made of diffuse urinary bladder wall thickening which may be on the basis of chronic cystitis versus recurrent cystitis. This finding is much better appreciated on CT. Follow-up CT or MRI may be considered. No obvious calculus or mass lesion is identified within the limitations of sonography. A post void residual urinary volume of 190 mL is seen. The prevoid volume was 250 mL. No free intraperitoneal fluid is noted. Several small calcified uterine leiomyomas are again seen. The endometrium is not well visualized on this transabdominal study. No gross endometrial thickening is visualized. The ovaries could not be definitely identified. \ ASSESSMENT/PLAN: 74 y/o female presenting with wt. loss, hematuria and imaging sowing thickened ,irregular bladder, fibroid uterus, cholelithisis, dilated EHBD, 2,6cm irregular left lung mass URology on board S/P cystoscopy/bx, check urine cytology agree with biopsy of left lung mass will follow # Hematuria with urgency and dyuria: DDx hemorrhagic cystitis, VS bladder cancer.S/P Cystoscopy . Bx were taken. 2 ureteral orifices on R side, none on left. * follow urine cytology * follow blood cx * S/P ertapenem * Transfuse as needed . * S/P amicar * No hx of radiation to bladder or adjacent organs , no h/o cyclophosphamide use #Acute blood loss anemia. * monitor H/H . maintain Hgb > 8 #Mild hypercalcemia: due to increased milk intake. PTH Nl * kappa/Lamda ration is slightly elevated., follow SPEP, UPEP, immunofixation #LLL lung mass 2.4x1.6 cm. patient and daughter agreed to Lung bx # R/o bladder Ca. follow bx #Dilated CBD 1.[address] scan. MRCP was done . follow read #Calcified uterine myomas on US. follow up out pt #DVT PX: Scds only ATTENDING PHYSICIAN STATEMENT I saw and evaluated the patient. I reviewed the resident's note and discussed the case with the resident. I agree with the resident's findings and plan as documented. SUBJECTIVE: OBJECTIVE: ASSESSMENT AND PLAN:
--- NOTE | 2019-08-23 16:52 | PN ---
Teaching Attending Note Name of Resident: Harriett Cardoso ATTENDING PHYSICIAN STATEMENT I saw and evaluated the patient. I reviewed the resident's note and discussed the case with the resident. I agree with the resident's findings and plan as documented. SUBJECTIVE: Patient is feeling better with no acute distress. Vital Signs Temperature 97.4 F L 08/23/19 13:54 Pulse Rate 84 08/23/19 13:54 Respiratory Rate 20 08/23/19 10:00 Blood Pressure 101/56 L 08/23/19 13:54 O2 Sat by Pulse Oximetry (%) 99 08/23/19 08:24 GENERAL: The patient is awake, alert, and fully oriented, in no acute distress. HEAD: Normal with no signs of trauma. EYES: PERRL, extraocular movements intact, sclera anicteric, conjunctiva clear. ENT: Ears normal, oropharynx clear without exudates, moist mucous membranes. NECK: Trachea midline, full range of motion, supple. LUNGS: Breath sounds equal, clear to auscultation bilaterally, no wheezes, no crackles, no accessory muscle use. HEART: Regular rate and rhythm, S1, S2 without murmur, rub or gallop. ABDOMEN: Soft, nontender, nondistended, normoactive bowel sounds, no guarding, no rebound, no hepatosplenomegaly, no masses. EXTREMITIES: 2+ pulses, warm, well-perfused, no edema. NEUROLOGICAL: Cranial nerves II through XII grossly intact. Normal speech, gait not observed. PSYCH: Normal mood, normal affect. SKIN: Warm, dry, normal turgor, no rashes or lesions noted CBCD WBC 7.5 K/mm3 (4.0-10.0) 08/23/19 06:15 RBC 3.51 M/mm3 (3.60-5.2) L 08/23/19 06:15 Hgb 10.2 GM/dL (10.7-15.3) L 08/23/19 06:15 Hct 31.2 % (32.4-45.2) L 08/23/19 06:15 MCV 89.0 fl (80-96) 08/23/19 06:15 MCHC 32.6 g/dl (32.0-36.0) 08/23/19 06:15 RDW 15.9 % (11.6-15.6) H 08/23/19 06:15 Plt Count 325 K/MM3 (134-434) 08/23/19 06:15 MPV 8.5 fl (7.5-11.1) 08/23/19 06:15 CMP Sodium 141 mmol/L (136-145) 08/23/19 06:15 Potassium 4.3 mmol/L (3.5-5.1) 08/23/19 06:15 Chloride 106 mmol/L (98-107) 08/23/19 06:15 Carbon Dioxide 31 mmol/L (21-32) 08/23/19 06:15 Anion Gap 4 MMOL/L (8-16) L 08/23/19 06:15 BUN 12.7 mg/dL (7-18) 08/23/19 06:15 Creatinine 0.9 mg/dL (0.55-1.3) 08/23/19 06:15 Random Glucose 75 mg/dL (74-106) 08/23/19 06:15 Calcium 9.6 mg/dL (8.5-10.1) 08/23/19 06:15 Total Bilirubin 0.3 mg/dL (0.2-1) 08/23/19 06:15 AST 16 U/L (15-37) 08/23/19 06:15 ALT 14 U/L (13-61) 08/23/19 06:15 Alkaline Phosphatase 78 U/L (45-117) 08/23/19 06:15 Total Protein 6.0 g/dl (6.4-8.2) L 08/23/19 06:15 Albumin 2.6 g/dl (3.4-5.0) L 08/23/19 06:15 Current Medications Generic Name Dose Route Start Last Admin Trade Name Freq PRN Reason Stop Dose Admin Acetaminophen 1,000 mg 08/22/19 12:04 Ofirmev Injection - IVPB Q6H PRN PAIN LEVEL 7 - 10 Albuterol Sulfate 1 puff 08/22/19 12:04 Ventolin Hfa Inhaler - IH Q6H PRN WHEEZING Clotrimazole 1 applic 08/22/19 22:00 08/22/19 21:26 Gyne-Lotrimin - VG 1 applic HS BEBETO Administration Docusate Sodium 100 mg 08/23/19 10:00 08/23/19 10:11 Colace - PO 100 mg DAILY BEBETO Administration Fentanyl 25 mcg 08/22/19 12:04 Sublimaze Injection - IVPUSH [id number] PRN PAIN-PACU ORDER X 4 DOSES ONLY Ferrous Sulfate 325 mg 08/23/19 10:00 08/23/19 10:11 Feosol - PO 325 mg DAILY BEBETO Administration Lactated Ringer's 1,000 ml in 1,000 mls @ 100 mls/hr 08/22/19 12:04 08/23/19 04:49 Lactated Ringers Solution IV 100 mls/hr ASDIR BEBETO Administration Multi-Ingredient Ointment 1 applic 08/22/19 22:00 08/23/19 10:13 Zinc Oxide TP 1 applic BID BEBETO Administration Ondansetron HCl 4 mg 08/22/19 12:04 Zofran Injection IVPUSH Q6H PRN NAUSEA AND/OR VOMITING Home Medications Medication Instructions Recorded Albuterol Sulfate Inhaler - 1 puff IH QID PRN 12/01/18 [Ventolin HFA Inhaler -] Ferrous Sulfate [Iron] 325 mg PO DAILY 12/01/18 Sennosides/Docusate Sodium 2 each PO DAILY 12/01/18 [Senna-Docusate Sodium Tablet] Mirabegron [Myrbetriq] 25 mg DAILY 08/17/19 Multivitamin [Multiple Vitamins] 1 each DAILY 08/17/19 Microbiology 08/16/19 20:04 Urine - Urine Clean Catch Urine Culture - Final NO GROWTH OBTAINED 08/16/19 16:58 Urine - Urine Clean Catch Urine Culture - Final NO GROWTH OBTAINED ASSESSMENT AND PLAN: Patient is a 74yof, with Pmhx of recurrent UTIs, hematuria requiring transfusion , COPD, who presented with hematuria and urgency/dysuria x 1 month . # POD#1 cystoscopy due to having hematuria with urgency and dyuria r/o bladder cancer.;follow bx result, 2 ureteral orifices on R side, none on left. follow urine cytology , blood cx . On ertapenem day 7, U cx neg so far. Transfuse as needed . a sper urologist if bleeding worsens, or HB drops further, will be started on Amicar ( 3 g x 1 IV then 2 g po or IV q 6h) # CKD: Cr at base line. #Acute blood loss anemia. stable now, monitor H/H , transfuse as needed # Mild hypercalcemia: due to increased milk intake. PTH Nl, follow kappa/ Lamda ration is slightly elevated. # Weight loss. LLL lung mass 2.4x1.6 cm. patient and daughter agreed to Lung bx , can be done as an outpatient # TSH is only slightly elevated. follow up with contracts administrator. # Dilated CBD 1.[address] scan. MRCP was done . No choledecholithiasis, no gross mass noted. follow up with GI as an outpatient. 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 out pt f/u # R eye blurriness: chronic . f/u with opth as out pt. DVT px : SCds Nystatin and zinc oxide on genital area .
--- NOTE | 2019-08-23 18:42 | PN ---
Progress Note (short form) - Note Progress Note: Pt seen and examined with Dr. Darryl Read. Agree with note and plan 74 yo F PMH CKD, COPD, recurrent UTI presents to ED for 1 mo hematuria. pt states that she has been having 1 mo hematuria, weakness, chills, decreased appetite and >20 lb weight loss. she states that she went to her urologist who evaluated her for UTI and gave her macrobid and myrberiq. she also endorses constipation. PAST MEDICAL HISTORY: CKD, COPD, recurrent UTI PAST SURGICAL HISTORY: denies Social History: Smoking: past history, 30 years. quit years ago Alcohol:denies Drugs: denies Allergies Penicillins Allergy (Verified 08/16/19 16:37) shellfish derived Allergy (Verified 08/16/19 16:37) 08/23/19 06:15 08/23/19 06:15 Current Medications Acetaminophen (Ofirmev Injection -) 1,000 mg IVPB Q6H PRN PRN Reason: PAIN LEVEL 7 - 10 Albuterol Sulfate (Ventolin Hfa Inhaler -) 1 puff IH Q6H PRN PRN Reason: WHEEZING Clotrimazole (Gyne-Lotrimin -) 1 applic VG HS [facility] Last Admin: 08/22/19 21:26 Dose: 1 applic Docusate Sodium (Colace -) 100 mg PO DAILY [facility] Last Admin: 08/23/19 10:11 Dose: 100 mg Fentanyl (Sublimaze Injection -) 25 mcg IVPUSH [id number] PRN PRN Reason: PAIN-PACU ORDER X 4 DOSES ONLY Ferrous Sulfate (Feosol -) 325 mg PO DAILY [facility] Last Admin: 08/23/19 10:11 Dose: 325 mg Lactated Ringer's (Lactated Ringers Solution) 1,000 ml in 1,000 mls @ 100 mls/ hr IV ASDIR [facility] Last Admin: 08/23/19 04:49 Dose: 100 mls/hr Multi-Ingredient Ointment (Zinc Oxide) 1 applic TP BID [facility] Last Admin: 08/23/19 10:13 Dose: 1 applic Ondansetron HCl (Zofran Injection) 4 mg IVPUSH Q6H PRN PRN Reason: NAUSEA AND/OR VOMITING Pelvic U/S Similar to a CT exam of 12/01/2018 note is made of diffuse urinary bladder wall thickening which may be on the basis of chronic cystitis versus recurrent cystitis. This finding is much better appreciated on CT. Follow-up CT or MRI may be considered. No obvious calculus or mass lesion is identified within the limitations of sonography. A post void residual urinary volume of 190 mL is seen. The prevoid volume was 250 mL. No free intraperitoneal fluid is noted. Several small calcified uterine leiomyomas are again seen. The endometrium is not well visualized on this transabdominal study. No gross endometrial thickening is visualized. The ovaries could not be definitely identified. \ ASSESSMENT/PLAN: In brief, 74 y/o lady presenting with wt. loss, hematuria and imaging sowing thickened ,irregular bladder, fibroid uterus, cholelithisis, dilated EHBD, 2, 6cm irregular left lung mass Urology performed cystoscopy biopsy results pending agree with biopsy of left lung mass inpatient if possible. Upon discharge needs follow-up with Dr. Frost/Dr. Rasheed for biopsy results report Hematuria improving. Please see Dr. Read note for full details will follow
--- NOTE | 2019-08-23 21:10 | PN ---
Progress Note (short form) - Note Progress Note: Patient voiding on her own Still with pink tinged urine No clots Pathology not yet back though I do not think it will show neoplasm Urine cytology reported as negative for high grade urothelial carcinoma. Of note although her admission culture was negative she was apparently given a course of antibiotics just prior to admission so this may have affected ability to determine if this started as an infectious problem If urine remains just light pink and blood tinged i would not start amicar just yet. Would continue to push po fluids and use anticholinergics to address her frequency ,urgency and small capacity bladder
[2019-08-23] MEDS: CLOTRIMAZOLE 1% VAGINAL CREAM WITH APPLICATOR 45 GM TUBE VG SCH (22:17)
[2019-08-24 07:53] LABS: HEMOGLOBIN 9.9 GM/dL (10.7-15.3)
[2019-08-24 08:09] LABS: BASO % 0.7 % (0-2.0); EOS % 4.7 % (0-4.5); HEMATOCRIT 29.7 % (32.4-45.2); LYMPH % 24.4 % (8-40); MCH 29.6 pg (25.7-33.7); MCHC 33.4 g/dl (32.0-36.0); MEAN CELL VOLUME 88.7 fl (80-96); MEAN PLT VOLUME 8.5 fl (7.5-11.1); MONO % 9.6 % (3.8-10.2); NEUT % 60.6 % (42.8-82.8); PLATELET COUNT 283 K/MM3 (134-434); RBC 3.34 M/mm3 (3.60-5.2); RDW 15.7 % (11.6-15.6); WHITE BLOOD COUNT 6.1 K/mm3 (4.0-10.0)
[2019-08-24] MEDS ORDERED: LACTATED RINGERS SOLUTION 1,000 ML/1,000 ML INFUS.BAG IV SCH (08:11)
[2019-08-24 08:31] LABS: ALBUMIN 2.5 g/dl (3.4-5.0); BILIRUBIN,TOTAL 0.2 mg/dL (0.2-1); BLOOD UREA NITROGEN 19.9 mg/dL (7-18); CALCIUM 9.8 mg/dL (8.5-10.1); CREATININE 0.9 mg/dL (0.55-1.3); MAGNESIUM 1.9 mg/dL (1.8-2.4); PHOSPHOROUS 3.2 mg/dL (2.5-4.9); POTASSIUM 4.3 mmol/L (3.5-5.1); TOT PROT 6.1 g/dl (6.4-8.2)
--- NOTE | 2019-08-24 08:41 | PN ---
Teaching Attending Note Name of Resident: Harriett Cardoso ATTENDING PHYSICIAN STATEMENT I saw and evaluated the patient. I reviewed the resident's note and discussed the case with the resident. I agree with the resident's findings and plan as documented. SUBJECTIVE: Patient is comfortable with no acute distress. No further bleed , just very light pink OBJECTIVE: Vital Signs Temperature 97.5 F L 08/24/19 09:05 Pulse Rate 99 H 08/24/19 09:05 Respiratory Rate 20 08/24/19 09:05 Blood Pressure 93/54 L 08/24/19 09:05 O2 Sat by Pulse Oximetry (%) 99 08/24/19 08:47 GENERAL: The patient is awake, alert, and fully oriented, in no acute distress. HEAD: Normal with no signs of trauma. EYES: PERRL, extraocular movements intact, sclera anicteric, conjunctiva clear. ENT: Ears normal, oropharynx clear without exudates, moist mucous membranes. NECK: Trachea midline, full range of motion, supple. LUNGS: Breath sounds equal, clear to auscultation bilaterally, no wheezes, no crackles, no accessory muscle use. HEART: Regular rate and rhythm, S1, S2 without murmur, rub or gallop. ABDOMEN: Soft, nontender, nondistended, normoactive bowel sounds, no guarding, no rebound, no hepatosplenomegaly, no masses. EXTREMITIES: 2+ pulses, warm, well-perfused, no edema. NEUROLOGICAL: Cranial nerves II through XII grossly intact. Normal speech, gait not observed. PSYCH: Normal mood, normal affect. SKIN: Warm, dry, normal turgor, no rashes or lesions noted CBCD WBC 6.1 K/mm3 (4.0-10.0) 08/24/19 07:15 RBC 3.34 M/mm3 (3.60-5.2) L 08/24/19 07:15 Hgb 9.9 GM/dL (10.7-15.3) L 08/24/19 07:15 Hct 29.7 % (32.4-45.2) L 08/24/19 07:15 MCV 88.7 fl (80-96) 08/24/19 07:15 MCHC 33.4 g/dl (32.0-36.0) 08/24/19 07:15 RDW 15.7 % (11.6-15.6) H 08/24/19 07:15 Plt Count 283 K/MM3 (134-434) 08/24/19 07:15 MPV 8.5 fl (7.5-11.1) 08/24/19 07:15 CMP Sodium 140 mmol/L (136-145) 08/24/19 07:15 Potassium 4.3 mmol/L (3.5-5.1) 08/24/19 07:15 Chloride 104 mmol/L (98-107) 08/24/19 07:15 Carbon Dioxide 31 mmol/L (21-32) 08/24/19 07:15 Anion Gap 5 MMOL/L (8-16) L 08/24/19 07:15 BUN 19.9 mg/dL (7-18) H 08/24/19 07:15 Creatinine 0.9 mg/dL (0.55-1.3) 08/24/19 07:15 Random Glucose 66 mg/dL (74-106) L 08/24/19 07:15 Calcium 9.8 mg/dL (8.5-10.1) 08/24/19 07:15 Total Bilirubin 0.2 mg/dL (0.2-1) 08/24/19 07:15 AST 20 U/L (15-37) 08/24/19 07:15 ALT 15 U/L (13-61) 08/24/19 07:15 Alkaline Phosphatase 91 U/L (45-117) 08/24/19 07:15 Total Protein 6.1 g/dl (6.4-8.2) L 08/24/19 07:15 Albumin 2.5 g/dl (3.4-5.0) L 08/24/19 07:15 Current Medications Generic Name Dose Route Start Last Admin Trade Name Freq PRN Reason Stop Dose Admin Acetaminophen 1,000 mg 08/22/19 12:04 Ofirmev Injection - IVPB Q6H PRN PAIN LEVEL 7 - 10 Albuterol Sulfate 1 puff 08/22/19 12:04 Ventolin Hfa Inhaler - IH Q6H PRN WHEEZING Clotrimazole 1 applic 08/22/19 22:00 08/23/19 22:17 Gyne-Lotrimin - VG 1 applic HS BEBETO Administration Docusate Sodium 100 mg 08/23/19 10:00 08/24/19 09:04 Colace - PO 100 mg DAILY BEEBTO Administration Fentanyl 25 mcg 08/22/19 12:04 Sublimaze Injection - IVPUSH [id number] PRN PAIN-PACU ORDER X 4 DOSES ONLY Ferrous Sulfate 325 mg 08/23/19 10:00 08/24/19 09:04 Feosol - PO 325 mg DAILY BEBETO Administration Lactated Ringer's 1,000 ml in 1,000 mls @ 50 mls/hr 08/24/19 08:11 Lactated Ringers Solution IV ASDIR BEBETO Multi-Ingredient Ointment 1 applic 08/22/19 22:00 08/24/19 09:04 Zinc Oxide TP 1 applic BID BEBETO Administration Ondansetron HCl 4 mg 08/22/19 12:04 Zofran Injection IVPUSH Q6H PRN NAUSEA AND/OR VOMITING Home Medications Medication Instructions Recorded Albuterol Sulfate Inhaler - 1 puff IH QID PRN 12/01/18 [Ventolin HFA Inhaler -] Ferrous Sulfate [Iron] 325 mg PO DAILY 12/01/18 Sennosides/Docusate Sodium 2 each PO DAILY 12/01/18 [Senna-Docusate Sodium Tablet] Mirabegron [Myrbetriq] 25 mg DAILY 08/17/19 Multivitamin [Multiple Vitamins] 1 each DAILY 08/17/19 Microbiology 08/21/19 20:35 Blood - Peripheral Venous Blood Culture - Preliminary NO GROWTH OBTAINED AFTER 48 HOURS, INCUBATION TO CONTINUE FOR 3 DAYS. 08/21/19 20:20 Blood - Peripheral Venous Blood Culture - Preliminary NO GROWTH OBTAINED AFTER 48 HOURS, INCUBATION TO CONTINUE FOR 3 DAYS. ASSESSMENT AND PLAN: Patient is a 74yof, with Pmhx of recurrent UTIs, hematuria requiring transfusion , COPD, who presented with hematuria and urgency/dysuria x 1 month . # POD#3 s/p cystoscopy due to having hematuria with urgency and dyuria r/o bladder cancer.;follow bx result as an outpatient, 2 ureteral orifices on R side, none on left. follow urine cytology , blood cx . dc'd ertapenem since no growth urinary . Transfuse as needed . as per urologist if bleeding worsens , or HB drops further, will be started on Amicar ( 3 g x 1 IV then 2 g po or IV q 6h) # CKD: Cr at base line. #Acute blood loss anemia. stable now, monitor H/H , transfuse as needed # Mild hypercalcemia: due to increased milk intake. PTH Nl, follow kappa/ Lamda ration is slightly elevated. # Weight loss. LLL lung mass 2.4x1.6 cm. patient and daughter agreed to Lung bx , can be done as an outpatient # TSH is only slightly elevated. follow up with foil wrapper. # Dilated CBD 1.[address] scan. MRCP was done . No choledecholithiasis, no gross mass noted. follow up with GI as an outpatient. 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 out pt f/u # R eye blurriness: chronic . f/u with opth as out pt. Nystatin and zinc oxide on genital area . DVT px : SCds Pathology not yet back though I do not think it will show neoplasm Urine cytology reported as negative for high grade urothelial carcinoma. Of note although her admission culture was negative she was apparently given a course of antibiotics just prior to admission so this may have affected ability to determine if this started as an infectious problem If urine remains just light pink and blood tinged i would not start amicar just yet. Would continue to push po fluids and use anticholinergics to address her frequency ,urgency and small capacity bladder
[2019-08-24] MEDS: DOCUSATE SODIUM 100 MG CAPSULE (FP) PO SCH (09:04)
[2019-08-24] MEDS: ZINC OXIDE 20% TOPICAL OINTMENT 30 GM TUBE TP SCH ×2 (09:04→21:50)
[2019-08-24] MEDS: FERROUS SO4 325 MG TABLET (FP) PO SCH (09:04)
--- NOTE | 2019-08-24 10:35 | PN ---
Physical Exam: SUBJECTIVE: Patient seen and examined. She reports intermittent pink-tinged urine. She denies fever, chills, nausea, vomiting, abdominal pain, or dysuria. OBJECTIVE: Vital Signs Period Temp Pulse Resp BP Sys/Palma Pulse Ox Last 24 Hr 97.4 F-98.5 F 74-99 20-20 93-112/54-70 99-99 GENERAL: The patient is awake, alert, and fully oriented, in no acute distress. HEAD: Normal with no signs of trauma. EYES: PERRL, extraocular movements intact, conjunctiva clear. ENT: Ears normal, nares patent, moist mucous membranes. NECK: Trachea midline, full range of motion LUNGS: Clear to auscultation bilaterally, no crackles HEART: Regular rate and rhythm, S1, S2 without murmur ABDOMEN: Soft, non-tender, nondistended, normoactive bowel sounds, no guarding EXTREMITIES: Warm, well-perfused, no edema. NEUROLOGICAL: Cranial nerves II through XII grossly intact. Normal speech. PSYCH: Normal mood, normal affect. SKIN: Warm, dry, normal turgor Laboratory Results - last 24 hr 08/21/19 08/24/19 08/24/19 20:20 07:15 07:15 WBC 6.1 RBC 3.34 L Hgb 9.9 L Hct 29.7 L MCV 88.7 MCH 29.6 MCHC 33.4 RDW 15.7 H Plt Count 283 MPV 8.5 Absolute Neuts (auto) 3.7 Neutrophils % 60.6 Lymphocytes % 24.4 Monocytes % 9.6 Eosinophils % 4.7 H Basophils % 0.7 Nucleated RBC % 0 Sodium 140 Potassium 4.3 Chloride 104 Carbon Dioxide 31 Anion Gap 5 L BUN 19.9 H Creatinine 0.9 Est GFR (CKD-EPI)AfAm 72.49 Est GFR (CKD-EPI)NonAf 62.55 Random Glucose 66 L Calcium 9.8 Phosphorus 3.2 Magnesium 1.9 Total Bilirubin 0.2 AST 20 ALT 15 Alkaline Phosphatase 91 Total Protein 6.1 L Albumin 2.5 L Serum KARENA Interpret IEP IgG 1186 IEP IgA 537 H IEP IgM 64 Active Medications Generic Name Dose Route Start Last Admin Trade Name Freq PRN Reason Stop Dose Admin Acetaminophen 1,000 mg 08/22/19 12:04 Ofirmev Injection - IVPB Q6H PRN PAIN LEVEL 7 - 10 Albuterol Sulfate 1 puff 08/22/19 12:04 Ventolin Hfa Inhaler - IH Q6H PRN WHEEZING Clotrimazole 1 applic 08/22/19 22:00 08/23/19 22:17 Gyne-Lotrimin - VG 1 applic HS BEBETO Administration Docusate Sodium 100 mg 08/23/19 10:00 08/24/19 09:04 Colace - PO 100 mg DAILY BEBETO Administration Fentanyl 25 mcg 08/22/19 12:04 Sublimaze Injection - IVPUSH [id number] PRN PAIN-PACU ORDER X 4 DOSES ONLY Ferrous Sulfate 325 mg 08/23/19 10:00 08/24/19 09:04 Feosol - PO 325 mg DAILY BEBETO Administration Lactated Ringer's 1,000 ml in 1,000 mls @ 50 mls/hr 08/24/19 08:11 Lactated Ringers Solution IV ASDIR BEBETO Multi-Ingredient Ointment 1 applic 08/22/19 22:00 08/24/19 09:04 Zinc Oxide TP 1 applic BID BEBETO Administration Ondansetron HCl 4 mg 08/22/19 12:04 Zofran Injection IVPUSH Q6H PRN NAUSEA AND/OR VOMITING ASSESSMENT/PLAN: Ms. Thompson is a 74y/o female with CKD, COPD, and recurrent UTIs who presents with hematuria x 3 days and abdominal pain x 4 days. #hematuria #normocytic anemia s/p PRBCs #hypotension -cystoscopy showed 2 right ureteral orifices, no left; some mucosal bleeding on right and right-posterior wall; biopsies taken; was hypotensive following -cytology negative; pathology pending -U/S kidneys showed b/l multiple renal cysts -ertapenem d/c'ed- negative urine cx -if hematuria persists, Amicar loading dose 3g followed by 2g IV or PO Q6H -decrease fluids and monitor BP #irregular lung nodule -found on CT 2.8x1.4x1.7cm left lung base, little significant change from November 2018 -recommend PET scan -pulm following #dilated CBD -normal t-bili -MRCP- cholelithiasis noted, 1.7cm dilated CBD same as November 2018, no gross mass noted, recommend GI consult for further imaging #vaginal rash, improved -clotrimazole -zinc oxide #hypomagnesemia, resolved #COPD -albuterol PRN #CKD -Cr and BUN normal #normocytic anemia -iron supplementation -monitor Hb #constipation -colace #elevated TSH -possible hypothyroidism -recheck out patient in a few weeks because could be stress-related #vision changes in right eye -CT head negative for acute changes -can f/u out patient for eye exam DVT Ppx SCDs FEN PO monitor Hb regular diet, add ensure dispo med/surg arranging VNS Visit type - Emergency Visit Emergency Visit: Yes ED Registration Date: 08/16/19 Care time: The patient presented to the Emergency Department on the above date and was hospitalized for further evaluation of their emergent condition. - New Patient This patient is new to me today: No - Critical Care Critical Care patient: No - Discharge Referral Referred to [facility] Med P.C.: No ATTENDING PHYSICIAN STATEMENT I saw and evaluated the patient. I reviewed the resident's note and discussed the case with the resident. I agree with the resident's findings and plan as documented. SUBJECTIVE: OBJECTIVE: ASSESSMENT AND PLAN:
--- NOTE | 2019-08-24 12:25 | PN ---
Progress Note (short form) - Note Progress Note: Denies shortness of breath, cough or wheezing. No acute events overnight. Intake & Output 08/21/19 08/22/19 08/23/19 08/24/19 23:59 23:59 23:59 23:59 Intake Total 3600 1670 3740 1100 Output Total 1300 2325 300 Balance 2300 -655 3440 1100 Weight 121 lb Last Vital Signs Temp Pulse Resp BP Pulse Ox 97.5 F L 99 H 20 93/54 L 99 08/24/19 09:05 08/24/19 09:05 08/24/19 09:05 08/24/19 09:05 08/24/19 08:47 Active Medications Acetaminophen (Ofirmev Injection -) 1,000 mg IVPB Q6H PRN PRN Reason: PAIN LEVEL 7 - 10 Albuterol Sulfate (Ventolin Hfa Inhaler -) 1 puff IH Q6H PRN PRN Reason: WHEEZING Clotrimazole (Gyne-Lotrimin -) 1 applic VG HS [facility] Last Admin: 08/23/19 22:17 Dose: 1 applic Docusate Sodium (Colace -) 100 mg PO DAILY [facility] Last Admin: 08/24/19 09:04 Dose: 100 mg Fentanyl (Sublimaze Injection -) 25 mcg IVPUSH [id number] PRN PRN Reason: PAIN-PACU ORDER X 4 DOSES ONLY Ferrous Sulfate (Feosol -) 325 mg PO DAILY [facility] Last Admin: 08/24/19 09:04 Dose: 325 mg Lactated Ringer's (Lactated Ringers Solution) 1,000 ml in 1,000 mls @ 50 mls/ hr IV ASDIR [facility] Multi-Ingredient Ointment (Zinc Oxide) 1 applic TP BID [facility] Last Admin: 08/24/19 09:04 Dose: 1 applic Ondansetron HCl (Zofran Injection) 4 mg IVPUSH Q6H PRN PRN Reason: NAUSEA AND/OR VOMITING Gen: NAD at rest Heart: RRR Lung: decreased breath sounds at the bases Abd: soft, nontender Ext: no edema Laboratory Results - last 24 hr 08/21/19 08/23/19 08/24/19 20:20 06:15 07:15 WBC 6.1 RBC 3.34 L Hgb 9.9 L Hct 29.7 L MCV 88.7 MCH 29.6 MCHC 33.4 RDW 15.7 H Plt Count 283 MPV 8.5 Absolute Neuts (auto) 3.7 Neutrophils % 60.6 Lymphocytes % 24.4 Monocytes % 9.6 Eosinophils % 4.7 H Basophils % 0.7 Nucleated RBC % 0 Sodium Potassium Chloride Carbon Dioxide Anion Gap BUN Creatinine Est GFR (CKD-EPI)AfAm Est GFR (CKD-EPI)NonAf Random Glucose Calcium Phosphorus Magnesium Total Bilirubin AST ALT Alkaline Phosphatase Total Protein Albumin PTH Intact 28 Serum KARENA Interpret IEP IgG 1186 IEP IgA 537 H IEP IgM 64 08/24/19 07:15 WBC RBC Hgb Hct MCV MCH MCHC RDW Plt Count MPV Absolute Neuts (auto) Neutrophils % Lymphocytes % Monocytes % Eosinophils % Basophils % Nucleated RBC % Sodium 140 Potassium 4.3 Chloride 104 Carbon Dioxide 31 Anion Gap 5 L BUN 19.9 H Creatinine 0.9 Est GFR (CKD-EPI)AfAm 72.49 Est GFR (CKD-EPI)NonAf 62.55 Random Glucose 66 L Calcium 9.8 Phosphorus 3.2 Magnesium 1.9 Total Bilirubin 0.2 AST 20 ALT 15 Alkaline Phosphatase 91 Total Protein 6.1 L Albumin 2.5 L PTH Intact Serum KARENA Interpret IEP IgG IEP IgA IEP IgM A/P Hematuria Acute Blood Loss Anemia UTI COPD Lung Nodule CKD - IR guided lung mass biopsy has been ordered - continue antibiotics - inhaled bronchodilators - DVT prophylaxis Dr Krueger
[2019-08-24 20:03] VITALS: BMI 22.8
[2019-08-24] MEDS: CLOTRIMAZOLE 1% VAGINAL CREAM WITH APPLICATOR 45 GM TUBE VG SCH (21:49)
[2019-08-25 04:20] VITALS: BP 106/56
[2019-08-25 08:03] LABS: BASO % 0.8 % (0-2.0); EOS % 7.5 % (0-4.5); HEMATOCRIT 29.3 % (32.4-45.2); HEMOGLOBIN 9.3 GM/dL (10.7-15.3); LYMPH % 30.7 % (8-40); MCH 28.6 pg (25.7-33.7); MCHC 31.7 g/dl (32.0-36.0); MEAN CELL VOLUME 90.2 fl (80-96); MONO % 12.1 % (3.8-10.2); NEUT % 48.9 % (42.8-82.8); PLATELET COUNT 278 K/MM3 (134-434); RBC 3.24 M/mm3 (3.60-5.2); RDW 15.4 % (11.6-15.6); WHITE BLOOD COUNT 5.9 K/mm3 (4.0-10.0)
[2019-08-25 08:34] LABS: ALBUMIN 2.4 g/dl (3.4-5.0); BILIRUBIN,TOTAL 0.3 mg/dL (0.2-1); BLOOD UREA NITROGEN 23.3 mg/dL (7-18); MAGNESIUM 1.9 mg/dL (1.8-2.4); PHOSPHOROUS 3.8 mg/dL (2.5-4.9); POTASSIUM 4.4 mmol/L (3.5-5.1); TOT PROT 5.8 g/dl (6.4-8.2)
[2019-08-25] MEDS: DOCUSATE SODIUM 100 MG CAPSULE (FP) PO SCH (09:32)
[2019-08-25] MEDS: FERROUS SO4 325 MG TABLET (FP) PO SCH (09:32)
[2019-08-25] MEDS: ZINC OXIDE 20% TOPICAL OINTMENT 30 GM TUBE TP SCH (09:32)
--- NOTE | 2019-08-25 11:36 | PN ---
Progress Note (short form) - Note Progress Note: Denies shortness of breath, cough or wheezing. No acute events overnight. Intake & Output 08/22/19 08/23/19 08/24/19 08/25/19 23:59 23:59 23:59 23:59 Intake Total 1670 3740 2100 250 Output Total 2325 300 Balance -655 3440 2100 250 Weight 121 lb Last Vital Signs Temp Pulse Resp BP Pulse Ox 98.1 F 97 H 20 106/56 L 99 08/25/19 05:55 08/25/19 05:55 08/25/19 07:58 08/25/19 05:55 08/25/19 07:58 Active Medications Acetaminophen (Ofirmev Injection -) 1,000 mg IVPB Q6H PRN PRN Reason: PAIN LEVEL 7 - 10 Albuterol Sulfate (Ventolin Hfa Inhaler -) 1 puff IH Q6H PRN PRN Reason: WHEEZING Clotrimazole (Gyne-Lotrimin -) 1 applic VG HS [facility] Last Admin: 08/24/19 21:49 Dose: 1 applic Docusate Sodium (Colace -) 100 mg PO DAILY [facility] Last Admin: 08/25/19 09:32 Dose: 100 mg Fentanyl (Sublimaze Injection -) 25 mcg IVPUSH [id number] PRN PRN Reason: PAIN-PACU ORDER X 4 DOSES ONLY Ferrous Sulfate (Feosol -) 325 mg PO DAILY [facility] Last Admin: 08/25/19 09:32 Dose: 325 mg Lactated Ringer's (Lactated Ringers Solution) 1,000 ml in 1,000 mls @ 50 mls/ hr IV ASDIR [facility] Multi-Ingredient Ointment (Zinc Oxide) 1 applic TP BID [facility] Last Admin: 08/25/19 09:32 Dose: 1 applic Ondansetron HCl (Zofran Injection) 4 mg IVPUSH Q6H PRN PRN Reason: NAUSEA AND/OR VOMITING Gen: NAD at rest Heart: RRR Lung: decreased breath sounds at the bases Abd: soft, nontender Ext: no edema Laboratory Results - last 24 hr 08/21/19 08/25/19 08/25/19 16:40 07:00 07:00 WBC 5.9 RBC 3.24 L Hgb 9.3 L Hct 29.3 L MCV 90.2 MCH 28.6 MCHC 31.7 L RDW 15.4 Plt Count 278 MPV 9.0 Absolute Neuts (auto) 2.9 Neutrophils % 48.9 Lymphocytes % 30.7 D Monocytes % 12.1 H Eosinophils % 7.5 H Basophils % 0.8 Nucleated RBC % 0 Sodium 140 Potassium 4.4 Chloride 104 Carbon Dioxide 29 Anion Gap 6 L BUN 23.3 H Creatinine 1.0 Est GFR (CKD-EPI)AfAm 63.82 Est GFR (CKD-EPI)NonAf 55.07 Random Glucose 78 Calcium 9.0 Phosphorus 3.8 Magnesium 1.9 Total Bilirubin 0.3 AST 15 ALT 15 Alkaline Phosphatase 70 Total Protein 5.8 L Albumin 2.4 L Blood Type O POSITIVE Antibody Screen Negative Crossmatch See Detail A/P Hematuria Acute Blood Loss Anemia UTI COPD Lung Nodule CKD - IR guided lung mass biopsy has been ordered: Can be performed as an outpatient. Can also have PET completed before biopsy as well. - inhaled bronchodilators - DVT prophylaxis - No Pulmonary contraindication for DC Dr Krueger
[2019-08-25 13:46] VITALS: PULSE 68; TEMP 97.9
--- NOTE | 2019-08-25 14:15 | PN ---
Progress Note (short form) - Note Progress Note: Patient is comfortable with no acute distress, no nausea or vomiting. no further pain. Vital Signs Temperature 97.9 F 08/25/19 13:45 Pulse Rate 68 08/25/19 13:45 Respiratory Rate 20 08/25/19 07:58 Blood Pressure 106/56 L 08/25/19 05:55 O2 Sat by Pulse Oximetry (%) 99 08/25/19 07:58 GENERAL: The patient is awake, alert, and fully oriented, in no acute distress. HEAD: Normal with no signs of trauma. EYES: PERRL, extraocular movements intact, sclera anicteric, conjunctiva clear. ENT: Ears normal, oropharynx clear without exudates, moist mucous membranes. NECK: Trachea midline, full range of motion, supple. LUNGS: Breath sounds equal, clear to auscultation bilaterally, no wheezes, no crackles, no accessory muscle use. HEART: Regular rate and rhythm, S1, S2 without murmur, rub or gallop. ABDOMEN: Soft, Nt,ND, normoactive bowel sounds, no guarding, no rebound, no hepatosplenomegaly, no masses. EXTREMITIES: 2+ pulses, warm, well-perfused, no edema. NEUROLOGICAL: Cranial nerves II through XII grossly intact. Normal speech, gait not observed. PSYCH: Normal mood, normal affect. SKIN: Warm, dry, normal turgor, no rashes or lesions noted CBCD WBC 5.9 K/mm3 (4.0-10.0) 08/25/19 07:00 RBC 3.24 M/mm3 (3.60-5.2) L 08/25/19 07:00 Hgb 9.3 GM/dL (10.7-15.3) L 08/25/19 07:00 Hct 29.3 % (32.4-45.2) L 08/25/19 07:00 MCV 90.2 fl (80-96) 08/25/19 07:00 MCHC 31.7 g/dl (32.0-36.0) L 08/25/19 07:00 RDW 15.4 % (11.6-15.6) 08/25/19 07:00 Plt Count 278 K/MM3 (134-434) 08/25/19 07:00 MPV 9.0 fl (7.5-11.1) 08/25/19 07:00 CMP Sodium 140 mmol/L (136-145) 08/25/19 07:00 Potassium 4.4 mmol/L (3.5-5.1) 08/25/19 07:00 Chloride 104 mmol/L (98-107) 08/25/19 07:00 Carbon Dioxide 29 mmol/L (21-32) 08/25/19 07:00 Anion Gap 6 MMOL/L (8-16) L 08/25/19 07:00 BUN 23.3 mg/dL (7-18) H 08/25/19 07:00 Creatinine 1.0 mg/dL (0.55-1.3) 08/25/19 07:00 Random Glucose 78 mg/dL (74-106) 08/25/19 07:00 Calcium 9.0 mg/dL (8.5-10.1) 08/25/19 07:00 Total Bilirubin 0.3 mg/dL (0.2-1) 08/25/19 07:00 AST 15 U/L (15-37) 08/25/19 07:00 ALT 15 U/L (13-61) 08/25/19 07:00 Alkaline Phosphatase 70 U/L (45-117) 08/25/19 07:00 Total Protein 5.8 g/dl (6.4-8.2) L 08/25/19 07:00 Albumin 2.4 g/dl (3.4-5.0) L 08/25/19 07:00 Current Medications Generic Name Dose Route Start Last Admin Trade Name Freq PRN Reason Stop Dose Admin Acetaminophen 1,000 mg 08/22/19 12:04 Ofirmev Injection - IVPB Q6H PRN PAIN LEVEL 7 - 10 Albuterol Sulfate 1 puff 08/22/19 12:04 Ventolin Hfa Inhaler - IH Q6H PRN WHEEZING Clotrimazole 1 applic 08/22/19 22:00 08/24/19 21:49 Gyne-Lotrimin - VG 1 applic HS BEBETO Administration Docusate Sodium 100 mg 08/23/19 10:00 08/25/19 09:32 Colace - PO 100 mg DAILY BEBETO Administration Fentanyl 25 mcg 08/22/19 12:04 Sublimaze Injection - IVPUSH [id number] PRN PAIN-PACU ORDER X 4 DOSES ONLY Ferrous Sulfate 325 mg 08/23/19 10:00 08/25/19 09:32 Feosol - PO 325 mg DAILY BEBETO Administration Lactated Ringer's 1,000 ml in 1,000 mls @ 50 mls/hr 08/24/19 08:11 Lactated Ringers Solution IV ASDIR BEBETO Multi-Ingredient Ointment 1 applic 08/22/19 22:00 08/25/19 09:32 Zinc Oxide TP 1 applic BID BEBETO Administration Ondansetron HCl 4 mg 08/22/19 12:04 Zofran Injection IVPUSH Q6H PRN NAUSEA AND/OR VOMITING Home Medications Medication Instructions Recorded Albuterol Sulfate Inhaler - 1 puff IH QID PRN 12/01/18 [Ventolin HFA Inhaler -] Ferrous Sulfate [Iron] 325 mg PO DAILY 12/01/18 Sennosides/Docusate Sodium 2 each PO DAILY 12/01/18 [Senna-Docusate Sodium Tablet] Mirabegron [Myrbetriq] 25 mg DAILY 08/17/19 Multivitamin [Multiple Vitamins] 1 each DAILY 08/17/19 Zinc Oxide 1 applic TP BID tube 08/25/19 ASSESSMENT AND PLAN: Patient is a 74yof, with Pmhx of recurrent UTIs, hematuria requiring transfusion , COPD, who presented with hematuria and urgency/dysuria x 1 month . # POD#4 s/p cystoscopy due to having hematuria with urgency and dyuria r/o bladder cancer.;bx prelim is negative, 2 ureteral orifices on R side, none on left. follow urine cytology , blood cx . dc'd ertapenem since no growth urinary . Transfuse as needed . as per urologist if bleeding worsens, or HB drops further, will be started on Amicar ( 3 g x 1 IV then 2 g po or IV q 6h) # CKD: Cr at base line. #Acute blood loss anemia. stable now, monitor H/H , transfuse as needed # Mild hypercalcemia: due to increased milk intake. PTH Nl, follow up with hem /onc, to discuss further # Weight loss. LLL lung mass 2.4x1.6 cm. Patient needs PET scan prior to lung bx , to assess if any further mass for possible mets. # TSH is only slightly elevated. follow up with material control associate. # Dilated CBD 1.[address] scan. MRCP was done . No choledecholithiasis, no gross mass noted. follow up with GI as an outpatient. 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 out pt f/u # R eye blurriness: chronic . f/u with opth as out pt. Nystatin and zinc oxide on genital area . Follow up with primary care doctor if no follow up with resident's clinic within a week, after discharge. Dr. Bocanegra, urology, or 1 week after discharge. You will get biopsy results from your bladder. Dr. Erickson, pulmonology, 1 week after discharge. You will probably need another scan of your lungs. Dr. Frost, hematology, 1 week after discharge. Please follow up with within a week to discuss the official result of your bladder biopsy. Also Thyroid function test to be repeated. PET Scan as an outpatient, Lung biopsy after the PET scan. Lung mass was seen in your left lung. You are getting a copy of the discs discussed with patient's daughter Haydee: [phone] Visit type - Emergency Visit Emergency Visit: Yes ED Registration Date: 08/16/19 Care time: The patient presented to the Emergency Department on the above date and was hospitalized for further evaluation of their emergent condition. - New Patient This patient is new to me today: No - Critical Care Critical Care patient: No - Discharge Referral Referred to [facility] Med P.C.: No
--- NOTE | 2019-08-27 13:44 | PATH ---
Surgical Pathology Report Patient Name: MELISSA ESPOSITO [facility]. Rec. #: [id number] /Age/Gender: 1945 (Age: 74) / F Account: [id number] Location: [address] [place] [address] Taken: 08/21/2019 Received: 08/23/2019 Reported: 08/27/2019 Physicians: MD Michael Naik M.D. Specimen(s) Received A: MUCOSA RIGHT LATERAL WALL B: MUCOSA POATERIOR WALL Clinical History Gross hematuria Final Diagnosis A. BLADDER MUCOSA, RIGHT LATERAL WALL, BIOPSY: PREDOMINATELY DENUDED UROTHELIAL MUCOSA WITH FOCAL EPITHELIAL ATYPIA, IN A BACKGROUND OF MARKED ACUTE AND FOLLICULAR CYSTITIS. SEE COMMENT. Comment: Immunohistochemical stains performed at [place], [place] ([id number]) and interpreted at [facility] show the following results: The focus of atypical epithelium shows diffuse membranous staining for CD44, while scattered nuclear positivity for P53, and negative for CK20. This immunophenotype in combination with the presence of marked inflammation favor a reactive process. B. BLADDER MUCOSA, POSTERIOR WALL, BIOPSY: UROTHELIAL MUCOSA WITH MARKED ACUTE AND FOLLICULAR CYSTITIS. Electronically Signed Darryl Vazquez M.D. Gross Description A. Received in formalin, labeled "biopsy bladder mucosa right lateral wall" is a roldan, irregular portion of soft tissue measuring 0.4 cm. in greatest dimension. The specimen is submitted in toto in one cassette. B. Received in formalin, labeled "biopsy bladder mucosa posterior wall" is a roldan, irregular portion of soft tissue measuring 0.4 cm. in greatest dimension. The specimen is submitted in toto in one cassette. 08/23/2019 [facility]08/23/2019
--- NOTE | 2019-08-28 15:49 | DS ---
Physical Exam: SUBJECTIVE: Patient seen and examined OBJECTIVE: PHYSICAL EXAM GENERAL: The patient is awake, alert, and fully oriented, in no acute distress. HEAD: Normal with no signs of trauma. EYES: PERRL, extraocular movements intact, sclera anicteric, conjunctiva clear. ENT: Ears normal, nares patent, oropharynx clear without exudates, moist mucous membranes. NECK: Trachea midline, full range of motion, supple. LUNGS: Breath sounds equal, clear to auscultation bilaterally, no wheezes, no crackles, no accessory muscle use. HEART: Regular rate and rhythm, S1, S2 without murmur, rub or gallop. ABDOMEN: Soft, nontender, nondistended, normoactive bowel sounds, no guarding, no rebound, no hepatosplenomegaly, no masses. EXTREMITIES: 2+ pulses, warm, well-perfused, no edema. NEUROLOGICAL: Cranial nerves II through XII grossly intact. Normal speech, gait not observed. PSYCH: Normal mood, normal affect. SKIN: Warm, dry, normal turgor, no rashes or lesions noted. LABS Laboratory Results - last 24 hr 08/21/19 20:20 Total Protein (PEP) 5.1 L Albumin (PEP) 2.4 L Globulin 2.7 Albumin/Globulin Ratio 0.9 Beta Globulins 0.8 KARENA M-Vic Not observed HOSPITAL COURSE: Date of Admission:08/16/19 Date of Discharge: 08/28/19 Discharge Summary Problems reviewed: Yes Reason For Visit: URINARY TRACT INFECTION, URINARY COMPLICATIONS Condition: Improved - Instructions Diet, Activity, Other Instructions: Hospital Visit: You were admitted to the hospital for blood in your urine. You were given antibiotics, and you were seen by the urologist who did biopsy of you r bladder , you were also given blood because you were anemic. A CAT scan of your chest was done and you will need follow up. Medications: continue your home medication. Follow Up: follow up with primary care doctor if no follow up with resident's clinic within a week, after discharge. Dr. Bocanegra, urology, or 1 week after discharge. You will get biopsy results from your bladder. Dr. Erickson, pulmonology, 1 week after discharge. You will probably need another scan of your lungs. Dr. Frost, hematology, 1 week after discharge. PET Scan as an outpatient, Lung biopsy after the PET scan. Lung mass was seen in your left lung. You are getting a copy of the discs Please follow up with within a week to discuss the official result of your bladder biopsy. Also Thyroid function test to be repeated. Other Instructions: Drink at least 8 glasses of water a day. It helps your bladder and blood pressure. Return to the emergency room or call 911 if you have a large amount of blood in your urine, feel weak or dizzy, fever above 101, abdominal pain, chest pain, or difficulty breathing. Referrals: Cruzito Mcclain MD [Staff Physician] - Luther Bocanegra MD [Staff Physician] - 1 Week Margot Corado MD [Staff Physician] - 1 Week Kaleb Krueger MD [Staff Physician] - 1 Week Disposition: HOME - Home Medications Comprehensive Discharge Medication List: Ambulatory Orders Albuterol Sulfate Inhaler - [Ventolin HFA Inhaler -] 1 puff IH QID PRN 12/01/18 Ferrous Sulfate [Iron] 325 mg PO DAILY 12/01/18 Sennosides/Docusate Sodium [Senna-Docusate Sodium Tablet] 2 each PO DAILY Mirabegron [Myrbetriq] 25 mg DAILY 08/17/19 Multivitamin [Multiple Vitamins] 1 each DAILY 08/17/19 Zinc Oxide 1 applic TP BID tube 08/25/19 - Discharge Referral Referred to [facility] Med P.C.: No ATTENDING PHYSICIAN STATEMENT I saw and evaluated the patient. I reviewed the resident's note and discussed the case with the resident. I agree with the resident's findings and plan as documented. SUBJECTIVE: OBJECTIVE: ASSESSMENT AND PLAN:
[2019-08-28 16:07] LABS: TOTAL PROTEIN, URINE 44.9 mg/dL (Not Estab.)
== END 2019-08-25 15:34 | disposition home or self-care (01) | DRG 669 ==
LOC: JER 16:19 → JERBED 21:56 → J6S 08-17 04:43 → JICU 08-21 19:18 → J6S 08-22 12:16
PROVIDERS: ADMIT Internal Medicine; ATTEND Internal Medicine
PROC: 0T5B8ZZ Destruction of Bladder, Via Natural or Artificial Opening Endoscopic (ICD-10-PCS; 2019-08-21)
PROC: 3E1K88X Irrigation of Genitourinary Tract using Irrigating Substance, Via Natural or Artificial Opening Endoscopic, Diagnostic (ICD-10-PCS; 2019-08-21)
PROC: 30233N1 Transfusion of Nonautologous Red Blood Cells into Peripheral Vein, Percutaneous Approach (ICD-10-PCS; 2019-08-21)
PROC: 0TBB8ZX Excision of Bladder, Via Natural or Artificial Opening Endoscopic, Diagnostic (ICD-10-PCS; principal; 2019-08-21 12:00)
DX: N30.81 Other cystitis with hematuria (principal); E46 Unspecified protein-calorie malnutrition; D62 Acute posthemorrhagic anemia; N17.9 Acute kidney failure, unspecified; J44.9 Chronic obstructive pulmonary disease, unspecified; E88.09 Other disorders of plasma-protein metabolism, not elsewhere classified; Z68.22 Body mass index [BMI] 22.0-22.9, adult; N18.9 Chronic kidney disease, unspecified; D63.8 Anemia in other chronic diseases classified elsewhere; E83.52 Hypercalcemia; R31.0 Gross hematuria; H54.61 Unqualified visual loss, right eye, normal vision left eye; N76.0 Acute vaginitis; R63.4 Abnormal weight loss; R91.8 Other nonspecific abnormal finding of lung field; D25.9 Leiomyoma of uterus, unspecified; E03.9 Hypothyroidism, unspecified; K82.8 Other specified diseases of gallbladder; R68.0 Hypothermia, not associated with low environmental temperature; I95.81 Postprocedural hypotension; K59.09 Other constipation; N28.1 Cyst of kidney, acquired; E83.42 Hypomagnesemia; Z88.0 Allergy status to penicillin
CPT/HCPCS: 36415; 36430; 70450-TC; 71045-TC-FY; 71250-TC; 74176-TC; 74181-TC; 76775-TC; 76856-TC; 80048; 80053; 81003; 82272; 82728; 82784; 83540; 83550; 83605; 83735; 83883; 83970; 84100; 84155; 84156; 84157; 84165; 84443; 85025; 85027; 85044; 85610; 85730; 86850; 86900; 86901; 86922; 87040; 87086; 88305-TC; 93005; 93010; 94760; 97116-GP; 97161-GP; 99284-25; J7030; P9058